=== PATIENT | male | born 1950 | race Two or more races ===

== ENCOUNTER → 2016-12-01 | Outpatient (CLI) | payer BC ==
[2016-12-01 09:30] LABS: Urine RBC None Seen /hpf (0 - 3)
[2016-12-01 09:48] LABS: Basophils # (auto) 0 uL; Basophils % (auto) 0.5 % (0.0-2.0); DEFINITIVE VIEW TRANSMISSION; Eosinophils # (auto) 0.8 uL; Eosinophils % (auto) 7.9 % (0.0-7.0); Hemoglobin 16.6 g/dL (13.5-17.5); Lymphocytes % (auto) 39.9 % (10.0-50.0); Mean Corpuscular Hgb Conc. 33.2 g/dL (32.0-36.0); Mean Corpuscular Volume 90.2 fL (80.0-100.0); Mean Platelet Volume 9.3 fL (7.4-10.4); Monocytes # (auto) 1.1 uL; Monocytes % (auto) 10.6 % (0.0-12.0); Neutrophils # (auto) 4.1 uL; Neutrophils % (auto) 41.1 % (37.0-80.0); Platelet Count (auto) 213 10^3/uL (140-450); Red Cell Distribution Width 12.4 % (11.6-16.0)
[2016-12-01 10:17] LABS: Urine Bilirubin Negative (Negative); Urine Blood Negative /uL (Negative); Urine Ketone Negative (Negative); Urine Nitrite Negative (Negative); Urine Squamous Epithelial Cell FEW /hpf (<5); Urine Urobilinogen Normal (Negative); Urine pH 5.5 (5.0-8.0)
[2016-12-01 10:26] LABS: Albumin 3.9 g/dL (3.4-5.0); BUN/Creatinine Ratio 15.6; Bilirubin, Total 1.8 mg/dL (0.2-1.0); Calcium 9.6 mg/dL (8.5-10.1); Potassium 3.8 mmol/L (3.5-5.1); Total Protein 7.5 g/dL (6.4-8.2); Uric Acid 4.2 mg/dL (3.5-7.2)
[2016-12-01 10:40] LABS: Urine Color Yellow (Yellow); Urine Glucose 4+ mg/dL (Normal)
== END | disposition home or self-care (01) ==
LOC: LAB 08:42
PROVIDERS: ATTEND Internal Medicine
DX: E11.42 Type 2 diabetes mellitus with diabetic polyneuropathy (principal); I10 Essential (primary) hypertension; E78.2 Mixed hyperlipidemia; E11.22 Type 2 diabetes mellitus with diabetic chronic kidney disease; Z12.5 Encounter for screening for malignant neoplasm of prostate
CPT/HCPCS: 36415; 80053; 80061; 81001; 82270; 82306; 83036; 83970; 84153; 84439; 84443; 84550; 85025

== ENCOUNTER → 2016-12-20 | Outpatient (CLI) | payer BC | END | disposition home or self-care (01) | LOC: XYW 10:58 | PROVIDERS: ATTEND Internal Medicine | DX: I25.10 Atherosclerotic heart disease of native coronary artery without angina pectoris (principal); I08.3 Combined rheumatic disorders of mitral, aortic and tricuspid valves; I27.2 Other secondary pulmonary hypertension | CPT/HCPCS: 93306 ==

== ENCOUNTER → 2017-03-21 | Outpatient (CLI) | payer MEDICARE, BC ==
[~2017-03-21] MED LIST: ALBU18 IN; ALBUTEROL SULF 2.5 MG/0.5ML(0.5%) NEB SOLN ONE; ASPI-231 PO; ATEN-60 PO; ATOR20TA50 PO; CHOL1000 PO; GABA-497 PO; HYDR-4663 PO; INSLANTI SC; INSLISPI SC; LOSA50TA6 PO; [UNRECOGNIZED DRUG - CODE] PO
== END | disposition home or self-care (01) ==
LOC: RT 08:45
PROVIDERS: ATTEND Internal Medicine
DX: J44.9 Chronic obstructive pulmonary disease, unspecified (principal)
CPT/HCPCS: 94060; 94640

== ENCOUNTER → 2017-05-18 | Outpatient (CLI) | payer MEDICARE, OTHER ==
[~2017-05-18] MED LIST changes: -ALBUTEROL SULF 2.5 MG/0.5ML(0.5%) NEB SOLN ONE
[2017-05-18 10:09] LABS: Urine RBC None Seen /hpf (0 - 3)
[2017-05-18 10:20] LABS: Urine Bilirubin Negative (Negative); Urine Blood Negative /uL (Negative); Urine Glucose 4+ mg/dL (Normal); Urine Ketone Negative (Negative); Urine Nitrite Negative (Negative); Urine Urobilinogen Normal (Negative); Urine pH 5.5 (5.0-8.0)
[2017-05-18 10:24] LABS: Urine Color Straw (Yellow)
[2017-05-18 10:44] LABS: BUN/Creatinine Ratio 15.8; Calcium 9.4 mg/dL (8.5-10.1); Potassium 3.9 mmol/L (3.5-5.1)
== END | disposition home or self-care (01) ==
LOC: LAB 09:55
PROVIDERS: ATTEND Internal Medicine
DX: N18.9 Chronic kidney disease, unspecified (principal); E11.9 Type 2 diabetes mellitus without complications; I50.33 Acute on chronic diastolic (congestive) heart failure
CPT/HCPCS: 36415; 80048; 81001; 83036

== ENCOUNTER → 2017-09-03 | Outpatient (CLI) | payer MEDICARE, OTHER ==
[~2017-09-03] MED LIST changes: -HYDR-4663 PO; +HYDR-4683 PO
[2017-09-03 07:34] LABS: Urine RBC None Seen /hpf (0 - 3)
[2017-09-03 07:37] LABS: Basophils # (auto) 0.1 uL; Basophils % (auto) 0.9 % (0.0-2.0); Eosinophils # (auto) 0.6 uL; Eosinophils % (auto) 6.1 % (0.0-7.0); Hematocrit 48.7 % (41.0-53.0); Hemoglobin 16.6 g/dL (13.5-17.5); Lymphocytes # (auto) 3.5 uL; Lymphocytes % (auto) 36.8 % (10.0-50.0); Mean Corpuscular Hemoglobin 31.1 pg (28.0-32.0); Mean Corpuscular Volume 91.3 fL (80.0-100.0); Mean Platelet Volume 8.7 fL (6.9-10.8); Monocytes % (auto) 10.3 % (0.0-12.0); Neutrophils # (auto) 4.4 uL; Neutrophils % (auto) 45.9 % (37.0-80.0); Nucleated Red Blood Cells % 0.1 %; Platelet Count (auto) 185 10^3/uL (140-450); White Blood Cell 9.6 10^3/uL (4.4-10.8)
[2017-09-03 07:57] LABS: Albumin 3.9 g/dL (3.4-5.0); Alkaline Phosphatase 114 U/L (45-117); Anion Gap 8 (5-15); Aspartate Aminotransferase 24 U/L (15-37); BUN/Creatinine Ratio 19.5; Blood Urea Nitrogen 36 mg/dL (7-18); Calcium 9.2 mg/dL (8.5-10.1); Carbon Dioxide 24 mmol/L (21-32); Chloride 105 mmol/L (98-107); Cholesterol 173 mg/dL (< 200); GFR African American 47 mL/min; GFR Non-African American 39 mL/min; Glucose 259 mg/dL (74-106); HDL Cholesterol 33 mg/dL (40-59); Potassium 4.1 mmol/L (3.5-5.1); Sodium 137 mmol/L (136-145); Total Protein 7.6 g/dL (6.4-8.2); Triglycerides 436 mg/dL (< 150)
[2017-09-03 08:03] LABS: Urine Bilirubin Negative (Negative); Urine Blood Negative /uL (Negative); Urine Color Yellow (Yellow); Urine Glucose 4+ mg/dL (Normal); Urine Ketone Negative (Negative); Urine Nitrite Negative (Negative); Urine Squamous Epithelial Cell FEW /hpf (<5); Urine Urobilinogen Normal (Negative); Urine pH 5.5 (5.0-8.0)
== END | disposition home or self-care (01) ==
LOC: LAB 07:05
PROVIDERS: ATTEND Physician Assistant
DX: Z00.01 Encounter for general adult medical examination with abnormal findings (principal); I10 Essential (primary) hypertension; E11.9 Type 2 diabetes mellitus without complications; E78.2 Mixed hyperlipidemia
CPT/HCPCS: 36415; 80053; 80061; 81001; 83036; 85025

== ENCOUNTER → 2017-10-09 | Outpatient (CLI) | payer MEDICARE, OTHER ==
[~2017-10-09] VITALS: Ht 172.7 cm; Wt 104.8 kg
[~2017-10-09] MED LIST changes: +ADENOSINE 88 MG in GIVE UN-DILUTED 0 ML IV ONE; -GABA-497 PO; +GABA300C11 PO
[2017-10-09 09:52] VITALS: BP 139/76
== END | disposition home or self-care (01) ==
LOC: XY 07:53
PROVIDERS: ATTEND Internal Medicine
DX: I25.10 Atherosclerotic heart disease of native coronary artery without angina pectoris (principal)
CPT/HCPCS: 93017; J0153

== ENCOUNTER → 2017-10-30 | Outpatient (CLI) | payer MEDICARE, OTHER ==
[~2017-10-30] MED LIST changes: -ADENOSINE 88 MG in GIVE UN-DILUTED 0 ML IV ONE
== END | disposition home or self-care (01) ==
LOC: LAB 10:25
PROVIDERS: ATTEND Internal Medicine Cardiovascular Disease
DX: I13.0 Hypertensive heart and chronic kidney disease with heart failure and stage 1 through stage 4 chronic kidney disease, or unspecified chronic kidney disease (principal); E11.22 Type 2 diabetes mellitus with diabetic chronic kidney disease; I50.9 Heart failure, unspecified; N18.3 Chronic kidney disease, stage 3 (moderate); J44.9 Chronic obstructive pulmonary disease, unspecified; I25.10 Atherosclerotic heart disease of native coronary artery without angina pectoris; E78.5 Hyperlipidemia, unspecified
CPT/HCPCS: 83880

== ENCOUNTER → 2018-01-08 | Outpatient (CLI) | payer MEDICARE, OTHER ==
[2018-01-08 08:12] LABS: Basophils # (auto) 0.1 uL; Basophils % (auto) 0.9 % (0.0-2.0); Eosinophils # (auto) 0.5 uL; Eosinophils % (auto) 5.3 % (0.0-7.0); Hematocrit 46.6 % (41.0-53.0); Hemoglobin 15.6 g/dL (13.5-17.5); Lymphocytes # (auto) 3.5 uL; Lymphocytes % (auto) 40.9 % (10.0-50.0); Mean Corpuscular Hemoglobin 30.1 pg (28.0-32.0); Mean Corpuscular Hgb Conc. 33.5 g/dL (32.0-36.0); Mean Corpuscular Volume 89.7 fL (80.0-100.0); Monocytes # (auto) 0.9 uL; Monocytes % (auto) 10.2 % (0.0-12.0); Neutrophils # (auto) 3.7 uL; Neutrophils % (auto) 42.7 % (37.0-80.0); Nucleated Red Blood Cells % 0.1 %; Platelet Count (auto) 207 10^3/uL (140-450); Red Blood Cells 5.19 10^6/uL (4.5-5.90); Red Cell Distribution Width 12.7 % (11.8-14.3); White Blood Cell 8.6 10^3/uL (4.4-10.8)
[2018-01-08 08:56] LABS: Anion Gap 9 (5-15); BUN/Creatinine Ratio 21.5; Blood Urea Nitrogen 52 mg/dL (7-18); Calcium 9.7 mg/dL (8.5-10.1); Carbon Dioxide 21 mmol/L (21-32); Chloride 105 mmol/L (98-107); Cholesterol 213 mg/dL (< 200); GFR African American 34 mL/min; GFR Non-African American 28 mL/min; Glucose 225 mg/dL (74-106); HDL Cholesterol 33 mg/dL (40-59); Potassium 4.8 mmol/L (3.5-5.1); Sodium 135 mmol/L (136-145); Triglycerides 459 mg/dL (< 150)
== END | disposition home or self-care (01) ==
LOC: LAB 07:22
PROVIDERS: ATTEND Internal Medicine Cardiovascular Disease
DX: E11.22 Type 2 diabetes mellitus with diabetic chronic kidney disease (principal); I13.0 Hypertensive heart and chronic kidney disease with heart failure and stage 1 through stage 4 chronic kidney disease, or unspecified chronic kidney disease; N18.3 Chronic kidney disease, stage 3 (moderate); I50.22 Chronic systolic (congestive) heart failure; E78.5 Hyperlipidemia, unspecified; J44.9 Chronic obstructive pulmonary disease, unspecified
CPT/HCPCS: 36415; 80048; 80061; 83036; 83880; 85025

== ENCOUNTER → 2018-04-02 | Outpatient (CLI) | payer MEDICARE, OTHER ==
[~2018-04-02] MED LIST changes: +LINA5TAB PO; +SPIR25TA89 PO
[2018-04-02 07:52] LABS: Basophils # (auto) 0.1 uL; Basophils % (auto) 0.6 % (0.0-2.0); Eosinophils # (auto) 0.3 uL; Eosinophils % (auto) 4.4 % (0.0-7.0); Hematocrit 43.9 % (41.0-53.0); Hemoglobin 14.9 g/dL (13.5-17.5); Lymphocytes # (auto) 2.8 uL; Lymphocytes % (auto) 35.2 % (10.0-50.0); Mean Corpuscular Hemoglobin 31.2 pg (28.0-32.0); Mean Corpuscular Volume 91.8 fL (80.0-100.0); Monocytes # (auto) 0.8 uL; Monocytes % (auto) 10.2 % (0.0-12.0); Neutrophils # (auto) 3.9 uL; Neutrophils % (auto) 49.6 % (37.0-80.0); Nucleated Red Blood Cells % 0.1 %; Platelet Count (auto) 216 10^3/uL (140-450); Red Blood Cells 4.78 10^6/uL (4.5-5.90); Red Cell Distribution Width 12.8 % (11.8-14.3); White Blood Cell 7.9 10^3/uL (4.4-10.8)
[2018-04-02 08:15] LABS: Alanine Aminotransferase 50 U/L (16-61); Albumin 3.9 g/dL (3.4-5.0); Alkaline Phosphatase 95 U/L (45-117); Anion Gap 12 (5-15); Aspartate Aminotransferase 25 U/L (15-37); BUN/Creatinine Ratio 23.4; Bilirubin, Total 0.9 mg/dL (0.2-1.0); Blood Urea Nitrogen 58 mg/dL (7-18); Calcium 9.6 mg/dL (8.5-10.1); Carbon Dioxide 19 mmol/L (21-32); Chloride 104 mmol/L (98-107); Cholesterol 246 mg/dL (< 200); GFR African American 34 mL/min; GFR Non-African American 28 mL/min; Glucose 230 mg/dL (74-106); HDL Cholesterol 28 mg/dL (40-59); Sodium 135 mmol/L (136-145); Total Protein 7.7 g/dL (6.4-8.2); Triglycerides 819 mg/dL (< 150)
== END | disposition home or self-care (01) ==
LOC: LAB 07:23
PROVIDERS: ATTEND Physician Assistant
DX: R35.1 Nocturia (principal); I13.0 Hypertensive heart and chronic kidney disease with heart failure and stage 1 through stage 4 chronic kidney disease, or unspecified chronic kidney disease; E11.22 Type 2 diabetes mellitus with diabetic chronic kidney disease; I50.22 Chronic systolic (congestive) heart failure; N18.3 Chronic kidney disease, stage 3 (moderate); I25.5 Ischemic cardiomyopathy; E78.5 Hyperlipidemia, unspecified; Z79.899 Other long term (current) drug therapy; Z79.4 Long term (current) use of insulin; Z79.82 Long term (current) use of aspirin
CPT/HCPCS: 36415; 80053; 80061; 83036; 84153; 85025

== ENCOUNTER → 2018-07-22 | Outpatient (CLI) | payer MEDICARE, OTHER ==
[~2018-07-22] MED LIST changes: +LOSA-46 PO; -LOSA50TA6 PO; +SPIR25TA8 PO; -SPIR25TA89 PO
[2018-07-22 10:43] LABS: Basophils # (auto) 0.1 uL; Basophils % (auto) 0.9 % (0.0-2.0); Eosinophils # (auto) 0.4 uL; Eosinophils % (auto) 6.2 % (0.0-7.0); Hematocrit 51.6 % (41.0-53.0); Hemoglobin 17.1 g/dL (13.5-17.5); Lymphocytes # (auto) 2.7 uL; Lymphocytes % (auto) 38.2 % (10.0-50.0); Mean Corpuscular Hemoglobin 30.9 pg (28.0-32.0); Mean Corpuscular Hgb Conc. 33.2 g/dL (32.0-36.0); Mean Corpuscular Volume 93.1 fL (80.0-100.0); Monocytes # (auto) 0.8 uL; Monocytes % (auto) 10.7 % (0.0-12.0); Neutrophils # (auto) 3.1 uL; Platelet Count (auto) 204 10^3/uL (140-450); Red Blood Cells 5.54 10^6/uL (4.5-5.90); Red Cell Distribution Width 13.2 % (11.8-14.3); White Blood Cell 7.1 10^3/uL (4.4-10.8)
[2018-07-22 10:53] LABS: Urine Bacteria NONE SEEN /hpf (None Seen); Urine Blood Negative /uL (Negative); Urine Specific Gravity 1.013 (1.001-1.035); Urine WBC <1 /hpf (0 - 3)
[2018-07-22 11:56] LABS: Calcium 9.4 mg/dL (8.5-10.1)
[2018-07-22 11:58] LABS: Protein, Urine 26.3 mg/dL (0.0-11.9)
[2018-07-22 11:59] LABS: BUN/Creatinine Ratio 16.3; Phosphorus 2.5 mg/dL (2.5-4.90)
== END | disposition home or self-care (01) ==
LOC: LAB 09:12
PROVIDERS: ATTEND Student in an Organized Health Care Education/Training Program
DX: I12.9 Hypertensive chronic kidney disease with stage 1 through stage 4 chronic kidney disease, or unspecified chronic kidney disease (principal); E13.22 Other specified diabetes mellitus with diabetic chronic kidney disease; N18.3 Chronic kidney disease, stage 3 (moderate); R80.9 Proteinuria, unspecified; R82.90 Unspecified abnormal findings in urine; E83.39 Other disorders of phosphorus metabolism; D63.1 Anemia in chronic kidney disease
CPT/HCPCS: 36415; 80048; 81001; 82570; 83036; 84100; 84156; 85025

== ENCOUNTER → 2018-08-06 | Outpatient (CLI) | payer MEDICARE, OTHER ==
[2018-08-06 08:19] LABS: Urine WBC None Seen /hpf (0 - 3)
[2018-08-06 08:30] LABS: Urine Bacteria NONE SEEN /hpf (None Seen); Urine Blood Negative /uL (Negative); Urine Specific Gravity 1.019 (1.001-1.035)
[2018-08-06 08:31] LABS: Basophils # (auto) 0.1 uL; Basophils % (auto) 0.7 % (0.0-2.0); Eosinophils # (auto) 0.5 uL; Eosinophils % (auto) 6.7 % (0.0-7.0); Hematocrit 51.3 % (41.0-53.0); Lymphocytes # (auto) 2.9 uL; Lymphocytes % (auto) 37.8 % (10.0-50.0); Mean Corpuscular Hemoglobin 30.8 pg (28.0-32.0); Mean Corpuscular Hgb Conc. 33.2 g/dL (32.0-36.0); Mean Corpuscular Volume 92.5 fL (80.0-100.0); Monocytes # (auto) 0.8 uL; Monocytes % (auto) 9.9 % (0.0-12.0); Neutrophils # (auto) 3.4 uL; Neutrophils % (auto) 44.9 % (37.0-80.0); Platelet Count (auto) 206 10^3/uL (140-450); Red Blood Cells 5.54 10^6/uL (4.5-5.90); Red Cell Distribution Width 13.3 % (11.8-14.3); White Blood Cell 7.6 10^3/uL (4.4-10.8)
[2018-08-06 08:45] LABS: Albumin 3.9 g/dL (3.4-5.0); Calcium 9.3 mg/dL (8.5-10.1); Potassium 4.3 mmol/L (3.5-5.1)
[2018-08-06 08:49] LABS: BUN/Creatinine Ratio 16.6; Bilirubin, Total 1.1 mg/dL (0.2-1.0); Total Protein 7.5 g/dL (6.4-8.2)
== END | disposition home or self-care (01) ==
LOC: LAB 07:45
PROVIDERS: ATTEND Physician Assistant
DX: E11.22 Type 2 diabetes mellitus with diabetic chronic kidney disease (principal); I13.0 Hypertensive heart and chronic kidney disease with heart failure and stage 1 through stage 4 chronic kidney disease, or unspecified chronic kidney disease; N18.3 Chronic kidney disease, stage 3 (moderate); I50.22 Chronic systolic (congestive) heart failure; E78.5 Hyperlipidemia, unspecified; G47.33 Obstructive sleep apnea (adult) (pediatric); E78.1 Pure hyperglyceridemia
CPT/HCPCS: 36415; 80053; 80061; 81001; 83036; 84153; 85025

== ENCOUNTER → 2018-11-01 | Outpatient (CLI) | payer MEDICARE, OTHER ==
[2018-11-01 09:16] LABS: Basophils # (auto) 0 uL; Basophils % (auto) 0.6 % (0.0-2.0); Eosinophils # (auto) 0.3 uL; Eosinophils % (auto) 4.5 % (0.0-7.0); Hematocrit 50.3 % (41.0-53.0); Hemoglobin 17.2 g/dL (13.5-17.5); Lymphocytes # (auto) 3.2 uL; Lymphocytes % (auto) 42.7 % (10.0-50.0); Mean Corpuscular Hemoglobin 30.9 pg (28.0-32.0); Mean Corpuscular Hgb Conc. 34.2 g/dL (32.0-36.0); Mean Corpuscular Volume 90.2 fL (80.0-100.0); Monocytes # (auto) 0.8 uL; Neutrophils # (auto) 3.2 uL; Neutrophils % (auto) 42.2 % (37.0-80.0); Nucleated Red Blood Cells % 0.2 %; Platelet Count (auto) 194 10^3/uL (140-450); Red Blood Cells 5.57 10^6/uL (4.5-5.90); Red Cell Distribution Width 13.3 % (11.8-14.3); Urine Blood Negative /uL (Negative); Urine Specific Gravity 1.013 (1.001-1.035); White Blood Cell 7.6 10^3/uL (4.4-10.8)
[2018-11-01 09:24] LABS: Creatinine, Urine 81 mg/dL (30.0-125.0); Sodium Urine 100 mmol/L (40-220)
[2018-11-01 10:03] LABS: Albumin 3.8 g/dL (3.4-5.0); Calcium 9.1 mg/dL (8.5-10.1)
[2018-11-01 10:06] LABS: BUN/Creatinine Ratio 13.7; Bilirubin, Total 1.3 mg/dL (0.2-1.0); Total Protein 7.3 g/dL (6.4-8.2)
== END | disposition home or self-care (01) ==
LOC: LAB 08:42
PROVIDERS: ATTEND Student in an Organized Health Care Education/Training Program
DX: R80.9 Proteinuria, unspecified (principal)
CPT/HCPCS: 36415; 80053; 81003; 82570; 84133; 84300; 85025

== ENCOUNTER → 2019-04-28 | Outpatient (CLI) | payer MEDICARE, OTHER ==
[~2019-04-28] MED LIST changes: -HYDR-4683 PO; +HYDR-4833 PO; -LOSA-46 PO; +LOSA-69 PO
[2019-04-28 09:53] LABS: Urine Blood Negative /uL (Negative); Urine Specific Gravity 1.007 (1.001-1.035)
[2019-04-28 09:57] LABS: Basophils # (auto) 0.1 uL; Eosinophils # (auto) 0.3 uL; Lymphocytes # (auto) 3.2 uL; Lymphocytes % (auto) 39.4 % (10.0-50.0); Red Cell Distribution Width 13.2 % (11.8-14.3)
[2019-04-28 10:00] LABS: Basophils % (auto) 0.6 % (0.0-2.0); Eosinophils % (auto) 4.2 % (0.0-7.0); Hematocrit 51.8 % (41.0-53.0); Hemoglobin 17.8 g/dL (13.5-17.5); Mean Corpuscular Hgb Conc. 34.3 g/dL (32.0-36.0); Mean Corpuscular Volume 90.5 fL (80.0-100.0); Monocytes # (auto) 0.8 uL; Monocytes % (auto) 10.3 % (0.0-12.0); Neutrophils # (auto) 3.7 uL; Neutrophils % (auto) 45.5 % (37.0-80.0); Nucleated Red Blood Cells % 0.2 %; Platelet Count (auto) 186 10^3/uL (140-450); Red Blood Cells 5.73 10^6/uL (4.5-5.90); White Blood Cell 8.2 10^3/uL (4.4-10.8)
[2019-04-28 10:28] LABS: Creatinine, Urine 23 mg/dL (30.0-125.0); Protein, Urine 24.9 mg/dL (0.0-11.9)
[2019-04-28 10:29] LABS: Albumin 3.9 g/dL (3.4-5.0); BUN/Creatinine Ratio 19.7; Calcium 9.5 mg/dL (8.5-10.1); Phosphorus 3.1 mg/dL (2.5-4.90); Uric Acid 5.3 mg/dL (3.5-7.2)
== END | disposition home or self-care (01) ==
LOC: LAB 09:11
PROVIDERS: ATTEND Student in an Organized Health Care Education/Training Program
DX: E55.9 Vitamin D deficiency, unspecified (principal); I12.9 Hypertensive chronic kidney disease with stage 1 through stage 4 chronic kidney disease, or unspecified chronic kidney disease; E11.22 Type 2 diabetes mellitus with diabetic chronic kidney disease; N18.3 Chronic kidney disease, stage 3 (moderate); D63.1 Anemia in chronic kidney disease; E21.3 Hyperparathyroidism, unspecified; N39.0 Urinary tract infection, site not specified; M10.9 Gout, unspecified
CPT/HCPCS: 36415; 80069; 81003; 82306; 82570; 83970; 84156; 84550; 85025

== ENCOUNTER → 2019-11-04 | Outpatient (CLI) | payer MEDICARE, OTHER ==
[2019-11-04 09:25] LABS: Urine WBC None Seen /hpf (0 - 3)
[2019-11-04 09:34] LABS: Basophils # (auto) 0.1 uL; Basophils % (auto) 0.7 % (0.0-2.0); Eosinophils # (auto) 0.3 uL; Lymphocytes # (auto) 3.1 uL; Monocytes # (auto) 0.9 uL; White Blood Cell 8.5 10^3/uL (4.4-10.8)
[2019-11-04 09:37] LABS: Eosinophils % (auto) 3.6 % (0.0-7.0); Hematocrit 53.3 % (41.0-53.0); Hemoglobin 18.4 g/dL (13.5-17.5); Lymphocytes % (auto) 36.5 % (10.0-50.0); Mean Corpuscular Hemoglobin 31.6 pg (28.0-32.0); Mean Corpuscular Hgb Conc. 34.5 g/dL (32.0-36.0); Mean Corpuscular Volume 91.6 fL (80.0-100.0); Monocytes % (auto) 10.5 % (0.0-12.0); Neutrophils # (auto) 4.2 uL; Neutrophils % (auto) 48.7 % (37.0-80.0); Nucleated Red Blood Cells % 0.1 %; Platelet Count (auto) 183 10^3/uL (140-450); Red Blood Cells 5.82 10^6/uL (4.5-5.90)
[2019-11-04 09:44] LABS: Urine Bacteria NONE SEEN /hpf (None Seen); Urine Blood Negative /uL (Negative); Urine Specific Gravity 1.018 (1.001-1.035)
[2019-11-04 09:56] LABS: Potassium 4.4 mmol/L (3.5-5.1)
[2019-11-04 10:08] LABS: Albumin 3.9 g/dL (3.4-5.0); BUN/Creatinine Ratio 16.9; Bilirubin, Total 1.1 mg/dL (0.2-1.0); Calcium 9.7 mg/dL (8.5-10.1); Total Protein 7.7 g/dL (6.4-8.2)
== END | disposition home or self-care (01) ==
LOC: LAB 08:43
PROVIDERS: ATTEND Student in an Organized Health Care Education/Training Program
DX: Z12.5 Encounter for screening for malignant neoplasm of prostate (principal); E11.22 Type 2 diabetes mellitus with diabetic chronic kidney disease; E11.69 Type 2 diabetes mellitus with other specified complication; I12.9 Hypertensive chronic kidney disease with stage 1 through stage 4 chronic kidney disease, or unspecified chronic kidney disease; N18.3 Chronic kidney disease, stage 3 (moderate); E78.5 Hyperlipidemia, unspecified; E78.1 Pure hyperglyceridemia
CPT/HCPCS: 36415; 80053; 80061; 81001; 83036; 84153; 85025

== ENCOUNTER → 2019-11-27 | Outpatient (CLI) | payer MEDICARE | END | disposition home or self-care (01) | LOC: XYW 13:51 | PROVIDERS: ATTEND Internal Medicine Pulmonary Disease | DX: I70.0 Atherosclerosis of aorta (principal); R06.02 Shortness of breath | CPT/HCPCS: 71046; 78582; A9540; A9558 ==

== ENCOUNTER → 2019-11-28 | Outpatient (CLI) | payer MEDICARE | END | disposition home or self-care (01) | LOC: XYW 09:45 | PROVIDERS: ATTEND Internal Medicine | DX: I34.0 Nonrheumatic mitral (valve) insufficiency (principal) | CPT/HCPCS: 93306 ==

== ENCOUNTER → 2019-12-29 | Outpatient (CLI) | payer MEDICARE ==
[2019-12-29 11:39] LABS: BUN/Creatinine Ratio 14.8; Calcium 9.6 mg/dL (8.5-10.1); Potassium 4.1 mmol/L (3.5-5.1)
== END | disposition home or self-care (01) ==
LOC: LAB 10:55
PROVIDERS: ATTEND Internal Medicine
DX: R06.09 Other forms of dyspnea (principal)
CPT/HCPCS: 36415; 80048; 83880

== ENCOUNTER → 2020-02-17 | Outpatient (CLI) | payer MEDICARE ==
[2020-02-17 11:32] LABS: Calcium 9.9 mg/dL (8.5-10.1); Potassium 3.9 mmol/L (3.5-5.1)
== END | disposition home or self-care (01) ==
LOC: LAB 10:17
PROVIDERS: ATTEND Internal Medicine
DX: R06.02 Shortness of breath (principal); I10 Essential (primary) hypertension
CPT/HCPCS: 36415; 80048; 83880

== ENCOUNTER → 2020-02-26 | Outpatient (CLI) | payer MEDICARE ==
[~2020-02-26] MED LIST changes: +ASPI-498 PO; +CANA300T PO; +CARV12.544 PO; +CARV25TA55 PO; +CHOL1TAB42 PO; +FLUT110A INH; +FURO1TAB31 PO; +GABA-339 PO; +HYDR-392 PO; +LEVO500T21 PO; +METR500T PO; +PANT40TA2 PO; +SACU1TAB PO; +SUCR1TAB22 PO
== END | disposition home or self-care (01) ==
LOC: XYW 10:24
PROVIDERS: ATTEND Internal Medicine
DX: I08.3 Combined rheumatic disorders of mitral, aortic and tricuspid valves (principal); I10 Essential (primary) hypertension; I25.5 Ischemic cardiomyopathy
CPT/HCPCS: 93306

== ENCOUNTER 2020-05-12 00:04 | Inpatient (IN) | payer MEDICARE, BC ==
[~2020-05-12] VITALS: Ht 172.7 cm; Wt 96.2 kg
[~2020-05-12 00:04] MED LIST changes: -ASPI-498 PO; -CANA300T PO; -CARV12.544 PO; -CARV25TA55 PO; -CHOL1TAB42 PO; -FLUT110A INH; -FURO1TAB31 PO; -GABA-339 PO; -HYDR-392 PO; -LEVO500T21 PO; -METR500T PO; -PANT40TA2 PO; -SACU1TAB PO; -SUCR1TAB22 PO
[2020-05-12] MEDS ORDERED: PANTOPRAZOLE 40 MG/10 ML VIAL INJ IV ONE ×2 (02:23→05:15)
[2020-05-12] MEDS ORDERED: PANTOPRAZOLE 40mg/50ML NS AE 50 ML IV ONE ×2 (02:23→05:15)
[2020-05-12 03:55] LABS: INR 1.08 (0.9-1.15); Partial Thromboplastin Time 25.7 sec (23.0-31.2)
[2020-05-12 03:57] LABS: Basophils # (auto) 0.1 10 ^3/uL (0-0.2); Basophils % (auto) 0.6 % (0.0-2.0); Eosinophils # (auto) 0.3 10 ^3/uL (0-0.8); Eosinophils % (auto) 2.4 % (0.0-7.0); Hematocrit 48.4 % (41.0-53.0); Hemoglobin 16.1 g/dL (13.5-17.5); Lymphocytes # (auto) 4.1 10 ^3/uL (0.4-5.4); Lymphocytes % (auto) 29.6 % (10.0-50.0); Mean Corpuscular Hemoglobin 30.8 pg (28.0-32.0); Mean Corpuscular Hgb Conc. 33.2 g/dL (32.0-36.0); Mean Corpuscular Volume 92.7 fL (80.0-100.0); Monocytes % (auto) 7.4 % (0.0-12.0); Neutrophils # (auto) 8.3 10 ^3/uL (1.6-8.6); Nucleated Red Blood Cells % 0.2 %; Platelet Count (auto) 217 10^3/uL (140-450); Red Blood Cells 5.22 10^6/uL (4.5-5.90); Red Cell Distribution Width 12.8 % (11.8-14.3); White Blood Cell 13.9 10^3/uL (4.4-10.8)
[2020-05-12 03:58] LABS: Albumin 3.6 g/dL (3.4-5.0); BUN/Creatinine Ratio 26.7; Bilirubin, Total 1.7 mg/dL (0.2-1.0); Calcium 8.9 mg/dL (8.5-10.1); Potassium 5.5 mmol/L (3.5-5.1); Total Protein 7.4 g/dL (6.4-8.2)
[2020-05-12] MEDS ORDERED: SODIUM CHLORIDE 0.9% 1,000 ML IV ONE ×2 (05:15→14:00)
[2020-05-12] MEDS ORDERED: ONDANSETRON HCL 4 MG/2 ML VIAL IV PRN (06:00)
[2020-05-12] MEDS ORDERED: DEXTROSE (50%) 50ML SYRG IV PRN (06:00)
[2020-05-12] MEDS ORDERED: SODIUM ZIRCONIUM CYCL 10 GM PAK PO ONE (06:00)
[2020-05-12] MEDS ORDERED: NITROGLYCERIN 0.4 MG SL TAB SL PRN (06:00)
[2020-05-12] MEDS ORDERED: MORPHINE SULF INJ 2 MG/ML SYRINGE 1ML IV PRN (06:00)
[2020-05-12 06:14] LABS: Hematocrit 44.5 % (41.0-53.0); Hemoglobin 15.1 g/dL (13.5-17.5)
[2020-05-12] MEDS: ACCU-CHEK COMFORT CURVE STRIP VI SCH ×4 (06:21→23:55)
[2020-05-12] MEDS: InsuLIN REG 1unit/0.01ml Soln (100units/ml) SC SCH ×4 (06:21→23:55)
--- NOTE | 2020-05-12 10:30 | NUR ---
Telemetry admit from ER PAM MIX admitted to Telemetry unit after SBAR received. Patient oriented to LIANA GALDAMEZ, primary RN, unit, room, bed, and unit policies regarding patient care and visiting hours. Patient now on continuous telemetry monitoring, tele box #40. Patient weighed by bedscale and encouraged to call if they need something. All questions and concerns addressed, patient verbalized understanding. Pt is NPO. No vomiting noted at this time.
[2020-05-12] MEDS: PANTOPRAZOLE 40 MG/10 ML VIAL INJ IV SCH ×2 (10:42→21:38)
[2020-05-12] MEDS ORDERED: GABA-339 PO (11:56)
[2020-05-12] MEDS ORDERED: FURO1TAB31 PO (11:56)
[2020-05-12] MEDS ORDERED: INSLANTI SC (11:56)
[2020-05-12] MEDS ORDERED: LINA5TAB PO (11:56)
[2020-05-12] MEDS ORDERED: CARV12.544 PO (11:56)
[2020-05-12] MEDS ORDERED: INSLISPI SC (11:56)
[2020-05-12] MEDS ORDERED: SACU1TAB PO (11:56)
[2020-05-12] MEDS ORDERED: CANA300T PO (11:56)
[2020-05-12] MEDS ORDERED: CHOL1TAB42 PO (12:03)
[2020-05-12] MEDS ORDERED: HYDR-392 PO (12:07)
[2020-05-12] MEDS ORDERED: ASPI-498 PO (12:07)
[2020-05-12] MEDS ORDERED: CARV25TA55 PO (12:08)
[2020-05-12 12:12] VITALS: BP 136/82
[2020-05-12] MEDS ORDERED: FLUT110A INH (12:23)
[2020-05-12] MEDS ORDERED: SODIUM CHLORIDE LOCK 10 ML ONE (12:28)
[2020-05-12] MEDS ORDERED: LIDOCAINE VISCOUS 2% 15ML UD ONE (12:28)
[2020-05-12] MEDS ORDERED: diphenhdrAMINE HCL 50 MG/1 ML VL ONE (12:29)
[2020-05-12] MEDS ORDERED: cefTRIAXone 1GM/50ML D5W 50 ML IV ONE (14:00)
[2020-05-12] MEDS ORDERED: hydrALAZINE HCL 20 MG/ML VL IV PRN (14:00)
--- NOTE | 2020-05-12 14:02 | NUR ---
EGD Patient was taken down in bed for EGD. All consents were signed. All belongings left in room. Checklist filled out.
--- NOTE | 2020-05-12 14:57 | NUR ---
Attempted PT eval, pt is off unit for procedure. Will attempt again.
[2020-05-12] MEDS: MIDAZOLAM HCL 5 MG/ML-1ML VIAL ONE ×3 (15:12→15:18)
[2020-05-12] MEDS: fentaNYL CITRATE 100 MCG/2 ML VL ONE ×3 (15:12→15:18)
[2020-05-12] MEDS: metroNIDAZOLE 500MG/100ML 100 ML IV SCH ×2 (16:43→21:38)
[2020-05-12 16:54] VITALS: BP 139/69
[2020-05-12 22:00] VITALS: BP 115/63
[2020-05-13] MEDS: ACCU-CHEK COMFORT CURVE STRIP VI SCH ×4 (05:58→23:27)
[2020-05-13] MEDS: metroNIDAZOLE 500MG/100ML 100 ML IV SCH ×3 (05:59→21:48)
[2020-05-13] MEDS: InsuLIN REG 1unit/0.01ml Soln (100units/ml) SC SCH ×4 (05:59→23:28)
[2020-05-13 06:11] LABS: Basophils # (auto) 0.1 10 ^3/uL (0-0.2); Basophils % (auto) 0.6 % (0.0-2.0); Eosinophils # (auto) 0.3 10 ^3/uL (0-0.8); Eosinophils % (auto) 2.5 % (0.0-7.0); Hematocrit 39.6 % (41.0-53.0); Hemoglobin 13.3 g/dL (13.5-17.5); Lymphocytes # (auto) 3.6 10 ^3/uL (0.4-5.4); Mean Corpuscular Hgb Conc. 33.5 g/dL (32.0-36.0); Mean Corpuscular Volume 92.5 fL (80.0-100.0); Monocytes # (auto) 0.8 10 ^3/uL (0-1.3); Monocytes % (auto) 7.4 % (0.0-12.0); Neutrophils # (auto) 6.3 10 ^3/uL (1.6-8.6); Neutrophils % (auto) 56.5 % (37.0-80.0); Nucleated Red Blood Cells % 0.1 %; Platelet Count (auto) 187 10^3/uL (140-450); Red Blood Cells 4.28 10^6/uL (4.5-5.90); Red Cell Distribution Width 12.9 % (11.8-14.3); White Blood Cell 11.1 10^3/uL (4.4-10.8)
[2020-05-13 06:47] LABS: Albumin 3.4 g/dL (3.4-5.0); BUN/Creatinine Ratio 35.4; Bilirubin, Total 1.2 mg/dL (0.2-1.0); Calcium 8.7 mg/dL (8.5-10.1); Total Protein 6.7 g/dL (6.4-8.2)
[2020-05-13 06:52] LABS: Magnesium 2.7 mg/dL (1.6-2.6)
[2020-05-13 09:00] VITALS: BP 152/78
[2020-05-13] MEDS: cefTRIAXone 1GM/50ML D5W 50 ML IV SCH (09:24)
[2020-05-13] MEDS: PANTOPRAZOLE 40 MG/10 ML VIAL INJ IV SCH ×2 (09:24→21:48)
--- NOTE | 2020-05-13 10:55 | NUR ---
WOUND CARE NOTE: IN TO SEE PATIENT AT THIS TIME PER WOUND CARE CONSULT REQUEST. PATIENT WAS NOTED UPON ADMIT TO HAVE TWO WOUNDS TO HEAD, WOUND PHOTOS TAKEN AT THAT TIME, WOUND CONSULT ORDERED. [facility]EMATEMESIS. CURRENT KEKE SCORE IS 19. PATIENT IS ABLE TO SELF TURN/REPOSITION SELF. PATIENT ADMITS THAT HE HIT HIS HEAD ON A CABINET, RENDERING HIM WITH TWO ABRASIONS. PATIENT NOTED TO HAVE TWO PARTIAL THICKNESS ABRASIONS TO RIGHT SIDE OF HIS HEAD. CLEANSED WITH NS, PATTED DRY WITH STERILE GAUZE. APPLIED THERAHONEY, COVERED WITH OPTIFOAM GENTLE DRESSING. NO OTHER SKIN INTEGRITY ISSUES NOTED. RECOMMEND: EOD/PRN DRESSING CHANGE TO WOUNDS ON RIGHT HEAD, SKIN/WOUND CARE PLAN, CONTINUED MONITORING BY WOUND CARE TEAM. Addendum: 05/13/20 at 1757 by Chloe Adrian RN Amended: Links added.
[2020-05-13 12:47] VITALS: BP 154/71
--- NOTE | 2020-05-13 14:24 | NUR ---
BM Patient had a BM this afternoon which appeared black in color. Patient reported it was soft stool. He denies any lightheadedness but says he has been tired and sleeping a lot today. Hgb 15.1.
[2020-05-13 16:31] VITALS: BP 128/71
[2020-05-13 22:00] VITALS: BP 141/58
[2020-05-14 05:00] VITALS: BP 134/78
[2020-05-14] MEDS: metroNIDAZOLE 500MG/100ML 100 ML IV SCH (05:15)
[2020-05-14] MEDS: InsuLIN REG 1unit/0.01ml Soln (100units/ml) SC SCH (05:20)
[2020-05-14] MEDS: ACCU-CHEK COMFORT CURVE STRIP VI SCH (05:20)
[2020-05-14 06:21] LABS: Potassium 3.9 mmol/L (3.5-5.1)
[2020-05-14 06:28] LABS: Albumin 3.6 g/dL (3.4-5.0); BUN/Creatinine Ratio 24.7; Calcium 8.6 mg/dL (8.5-10.1); Total Protein 6.2 g/dL (6.4-8.2)
[2020-05-14] MEDS ORDERED: SUCRALFATE 1 GM/10 ML ORAL SUSP PO SCH (07:00)
[2020-05-14 07:58] LABS: Basophils # (auto) 0 10 ^3/uL (0-0.2); Basophils % (auto) 0.4 % (0.0-2.0); Eosinophils # (auto) 0.3 10 ^3/uL (0-0.8); Eosinophils % (auto) 3.6 % (0.0-7.0); Hemoglobin 12.1 g/dL (13.5-17.5); Lymphocytes # (auto) 3.3 10 ^3/uL (0.4-5.4); Lymphocytes % (auto) 35.5 % (10.0-50.0); Mean Corpuscular Hemoglobin 31.1 pg (28.0-32.0); Mean Corpuscular Hgb Conc. 33.6 g/dL (32.0-36.0); Mean Corpuscular Volume 92.6 fL (80.0-100.0); Monocytes # (auto) 0.6 10 ^3/uL (0-1.3); Monocytes % (auto) 6.7 % (0.0-12.0); Neutrophils # (auto) 4.9 10 ^3/uL (1.6-8.6); Neutrophils % (auto) 53.8 % (37.0-80.0); Nucleated Red Blood Cells % 0.1 %; Platelet Count (auto) 183 10^3/uL (140-450); Red Blood Cells 3.89 10^6/uL (4.5-5.90); Red Cell Distribution Width 12.7 % (11.8-14.3); White Blood Cell 9.2 10^3/uL (4.4-10.8)
[2020-05-14 08:00] VITALS: BP 139/73
[2020-05-14 09:00] VITALS: BP 139/73
[2020-05-14] MEDS: cefTRIAXone 1GM/50ML D5W 50 ML IV SCH (09:24)
[2020-05-14] MEDS: PANTOPRAZOLE 40 MG/10 ML VIAL INJ IV SCH (09:33)
--- NOTE | 2020-05-14 09:56 | NUR ---
Dr. Dillon at bedside. MD ordered to advance diet to Soft, if patient able to tolerate Soft Diet for lunch, no nausea/vomiting, no abdominal pain, discharge the patient today.
[2020-05-14] MEDS ORDERED: SUCR1TAB22 PO (11:14)
[2020-05-14] MEDS ORDERED: METR500T PO (11:14)
[2020-05-14] MEDS ORDERED: PANT40TA2 PO (11:14)
[2020-05-14] MEDS ORDERED: LEVO500T21 PO (11:14)
[2020-05-14 13:00] VITALS: BP 138/72
--- NOTE | 2020-05-14 13:10 | NUR ---
Patient able to tolerate Soft Diet. No nausea/vomiting noted.
--- NOTE | 2020-05-14 14:20 | NUR ---
Photos taken on the head/forehead area. Applied Opti foam on the wound on the head. Camera returned to [facility]. Wound Care form placed on the Wound Care tray.
--- NOTE | 2020-05-14 14:55 | NUR ---
Called [facility] ([phone]) for transport. Cab to come over in 20 minutes to hot die picker the patient.
--- NOTE | 2020-05-14 15:30 | NUR ---
Discharge instructions given as ordered. Encourage to follow up with PMD as instructed. All questions and concerns addressed. Patient verbalized understanding. Medication reconciliation form completed and copy given to patient. IV removed with catheter intact, pressure dressing applied. Telemetry unit returned to ICU. 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 No distress noted at time of departure.
== END 2020-05-14 15:30 | disposition home or self-care (01) | DRG 368 ==
LOC: ER 03:13 → TELE 03:14 → TELE-CENTR 09:55
PROVIDERS: ADMIT Nurse Practitioner; ATTEND Internal Medicine
PROC: 0DB48ZX Excision of Esophagogastric Junction, Via Natural or Artificial Opening Endoscopic, Diagnostic (ICD-10-PCS; 2020-05-12)
PROC: 0DB88ZX Excision of Small Intestine, Via Natural or Artificial Opening Endoscopic, Diagnostic (ICD-10-PCS; 2020-05-12)
PROC: 0DB68ZX Excision of Stomach, Via Natural or Artificial Opening Endoscopic, Diagnostic (ICD-10-PCS; principal; 2020-05-12 15:07)
DX: K22.6 Gastro-esophageal laceration-hemorrhage syndrome (principal); N17.0 Acute kidney failure with tubular necrosis; I50.42 Chronic combined systolic (congestive) and diastolic (congestive) heart failure; R65.10 Systemic inflammatory response syndrome (SIRS) of non-infectious origin without acute organ dysfunction; I13.0 Hypertensive heart and chronic kidney disease with heart failure and stage 1 through stage 4 chronic kidney disease, or unspecified chronic kidney disease; D62 Acute posthemorrhagic anemia; K31.7 Polyp of stomach and duodenum; K57.33 Diverticulitis of large intestine without perforation or abscess with bleeding; N18.9 Chronic kidney disease, unspecified; E87.5 Hyperkalemia; E11.22 Type 2 diabetes mellitus with diabetic chronic kidney disease; E78.5 Hyperlipidemia, unspecified; I25.10 Atherosclerotic heart disease of native coronary artery without angina pectoris; I25.5 Ischemic cardiomyopathy; Z80.1 Family history of malignant neoplasm of trachea, bronchus and lung; Z80.0 Family history of malignant neoplasm of digestive organs; Z80.3 Family history of malignant neoplasm of breast; Z80.42 Family history of malignant neoplasm of prostate; Z80.8 Family history of malignant neoplasm of other organs or systems; Z82.0 Family history of epilepsy and other diseases of the nervous system; Z82.49 Family history of ischemic heart disease and other diseases of the circulatory system; Z82.3 Family history of stroke; Z81.8 Family history of other mental and behavioral disorders; Z82.5 Family history of asthma and other chronic lower respiratory diseases; Z83.3 Family history of diabetes mellitus; Z82.62 Family history of osteoporosis; Z87.19 Personal history of other diseases of the digestive system; Z95.1 Presence of aortocoronary bypass graft
CPT/HCPCS: 36415; 43239; 71045; 74176; 80053; 80061; 82270; 82962; 83036; 83605; 83735; 85014; 85018; 85025; 85610; 85730; 86850; 86900; 86901; 93005; 97163; C9113; G0378; J0696; J1815; J2250; J3490

== ENCOUNTER → 2020-05-19 | Outpatient (CLI) | payer MEDICARE, BC ==
[~2020-05-19] MED LIST changes: -ASPI-231 PO; -ATEN-60 PO; +CANA300T PO; +CARV12.544 PO; +CARV25TA55 PO; -CHOL1000 PO; +CHOL1TAB42 PO; +FLUT110A INH; +FURO1TAB31 PO; +GABA-339 PO; -GABA300C11 PO; +HYDR-392 PO; -HYDR-4833 PO; +LEVO500T21 PO; -LOSA-69 PO; +METR500T PO; +PANT40TA2 PO; +SACU1TAB PO; -SPIR25TA8 PO; +SUCR1TAB22 PO
[2020-05-19 08:11] LABS: Urine Bacteria NONE SEEN /hpf (None Seen); Urine Blood Negative /uL (Negative); Urine Specific Gravity 1.015 (1.001-1.035); Urine WBC <1 /hpf (0 - 3)
[2020-05-19 08:14] LABS: Hematocrit 39.6 % (41.0-53.0); Hemoglobin 13.3 g/dL (13.5-17.5); Mean Corpuscular Hgb Conc. 33.6 g/dL (32.0-36.0); Mean Corpuscular Volume 92.2 fL (80.0-100.0); Platelet Count (auto) 243 10^3/uL (140-450); Red Cell Distribution Width 13.6 % (11.8-14.3); White Blood Cell 8.2 10^3/uL (4.4-10.8)
[2020-05-19 08:17] LABS: Band Neutrophils % (manual) 0; Basophils % (manual) 0 (0.0-2.0); Blast Cells 0; Myelocytes % 0; Promyelocytes % 0; Reactive Lymphocytes 0
[2020-05-19 08:28] LABS: Anion Gap 6 (5-15); Blood Urea Nitrogen 35 mg/dL (7-18); Calcium 8.9 mg/dL (8.5-10.1); Carbon Dioxide 24 mmol/L (21-32); Chloride 110 mmol/L (98-107); Glucose 272 mg/dL (74-106); Potassium 4.1 mmol/L (3.5-5.1); Sodium 140 mmol/L (136-145)
[2020-05-19 08:29] LABS: Protein, Urine 13.2 mg/dL (0.0-11.9)
[2020-05-19 08:31] LABS: BUN/Creatinine Ratio 12.9; Cholesterol 142 mg/dL (< 200); GFR African American 30 mL/min; GFR Non-African American 25 mL/min; HDL Cholesterol 31 mg/dL (40-59); Phosphorus 3.5 mg/dL (2.5-4.90); Triglycerides 469 mg/dL (< 150)
[2020-05-19 08:42] LABS: Eosinophils % (manual) 5 (0-7); Lymphocytes % (manual) 43 (10.0-50.0); Metamyelocytes % 5; Monocytes % (manual) 5 (0-12)
== END | disposition home or self-care (01) ==
LOC: LAB 07:46
PROVIDERS: ATTEND Student in an Organized Health Care Education/Training Program
DX: E11.22 Type 2 diabetes mellitus with diabetic chronic kidney disease (principal); N18.3 Chronic kidney disease, stage 3 (moderate); D63.1 Anemia in chronic kidney disease; E78.5 Hyperlipidemia, unspecified; E56.9 Vitamin deficiency, unspecified; E55.9 Vitamin D deficiency, unspecified; E21.3 Hyperparathyroidism, unspecified; R82.90 Unspecified abnormal findings in urine
CPT/HCPCS: 36415; 80048; 80061; 81001; 82306; 82570; 83036; 83970; 84100; 84156; 85007; 85027

== ENCOUNTER → 2020-06-02 | Outpatient (CLI) | payer MEDICARE, BC | END | disposition home or self-care (01) | LOC: XYW 08:55 | PROVIDERS: ATTEND Internal Medicine | DX: I07.1 Rheumatic tricuspid insufficiency (principal); I50.9 Heart failure, unspecified | CPT/HCPCS: 93306 ==

== ENCOUNTER → 2020-06-07 | Outpatient (CLI) | payer MEDICARE, BC ==
[2020-06-07 14:07] LABS: Basophils # (auto) 0.1 10 ^3/uL (0-0.2); Basophils % (auto) 0.8 % (0.0-2.0); Eosinophils # (auto) 0.3 10 ^3/uL (0-0.8); Eosinophils % (auto) 3.9 % (0.0-7.0); Hemoglobin 14.8 g/dL (13.5-17.5); Lymphocytes # (auto) 3.3 10 ^3/uL (0.4-5.4); Mean Corpuscular Hemoglobin 31.3 pg (28.0-32.0); Mean Corpuscular Hgb Conc. 34.5 g/dL (32.0-36.0); Mean Corpuscular Volume 90.8 fL (80.0-100.0); Monocytes # (auto) 0.7 10 ^3/uL (0-1.3); Monocytes % (auto) 9.6 % (0.0-12.0); Neutrophils # (auto) 2.9 10 ^3/uL (1.6-8.6); Neutrophils % (auto) 39.7 % (37.0-80.0); Nucleated Red Blood Cells % 0.1 %; Platelet Count (auto) 221 10^3/uL (140-450); Red Blood Cells 4.73 10^6/uL (4.5-5.90); Red Cell Distribution Width 13.1 % (11.8-14.3); White Blood Cell 7.2 10^3/uL (4.4-10.8)
[2020-06-07 14:22] LABS: BUN/Creatinine Ratio 14.2; Calcium 9.7 mg/dL (8.5-10.1); Potassium 4.1 mmol/L (3.5-5.1)
== END | disposition home or self-care (01) ==
LOC: LAB 13:55
PROVIDERS: ATTEND Internal Medicine
DX: Z01.818 Encounter for other preprocedural examination (principal); K92.2 Gastrointestinal hemorrhage, unspecified; K22.9 Disease of esophagus, unspecified
CPT/HCPCS: 36415; 80048; 85025

== ENCOUNTER → 2020-06-23 | Outpatient (CLI) | payer MEDICARE, BC ==
[2020-06-23 10:20] LABS: Basophils # (auto) 0.1 10 ^3/uL (0-0.2); Basophils % (auto) 1.2 % (0.0-2.0); Eosinophils # (auto) 0.3 10 ^3/uL (0-0.8); Eosinophils % (auto) 3.7 % (0.0-7.0); Hematocrit 44.1 % (41.0-53.0); Hemoglobin 14.9 g/dL (13.5-17.5); Lymphocytes # (auto) 2.4 10 ^3/uL (0.4-5.4); Mean Corpuscular Hemoglobin 30.5 pg (28.0-32.0); Mean Corpuscular Hgb Conc. 33.7 g/dL (32.0-36.0); Mean Corpuscular Volume 90.6 fL (80.0-100.0); Monocytes # (auto) 0.7 10 ^3/uL (0-1.3); Monocytes % (auto) 10.1 % (0.0-12.0); Neutrophils # (auto) 3.5 10 ^3/uL (1.6-8.6); Nucleated Red Blood Cells % 0.1 %; Platelet Count (auto) 247 10^3/uL (140-450); Red Blood Cells 4.87 10^6/uL (4.5-5.90); Red Cell Distribution Width 13.2 % (11.8-14.3)
[2020-06-23 10:23] LABS: Calcium 9.6 mg/dL (8.5-10.1)
[2020-06-23 10:27] LABS: BUN/Creatinine Ratio 14.8; Bilirubin, Total 0.6 mg/dL (0.2-1.0); Total Protein 7.7 g/dL (6.4-8.2)
[2020-06-23 10:29] LABS: INR 0.99 (0.9-1.15)
== END | disposition home or self-care (01) ==
LOC: LAB 09:45
PROVIDERS: ATTEND Internal Medicine
DX: C15.5 Malignant neoplasm of lower third of esophagus (principal)
CPT/HCPCS: 36415; 80053; 82378; 83615; 85025; 85610

== ENCOUNTER → 2020-06-25 | Outpatient (CLI) | payer MEDICARE, BC ==
[2020-06-25 12:07] LABS: Basophils # (auto) 0 10 ^3/uL (0-0.2); Basophils % (auto) 0.6 % (0.0-2.0); Eosinophils # (auto) 0.2 10 ^3/uL (0-0.8); Eosinophils % (auto) 3.2 % (0.0-7.0); Hematocrit 44.3 % (41.0-53.0); Hemoglobin 15.1 g/dL (13.5-17.5); Lymphocytes # (auto) 2.9 10 ^3/uL (0.4-5.4); Lymphocytes % (auto) 40.2 % (10.0-50.0); Mean Corpuscular Hemoglobin 30.8 pg (28.0-32.0); Mean Corpuscular Volume 90.4 fL (80.0-100.0); Monocytes # (auto) 0.8 10 ^3/uL (0-1.3); Monocytes % (auto) 10.6 % (0.0-12.0); Neutrophils # (auto) 3.2 10 ^3/uL (1.6-8.6); Neutrophils % (auto) 45.4 % (37.0-80.0); Nucleated Red Blood Cells % 0.2 %; Platelet Count (auto) 258 10^3/uL (140-450); White Blood Cell 7.1 10^3/uL (4.4-10.8)
[2020-06-25 12:13] LABS: INR 0.99 (0.9-1.15); Partial Thromboplastin Time 25.6 sec (23.0-31.2)
== END | disposition home or self-care (01) ==
LOC: LAB 11:22
PROVIDERS: ATTEND Internal Medicine
DX: C15.5 Malignant neoplasm of lower third of esophagus (principal); I50.42 Chronic combined systolic (congestive) and diastolic (congestive) heart failure
CPT/HCPCS: 36415; 85025; 85610; 85730

== ENCOUNTER → 2020-07-26 | Outpatient (CLI) | payer MEDICARE, BC ==
[2020-07-26 07:52] LABS: Urine WBC None Seen /hpf (0 - 3)
[2020-07-26 08:38] LABS: Basophils # (auto) 0.1 10 ^3/uL (0-0.2); Basophils % (auto) 0.9 % (0.0-2.0); Eosinophils # (auto) 0.3 10 ^3/uL (0-0.8); Eosinophils % (auto) 4.5 % (0.0-7.0); Hematocrit 50.3 % (41.0-53.0); Hemoglobin 16.5 g/dL (13.5-17.5); Lymphocytes # (auto) 2.5 10 ^3/uL (0.4-5.4); Lymphocytes % (auto) 36.9 % (10.0-50.0); Mean Corpuscular Hemoglobin 29.1 pg (28.0-32.0); Mean Corpuscular Hgb Conc. 32.9 g/dL (32.0-36.0); Mean Corpuscular Volume 88.6 fL (80.0-100.0); Monocytes # (auto) 0.8 10 ^3/uL (0-1.3); Monocytes % (auto) 12.6 % (0.0-12.0); Neutrophils % (auto) 45.1 % (37.0-80.0); Nucleated Red Blood Cells % 0.2 %; Platelet Count (auto) 210 10^3/uL (140-450); Red Blood Cells 5.68 10^6/uL (4.5-5.90); Red Cell Distribution Width 13.5 % (11.8-14.3); White Blood Cell 6.6 10^3/uL (4.4-10.8)
[2020-07-26 08:49] LABS: Anion Gap 7 (5-15); Blood Urea Nitrogen 34 mg/dL (7-18); Calcium 9.2 mg/dL (8.5-10.1); Carbon Dioxide 25 mmol/L (21-32); Chloride 105 mmol/L (98-107); Glucose 317 mg/dL (74-106); Potassium 4.3 mmol/L (3.5-5.1); Sodium 137 mmol/L (136-145)
[2020-07-26 08:54] LABS: Cholesterol 196 mg/dL (< 200); GFR African American 35 mL/min; GFR Non-African American 29 mL/min; HDL Cholesterol 35 mg/dL (40-59); Phosphorus 3.6 mg/dL (2.5-4.90); Triglycerides 483 mg/dL (< 150)
[2020-07-26 08:55] LABS: BUN/Creatinine Ratio 14.5
[2020-07-26 09:30] LABS: Urine Bacteria NONE SEEN /hpf (None Seen); Urine Blood Negative /uL (Negative); Urine Specific Gravity 1.024 (1.001-1.035)
[2020-07-26 09:49] LABS: Protein, Urine 16.1 mg/dL (0.0-11.9)
== END | disposition home or self-care (01) ==
LOC: LAB 07:24
PROVIDERS: ATTEND Student in an Organized Health Care Education/Training Program
DX: N18.30 Chronic kidney disease, stage 3 unspecified (principal); D63.1 Anemia in chronic kidney disease; E21.3 Hyperparathyroidism, unspecified; E78.5 Hyperlipidemia, unspecified; M10.9 Gout, unspecified; R80.9 Proteinuria, unspecified; E56.9 Vitamin deficiency, unspecified; E11.22 Type 2 diabetes mellitus with diabetic chronic kidney disease
CPT/HCPCS: 36415; 80048; 80061; 81001; 82306; 82570; 83036; 83970; 84100; 84156; 85025

== ENCOUNTER → 2020-12-13 | Outpatient (CLI) | payer MEDICARE, BC ==
[~2020-12-13] MED LIST changes: -LEVO500T21 PO; +LEVO500T31 PO; +[UNRECOGNIZED DRUG - CODE] PO; -[UNRECOGNIZED DRUG - CODE] PO
[2020-12-13 12:13] LABS: Basophils # (auto) 0 10 ^3/uL (0-0.2); Lymphocytes # (auto) 1.7 10 ^3/uL (0.4-5.4); Monocytes # (auto) 0.7 10 ^3/uL (0-1.3)
[2020-12-13 12:16] LABS: Basophils % (auto) 0.8 % (0.0-2.0); Eosinophils # (auto) 0.2 10 ^3/uL (0-0.8); Eosinophils % (auto) 2.7 % (0.0-7.0); Hematocrit 44.8 % (41.0-53.0); Hemoglobin 15.7 g/dL (13.5-17.5); Lymphocytes % (auto) 29.6 % (10.0-50.0); Mean Corpuscular Hgb Conc. 35.1 g/dL (32.0-36.0); Mean Corpuscular Volume 97.1 fL (80.0-100.0); Monocytes % (auto) 13.2 % (0.0-12.0); Neutrophils % (auto) 53.7 % (37.0-80.0); Nucleated Red Blood Cells % 0.2 %; Platelet Count (auto) 179 10^3/uL (140-450); Red Blood Cells 4.61 10^6/uL (4.5-5.90); Red Cell Distribution Width 13.8 % (11.8-14.3); White Blood Cell 5.6 10^3/uL (4.4-10.8)
[2020-12-13 12:54] LABS: Urine Bacteria NONE SEEN /hpf (None Seen); Urine Blood Negative /uL (Negative); Urine Hyaline Cast FEW /lpf (0 - 2); Urine Specific Gravity 1.006 (1.001-1.035); Urine WBC <1 /hpf (0 - 3)
[2020-12-13 13:02] LABS: Albumin 3.9 g/dL (3.4-5.0); BUN/Creatinine Ratio 16.5; Calcium 9.4 mg/dL (8.5-10.1); Potassium 4.4 mmol/L (3.5-5.1); Uric Acid 7.1 mg/dL (3.5-7.2)
[2020-12-13 13:10] LABS: Protein, Urine 5.6 mg/dL (0.0-11.9)
[2020-12-13 13:20] LABS: Micro Albumin 9.95 mg/L (0-30.0)
== END | disposition home or self-care (01) ==
LOC: LAB 11:43
PROVIDERS: ATTEND Student in an Organized Health Care Education/Training Program
DX: N18.31 Chronic kidney disease, stage 3a (principal); D63.1 Anemia in chronic kidney disease; E21.3 Hyperparathyroidism, unspecified; M10.9 Gout, unspecified; R80.9 Proteinuria, unspecified; R82.90 Unspecified abnormal findings in urine; E56.9 Vitamin deficiency, unspecified
CPT/HCPCS: 36415; 80069; 81001; 82043; 82570; 83970; 84156; 84550; 85025

== ENCOUNTER → 2021-02-04 | Day surgery (SDC) | payer MEDICARE, BC ==
[2021-02-01 09:50] LABS: Basophils # (auto) 0 10 ^3/uL (0-0.2); Basophils % (auto) 0.7 % (0.0-2.0); Eosinophils # (auto) 0.3 10 ^3/uL (0-0.8); Eosinophils % (auto) 4.8 % (0.0-7.0); Hematocrit 46.8 % (41.0-53.0); Lymphocytes # (auto) 1.4 10 ^3/uL (0.4-5.4); Lymphocytes % (auto) 26.3 % (10.0-50.0); Mean Corpuscular Hemoglobin 32.9 pg (28.0-32.0); Mean Corpuscular Hgb Conc. 34.3 g/dL (32.0-36.0); Monocytes # (auto) 0.8 10 ^3/uL (0-1.3); Monocytes % (auto) 15.4 % (0.0-12.0); Neutrophils # (auto) 2.8 10 ^3/uL (1.6-8.6); Neutrophils % (auto) 52.8 % (37.0-80.0); Nucleated Red Blood Cells % 0.1 %; Platelet Count (auto) 172 10^3/uL (140-450); Red Blood Cells 4.87 10^6/uL (4.5-5.90); Red Cell Distribution Width 12.4 % (11.8-14.3); White Blood Cell 5.4 10^3/uL (4.4-10.8)
[2021-02-01 10:09] LABS: INR 1.03 (0.9-1.15); Partial Thromboplastin Time 26.2 sec (23.0-31.2)
[2021-02-01 10:53] LABS: Potassium 4.3 mmol/L (3.5-5.1)
[2021-02-01 11:00] LABS: Albumin 3.8 g/dL (3.4-5.0); BUN/Creatinine Ratio 17.3; Bilirubin, Total 0.9 mg/dL (0.2-1.0); Calcium 9.7 mg/dL (8.5-10.1); Total Protein 7.6 g/dL (6.4-8.2)
[~2021-02-04] VITALS: Ht 172.7 cm; Wt 98.4 kg
[~2021-02-04] MED LIST changes: -CARV25TA55 PO; -CHOL1TAB42 PO; +LIDOCAINE VISCOUS 2% 15ML UD ONE; +SODIUM CHLORIDE LOCK 10 ML ONE; -[UNRECOGNIZED DRUG - CODE] PO; +diphenhdrAMINE HCL 50 MG/1 ML VL ONE; +fentaNYL CITRATE 100 MCG/2 ML VL ONE
[2021-02-04] MEDS: MIDAZOLAM HCL 5 MG/ML-1ML VIAL ONE ×2 (15:17→15:20)
[2021-02-04 16:20] VITALS: BP 122/64
== END | disposition home or self-care (01) ==
LOC: GI 12:26
PROVIDERS: ATTEND Internal Medicine Gastroenterology
DX: R10.13 Epigastric pain (principal); K29.50 Unspecified chronic gastritis without bleeding; K31.89 Other diseases of stomach and duodenum; I25.810 Atherosclerosis of coronary artery bypass graft(s) without angina pectoris; G47.30 Sleep apnea, unspecified; E11.9 Type 2 diabetes mellitus without complications; I50.9 Heart failure, unspecified; E66.9 Obesity, unspecified; E11.40 Type 2 diabetes mellitus with diabetic neuropathy, unspecified; J44.9 Chronic obstructive pulmonary disease, unspecified; Z79.82 Long term (current) use of aspirin; Z08 Encounter for follow-up examination after completed treatment for malignant neoplasm; Z85.028 Personal history of other malignant neoplasm of stomach; Z79.899 Other long term (current) drug therapy; Z20.822 Contact with and (suspected) exposure to COVID-19
CPT/HCPCS: 36415; 43239; 80053; 82962; 85025; 85610; 85730; 88305; 88312; 88342; J1200; J2250; J3010; J7030; U0003; G0500

== ENCOUNTER → 2021-02-18 | Outpatient (CLI) | payer MEDICARE, BC ==
[~2021-02-18] MED LIST changes: -LIDOCAINE VISCOUS 2% 15ML UD ONE; -SODIUM CHLORIDE LOCK 10 ML ONE; -diphenhdrAMINE HCL 50 MG/1 ML VL ONE; -fentaNYL CITRATE 100 MCG/2 ML VL ONE
== END | disposition home or self-care (01) ==
LOC: XYW 08:05
PROVIDERS: ATTEND Internal Medicine
DX: I07.1 Rheumatic tricuspid insufficiency (principal); I10 Essential (primary) hypertension
CPT/HCPCS: 93306

== ENCOUNTER 2021-03-16 13:49 | Day surgery (SDC) | payer MEDICARE, BC ==
[2021-03-11 12:11] LABS: Basophils # (auto) 0.1 10 ^3/uL (0-0.2); Basophils % (auto) 0.9 % (0.0-2.0); Eosinophils # (auto) 0.3 10 ^3/uL (0-0.8); Eosinophils % (auto) 4.7 % (0.0-7.0); Hematocrit 47.5 % (41.0-53.0); Hemoglobin 16.7 g/dL (13.5-17.5); Lymphocytes # (auto) 1.7 10 ^3/uL (0.4-5.4); Lymphocytes % (auto) 30.7 % (10.0-50.0); Mean Corpuscular Hemoglobin 32.6 pg (28.0-32.0); Mean Corpuscular Hgb Conc. 35.1 g/dL (32.0-36.0); Monocytes # (auto) 0.7 10 ^3/uL (0-1.3); Monocytes % (auto) 12.7 % (0.0-12.0); Neutrophils # (auto) 2.8 10 ^3/uL (1.6-8.6); Nucleated Red Blood Cells % 0.1 %; Platelet Count (auto) 161 10^3/uL (140-450); Red Blood Cells 5.11 10^6/uL (4.5-5.90); Red Cell Distribution Width 12.2 % (11.8-14.3); White Blood Cell 5.5 10^3/uL (4.4-10.8)
[2021-03-11 12:31] LABS: Albumin 3.9 g/dL (3.4-5.0); Calcium 9.3 mg/dL (8.5-10.1); Potassium 4.1 mmol/L (3.5-5.1)
[2021-03-11 12:34] LABS: BUN/Creatinine Ratio 12.8; Bilirubin, Total 1.3 mg/dL (0.2-1.0); Total Protein 7.7 g/dL (6.4-8.2)
[~2021-03-16] VITALS: Ht 172.7 cm; Wt 97.1 kg
[~2021-03-16 13:49] MED LIST changes: -FURO1TAB31 PO; -INSLANTI SC; -INSLISPI SC
[2021-03-16] MEDS ORDERED: SODIUM CHLORIDE LOCK 10 ML ONE (15:20)
[2021-03-16] MEDS: MIDAZOLAM HCL 5 MG/ML-1ML VIAL ONE ×3 (15:24→15:33)
[2021-03-16] MEDS: fentaNYL CITRATE 100 MCG/2 ML VL ONE ×3 (15:24→15:33)
[2021-03-16] MEDS: diphenhdrAMINE HCL 50 MG/1 ML VL ONE ×2 (15:24→15:30)
[2021-03-16 16:20] VITALS: BP 108/68
== END 2021-03-16 16:49 | disposition home or self-care (01) ==
LOC: GI 13:49
PROVIDERS: ATTEND Internal Medicine Gastroenterology
DX: Z12.11 Encounter for screening for malignant neoplasm of colon (principal); D12.2 Benign neoplasm of ascending colon; K63.89 Other specified diseases of intestine; K57.30 Diverticulosis of large intestine without perforation or abscess without bleeding; K64.8 Other hemorrhoids; J45.909 Unspecified asthma, uncomplicated; I25.810 Atherosclerosis of coronary artery bypass graft(s) without angina pectoris; G47.30 Sleep apnea, unspecified; Z95.1 Presence of aortocoronary bypass graft; Z98.890 Other specified postprocedural states; Z20.822 Contact with and (suspected) exposure to COVID-19; Z79.899 Other long term (current) drug therapy; Z68.32 Body mass index [BMI] 32.0-32.9, adult; Z85.01 Personal history of malignant neoplasm of esophagus
CPT/HCPCS: 36415; 45380; 45385; 80053; 82962; 85025; 85049; J1200; J2250; J3010; J7030; U0003; G0500

== ENCOUNTER → 2021-03-22 | Outpatient (CLI) | payer MEDICARE, BC ==
[2021-03-22 09:18] LABS: Basophils # (auto) 0 10 ^3/uL (0-0.2); Basophils % (auto) 0.9 % (0.0-2.0); Eosinophils # (auto) 0.2 10 ^3/uL (0-0.8); Hematocrit 47.6 % (41.0-53.0); Hemoglobin 16.6 g/dL (13.5-17.5); Lymphocytes # (auto) 1.4 10 ^3/uL (0.4-5.4); Lymphocytes % (auto) 29.2 % (10.0-50.0); Mean Corpuscular Hemoglobin 32.3 pg (28.0-32.0); Mean Corpuscular Hgb Conc. 34.9 g/dL (32.0-36.0); Mean Corpuscular Volume 92.5 fL (80.0-100.0); Monocytes # (auto) 0.6 10 ^3/uL (0-1.3); Monocytes % (auto) 13.2 % (0.0-12.0); Neutrophils # (auto) 2.5 10 ^3/uL (1.6-8.6); Neutrophils % (auto) 52.7 % (37.0-80.0); Nucleated Red Blood Cells % 0.1 %; Platelet Count (auto) 158 10^3/uL (140-450); Red Blood Cells 5.14 10^6/uL (4.5-5.90); Red Cell Distribution Width 11.9 % (11.8-14.3); White Blood Cell 4.7 10^3/uL (4.4-10.8)
[2021-03-22 09:47] LABS: Potassium 4.1 mmol/L (3.5-5.1)
[2021-03-22 09:56] LABS: Albumin 3.8 g/dL (3.4-5.0); BUN/Creatinine Ratio 11.3; Bilirubin, Total 0.9 mg/dL (0.2-1.0); Calcium 9.2 mg/dL (8.5-10.1); Total Protein 7.4 g/dL (6.4-8.2)
== END | disposition home or self-care (01) ==
LOC: LAB 08:26
PROVIDERS: ATTEND Nurse Practitioner Family
DX: E11.42 Type 2 diabetes mellitus with diabetic polyneuropathy (principal); I10 Essential (primary) hypertension
CPT/HCPCS: 36415; 80053; 80061; 83036; 85025; 85049

== ENCOUNTER → 2021-05-12 | Outpatient (CLI) | payer MEDICARE, BC ==
[2021-05-12 10:48] LABS: Basophils # (auto) 0.1 10 ^3/uL (0-0.2); Basophils % (auto) 1.1 % (0.0-2.0); Eosinophils # (auto) 0.2 10 ^3/uL (0-0.8); Eosinophils % (auto) 3.5 % (0.0-7.0); Hematocrit 48.4 % (41.0-53.0); Hemoglobin 16.8 g/dL (13.5-17.5); Lymphocytes # (auto) 1.7 10 ^3/uL (0.4-5.4); Lymphocytes % (auto) 34.6 % (10.0-50.0); Mean Corpuscular Hemoglobin 31.8 pg (28.0-32.0); Mean Corpuscular Hgb Conc. 34.7 g/dL (32.0-36.0); Mean Corpuscular Volume 91.5 fL (80.0-100.0); Monocytes # (auto) 0.6 10 ^3/uL (0-1.3); Neutrophils # (auto) 2.5 10 ^3/uL (1.6-8.6); Neutrophils % (auto) 49.8 % (37.0-80.0); Nucleated Red Blood Cells % 0.1 %; Red Blood Cells 5.29 10^6/uL (4.5-5.90); Red Cell Distribution Width 12.8 % (11.8-14.3)
[2021-05-12 11:14] LABS: Calcium 9.3 mg/dL (8.5-10.1); Potassium 4.2 mmol/L (3.5-5.1)
[2021-05-12 11:29] LABS: Albumin 3.7 g/dL (3.4-5.0); BUN/Creatinine Ratio 15.3; Bilirubin, Total 1.3 mg/dL (0.2-1.0); Total Protein 7.8 g/dL (6.4-8.2)
== END | disposition home or self-care (01) ==
LOC: LAB 10:27
PROVIDERS: ATTEND Internal Medicine
DX: C15.9 Malignant neoplasm of esophagus, unspecified (principal); C15.5 Malignant neoplasm of lower third of esophagus
CPT/HCPCS: 36415; 80053; 82378; 83615; 85025; 86301

== ENCOUNTER → 2022-07-25 | Outpatient (CLI) | payer MEDICARE, BC ==
[2022-07-25 09:14] LABS: Basophils # (auto) 0.1 10 ^3/uL (0-0.2); Basophils % (auto) 0.8 % (0.0-2.0); Eosinophils # (auto) 0.3 10 ^3/uL (0-0.8); Hemoglobin 18.7 g/dL (13.5-17.5); Nucleated Red Blood Cells % 0.1 %
[2022-07-25 09:17] LABS: Eosinophils % (auto) 4.5 % (0.0-7.0); Hematocrit 54.1 % (41.0-53.0); Lymphocytes # (auto) 2.2 10 ^3/uL (0.4-5.4); Mean Corpuscular Hemoglobin 31.8 pg (28.0-32.0); Mean Corpuscular Hgb Conc. 34.5 g/dL (32.0-36.0); Mean Corpuscular Volume 92.2 fL (80.0-100.0); Monocytes % (auto) 13.7 % (0.0-12.0); Neutrophils # (auto) 3.5 10 ^3/uL (1.6-8.6); Red Blood Cells 5.86 10^6/uL (4.5-5.90)
[2022-07-25 10:10] LABS: Albumin 3.7 g/dL (3.4-5.0); BUN/Creatinine Ratio 14.6; Bilirubin, Total 1.9 mg/dL (0.2-1.0); Calcium 9.8 mg/dL (8.5-10.1); Potassium 3.9 mmol/L (3.5-5.1); Total Protein 7.8 g/dL (6.4-8.2)
== END | disposition home or self-care (01) ==
LOC: LAB 08:16
PROVIDERS: ATTEND Nurse Practitioner Family
DX: E11.22 Type 2 diabetes mellitus with diabetic chronic kidney disease (principal); I12.9 Hypertensive chronic kidney disease with stage 1 through stage 4 chronic kidney disease, or unspecified chronic kidney disease; E11.40 Type 2 diabetes mellitus with diabetic neuropathy, unspecified; N18.9 Chronic kidney disease, unspecified
CPT/HCPCS: 36415; 80053; 80061; 83036; 84443; 85025

== ENCOUNTER → 2022-08-04 | Outpatient (CLI) | payer MEDICARE, BC | END | disposition home or self-care (01) | LOC: LAB 12:07 | PROVIDERS: ATTEND Nurse Practitioner Family | DX: R53.83 Other fatigue (principal); N52.9 Male erectile dysfunction, unspecified | CPT/HCPCS: 36415; 84403 ==

== ENCOUNTER → 2022-08-29 | Outpatient (CLI) | payer MEDICARE, BC | END | disposition home or self-care (01) | LOC: XYW 08:34 | PROVIDERS: ATTEND Internal Medicine | DX: I07.1 Rheumatic tricuspid insufficiency (principal); I25.5 Ischemic cardiomyopathy | CPT/HCPCS: 93306 ==

== ENCOUNTER → 2022-10-23 | Outpatient (CLI) | payer MEDICARE, BC ==
[2022-10-23 09:42] LABS: Basophils # (auto) 0 10 ^3/uL (0-0.2); Basophils % (auto) 0.9 % (0.0-2.0); Eosinophils # (auto) 0.1 10 ^3/uL (0-0.8); Eosinophils % (auto) 2.8 % (0.0-7.0); Hematocrit 49.9 % (41.0-53.0); Hemoglobin 16.8 g/dL (13.5-17.5); Lymphocytes # (auto) 1.6 10 ^3/uL (0.4-5.4); Lymphocytes % (auto) 31.7 % (10.0-50.0); Mean Corpuscular Hemoglobin 31.9 pg (28.0-32.0); Mean Corpuscular Hgb Conc. 33.7 g/dL (32.0-36.0); Mean Corpuscular Volume 94.6 fL (80.0-100.0); Monocytes # (auto) 0.5 10 ^3/uL (0-1.3); Monocytes % (auto) 10.4 % (0.0-12.0); Neutrophils # (auto) 2.7 10 ^3/uL (1.6-8.6); Neutrophils % (auto) 54.2 % (37.0-80.0); Nucleated Red Blood Cells % 0.1 %; Red Blood Cells 5.27 10^6/uL (4.5-5.90); Red Cell Distribution Width 13.2 % (11.8-14.3); White Blood Cell 4.9 10^3/uL (4.4-10.8)
[2022-10-23 10:30] LABS: Albumin 3.6 g/dL (3.4-5.0); Calcium 9.1 mg/dL (8.5-10.1); Magnesium 2.6 mg/dL (1.6-2.6); Potassium 4.1 mmol/L (3.5-5.1)
[2022-10-23 10:34] LABS: BUN/Creatinine Ratio 16.4; Bilirubin, Total 1.3 mg/dL (0.2-1.0); Total Protein 6.9 g/dL (6.4-8.2)
[2022-10-23 14:17] LABS: Carcinoembryonic Antigen 2.11 ng/mL (<5.0 OR =); Ferritin 143.8 ng/mL (10-322)
== END | disposition home or self-care (01) ==
LOC: LAB 09:20
PROVIDERS: ATTEND Internal Medicine
DX: C15.5 Malignant neoplasm of lower third of esophagus (principal); C15.9 Malignant neoplasm of esophagus, unspecified
CPT/HCPCS: 36415; 80053; 82306; 82378; 82728; 83540; 83615; 83735; 85025; 86301

== ENCOUNTER 2022-10-25 18:28 | Inpatient (IN) | payer MEDICARE, BC ==
[~2022-10-25] VITALS: Ht 170.2 cm; Wt 92.9 kg
[2022-10-25 23:59] LABS: Basophils # (auto) 0 10 ^3/uL (0-0.2); Basophils % (auto) 0.6 % (0.0-2.0); Eosinophils # (auto) 0 10 ^3/uL (0-0.8); Eosinophils % (auto) 0.5 % (0.0-7.0); Hematocrit 47.7 % (41.0-53.0); Hemoglobin 16.2 g/dL (13.5-17.5); Lymphocytes # (auto) 1.2 10 ^3/uL (0.4-5.4); Lymphocytes % (auto) 19.2 % (10.0-50.0); Mean Corpuscular Hemoglobin 31.9 pg (28.0-32.0); Mean Corpuscular Volume 93.7 fL (80.0-100.0); Monocytes # (auto) 0.9 10 ^3/uL (0-1.3); Monocytes % (auto) 15.3 % (0.0-12.0); Neutrophils # (auto) 3.9 10 ^3/uL (1.6-8.6); Neutrophils % (auto) 64.4 % (37.0-80.0); Nucleated Red Blood Cells % 0.1 %; Red Blood Cells 5.09 10^6/uL (4.5-5.90); Red Cell Distribution Width 13.5 % (11.8-14.3); White Blood Cell 6.1 10^3/uL (4.4-10.8)
[2022-10-26 00:16] LABS: Albumin 3.1 g/dL (3.4-5.0); BUN/Creatinine Ratio 14.7; Calcium 9.2 mg/dL (8.5-10.1)
[2022-10-26 00:18] LABS: Urine Bacteria FEW /hpf (None Seen); Urine Blood TRACE /uL (Negative); Urine Hyaline Cast FEW /lpf (0 - 2); Urine Mucus FEW (None Seen); Urine Specific Gravity 1.016 (1.001-1.035); Urine WBC 1 /hpf (0 - 3)
[2022-10-26 00:19] LABS: Total Protein 6.8 g/dL (6.4-8.2)
[2022-10-26] MEDS ORDERED: DEXTROSE (50%) 50ML SYRG IV PRN (08:45)
[2022-10-26] MEDS: CARVEDILOL 3.125 MG TAB PO SCH ×2 (10:08→21:57)
[2022-10-26] MEDS: ASPirin 81 mg TAB PO SCH (10:09)
[2022-10-26] MEDS: ENOXAPARIN SOD 40 MG/0.4 ML SYRINGE SC SCH (10:09)
[2022-10-26] MEDS: ACCU-CHEK COMFORT CURVE STRIP VI SCH ×3 (11:51→23:20)
[2022-10-26] MEDS: InsuLIN REG 1unit/0.01ml Soln (100units/ml) SC SCH ×3 (11:54→23:29)
[2022-10-26] MEDS: ACETAMINOPHEN 325 MG TAB PO PRN (15:11)
[2022-10-26] MEDS: ATORVASTATIN 20 MG TAB PO SCH (21:55)
[2022-10-26 22:45] VITALS: BP 160/89
[2022-10-27] VITALS (7 sets, daily range): BP systolic 124–143; BP diastolic 60–80
[2022-10-27] MEDS: ACCU-CHEK COMFORT CURVE STRIP VI SCH ×4 (06:02→23:58)
[2022-10-27] MEDS: InsuLIN REG 1unit/0.01ml Soln (100units/ml) SC SCH ×2 (06:06→12:05)
[2022-10-27 06:26] LABS: Hematocrit 45.1 % (41.0-53.0); Hemoglobin 15.7 g/dL (13.5-17.5); Mean Corpuscular Hemoglobin 32.4 pg (28.0-32.0); Mean Corpuscular Hgb Conc. 34.9 g/dL (32.0-36.0); Red Blood Cells 4.85 10^6/uL (4.5-5.90); Red Cell Distribution Width 13.2 % (11.8-14.3); White Blood Cell 4.2 10^3/uL (4.4-10.8)
[2022-10-27 06:46] LABS: BUN/Creatinine Ratio 16.5
[2022-10-27 06:56] LABS: Basophils % (manual) 0 (0.0-2.0); Blast Cells 0; Metamyelocytes % 0; Myelocytes % 0; Promyelocytes % 0; Reactive Lymphocytes 0
[2022-10-27] MEDS: ASPirin 81 mg TAB PO SCH (10:12)
[2022-10-27] MEDS: ENOXAPARIN SOD 40 MG/0.4 ML SYRINGE SC SCH (10:13)
[2022-10-27] MEDS: CARVEDILOL 3.125 MG TAB PO SCH ×2 (10:13→21:52)
[2022-10-27 10:41] LABS: Band Neutrophils % (manual) 13; Eosinophils % (manual) 1 (0-7); Lymphocytes % (manual) 26 (10.0-50.0); Monocytes % (manual) 21 (0-12)
[2022-10-27] MEDS ORDERED: InsuLIN REG 1unit/0.01ml Soln (100units/ml) SC SCH (18:00)
[2022-10-27] MEDS ORDERED: LORazepam 2MG/ML-1ML VIAL IV PRN (19:15)
[2022-10-27] MEDS ORDERED: DEXTROSE (50%) 50ML SYRG IV PRN (19:45)
[2022-10-27] MEDS: ATORVASTATIN 20 MG TAB PO SCH (21:45)
[2022-10-28 05:00] VITALS: BP 136/67
[2022-10-28] MEDS: ACCU-CHEK COMFORT CURVE STRIP VI SCH ×3 (06:08→17:41)
[2022-10-28] MEDS: InsuLIN REG 1unit/0.01ml Soln (100units/ml) SC SCH ×4 (06:09→17:44)
[2022-10-28 09:00] VITALS: BP 137/73
[2022-10-28] MEDS: ASPirin 81 mg TAB PO SCH (09:37)
[2022-10-28] MEDS: ENOXAPARIN SOD 40 MG/0.4 ML SYRINGE SC SCH (09:37)
[2022-10-28] MEDS: CARVEDILOL 3.125 MG TAB PO SCH ×2 (09:38→22:46)
[2022-10-28] MEDS: glipiZIDE 5 MG TAB PO SCH (09:39)
[2022-10-28] MEDS: ACETAMINOPHEN 325 MG TAB PO PRN ×2 (13:01→22:50)
[2022-10-28 17:00] VITALS: BP 154/88
[2022-10-28 22:00] VITALS: BP 156/72
[2022-10-28] MEDS: ATORVASTATIN 20 MG TAB PO SCH (22:46)
[2022-10-29] MEDS: ACCU-CHEK COMFORT CURVE STRIP VI SCH ×3 (00:10→12:22)
[2022-10-29] MEDS: InsuLIN REG 1unit/0.01ml Soln (100units/ml) SC SCH ×3 (00:11→12:25)
[2022-10-29 05:00] VITALS: BP 151/73
[2022-10-29 09:00] VITALS: BP 145/70
[2022-10-29] MEDS: ASPirin 81 mg TAB PO SCH (10:10)
[2022-10-29] MEDS: glipiZIDE 5 MG TAB PO SCH (10:17)
[2022-10-29] MEDS: CARVEDILOL 3.125 MG TAB PO SCH (10:19)
[2022-10-29] MEDS: ENOXAPARIN SOD 40 MG/0.4 ML SYRINGE SC SCH (10:19)
[2022-10-29 17:00] VITALS: BP 159/85
[2022-10-29] MEDS ORDERED: LINA5TAB PO (17:29)
[2022-10-29 18:29] VITALS: BP 155/79
== END 2022-10-29 19:31 | disposition home or self-care (01) | DRG 315 ==
LOC: EDBD 18:28 → ER 18:28 → EDUNIT# 18:28 → TELE 10-26 08:50 → TELE-WESTW 10-26 22:43
PROVIDERS: ADMIT Hospitalist; ATTEND Internal Medicine
DX: I95.9 Hypotension, unspecified (principal); I42.9 Cardiomyopathy, unspecified; N17.9 Acute kidney failure, unspecified; I50.32 Chronic diastolic (congestive) heart failure; E11.40 Type 2 diabetes mellitus with diabetic neuropathy, unspecified; E78.5 Hyperlipidemia, unspecified; I11.0 Hypertensive heart disease with heart failure; I25.10 Atherosclerotic heart disease of native coronary artery without angina pectoris; I25.2 Old myocardial infarction; Z20.822 Contact with and (suspected) exposure to COVID-19; Z80.1 Family history of malignant neoplasm of trachea, bronchus and lung; Z80.3 Family history of malignant neoplasm of breast; Z80.42 Family history of malignant neoplasm of prostate; Z80.8 Family history of malignant neoplasm of other organs or systems; Z81.8 Family history of other mental and behavioral disorders; Z82.0 Family history of epilepsy and other diseases of the nervous system; Z82.49 Family history of ischemic heart disease and other diseases of the circulatory system; Z82.3 Family history of stroke; Z82.5 Family history of asthma and other chronic lower respiratory diseases; Z82.62 Family history of osteoporosis; Z83.3 Family history of diabetes mellitus; Z86.73 Personal history of transient ischemic attack (TIA), and cerebral infarction without residual deficits; Z95.1 Presence of aortocoronary bypass graft
CPT/HCPCS: 36415; 70450; 70551; 71045; 72125; 80048; 80053; 81001; 82306; 82378; 82728; 82962; 83540; 83615; 83690; 83735; 83880; 84484; 85007; 85025; 85027; 86301; 87426; 93005; 95819; 96372; 97163; G0378; J1815

== ENCOUNTER 2022-12-13 13:07 | Day surgery (SDC) | payer MEDICARE, BC ==
[2022-12-12 12:32] LABS: Basophils # (auto) 0.1 10 ^3/uL (0-0.2); Basophils % (auto) 0.7 % (0.0-2.0); Eosinophils # (auto) 0.2 10 ^3/uL (0-0.8); Eosinophils % (auto) 2.4 % (0.0-7.0); Hematocrit 48.6 % (41.0-53.0); Hemoglobin 16.5 g/dL (13.5-17.5); Lymphocytes # (auto) 2.4 10 ^3/uL (0.4-5.4); Lymphocytes % (auto) 31.1 % (10.0-50.0); Mean Corpuscular Hemoglobin 31.8 pg (28.0-32.0); Mean Corpuscular Volume 93.5 fL (80.0-100.0); Monocytes # (auto) 0.9 10 ^3/uL (0-1.3); Monocytes % (auto) 11.5 % (0.0-12.0); Neutrophils # (auto) 4.2 10 ^3/uL (1.6-8.6); Neutrophils % (auto) 54.3 % (37.0-80.0); Nucleated Red Blood Cells % 0.1 %; Red Cell Distribution Width 13.3 % (11.8-14.3); White Blood Cell 7.8 10^3/uL (4.4-10.8)
[2022-12-12 13:02] LABS: Albumin 3.6 g/dL (3.4-5.0); Calcium 9.7 mg/dL (8.5-10.1); Potassium 4.4 mmol/L (3.5-5.1)
[2022-12-12 13:06] LABS: BUN/Creatinine Ratio 16.5 (10.0-20.0); Bilirubin, Total 1.2 mg/dL (0.2-1.0); Total Protein 7.4 g/dL (6.4-8.2)
[2022-12-12 13:09] LABS: INR 1.02 (0.9-1.15); Partial Thromboplastin Time 25.9 sec (24.6-33.4)
[~2022-12-13] VITALS: Ht 203.2 cm; Wt 97.1 kg
[~2022-12-13 13:07] MED LIST changes: +ASPI-543 PO; -CANA300T PO; +INSLANTI SC; +INSLISPI SC; -LEVO500T31 PO; -METR500T PO; +SITA50TA PO; -SUCR1TAB22 PO
[2022-12-13] MEDS ORDERED: LIDOCAINE 2% JELLY 11ml (GLYDO) ONE (13:28)
[2022-12-13] MEDS ORDERED: MIDAZOLAM HCL 2MG/2ML 2ml VIAL (1mg/ml) ONE (13:28)
[2022-12-13] MEDS ORDERED: fentaNYL CITRATE 100 MCG/2 ML VL ONE (13:29)
[2022-12-13] MEDS: diphenhdrAMINE HCL 50 MG/1 ML VL ONE ×2 (13:59→14:01)
[2022-12-13 14:55] VITALS: BP 113/68
[2022-12-13] MEDS ORDERED: LIDOCAINE VISCOUS 2% 15ML UD ONE (18:48)
== END 2022-12-13 15:07 | disposition home or self-care (01) ==
LOC: GI 13:07
PROVIDERS: ATTEND Internal Medicine Gastroenterology
DX: C15.9 Malignant neoplasm of esophagus, unspecified (principal); K21.9 Gastro-esophageal reflux disease without esophagitis; E11.22 Type 2 diabetes mellitus with diabetic chronic kidney disease; I12.9 Hypertensive chronic kidney disease with stage 1 through stage 4 chronic kidney disease, or unspecified chronic kidney disease; N18.30 Chronic kidney disease, stage 3 unspecified; Z79.899 Other long term (current) drug therapy; Z79.84 Long term (current) use of oral hypoglycemic drugs; Z98.890 Other specified postprocedural states; Z20.822 Contact with and (suspected) exposure to COVID-19
CPT/HCPCS: 36415; 43239; 80053; 82962; 85025; 85610; 85730; J1200; J2250; J3010; J7030; U0003

== ENCOUNTER → 2023-01-23 | Outpatient (CLI) | payer MEDICARE, BC ==
[~2023-01-23] MED LIST changes: +FURO40TA4 PO; +LEVO500T31 PO; +METR500T PO
[2023-01-23 11:12] LABS: Basophils # (auto) 0.1 10 ^3/uL (0-0.2); Basophils % (auto) 0.5 % (0.0-2.0); Eosinophils # (auto) 0 10 ^3/uL (0-0.8); Eosinophils % (auto) 0.1 % (0.0-7.0); Hematocrit 45.9 % (41.0-53.0); Hemoglobin 15.3 g/dL (13.5-17.5); Lymphocytes # (auto) 1.6 10 ^3/uL (0.4-5.4); Mean Corpuscular Hemoglobin 31.8 pg (28.0-32.0); Mean Corpuscular Hgb Conc. 33.4 g/dL (32.0-36.0); Monocytes # (auto) 0.9 10 ^3/uL (0-1.3); Monocytes % (auto) 5.6 % (0.0-12.0); Neutrophils % (auto) 83.8 % (37.0-80.0); Red Blood Cells 4.83 10^6/uL (4.5-5.90); Red Cell Distribution Width 12.7 % (11.8-14.3); White Blood Cell 15.5 10^3/uL (4.4-10.8)
[2023-01-23 11:38] LABS: Albumin 2.8 g/dL (3.4-5.0); BUN/Creatinine Ratio 22.1 (10.0-20.0); Calcium 9.1 mg/dL (8.5-10.1); Potassium 4.4 mmol/L (3.5-5.1)
[2023-01-23 11:49] LABS: Bilirubin, Total 1.4 mg/dL (0.2-1.0); Magnesium 2.6 mg/dL (1.6-2.6); Total Protein 6.8 g/dL (6.4-8.2)
[2023-01-23 13:20] LABS: Ferritin 216.5 ng/mL (10-322)
[2023-01-23 13:21] LABS: Carcinoembryonic Antigen 1.7 ng/mL (<5.0 OR =)
== END | disposition home or self-care (01) ==
LOC: LAB 10:45
PROVIDERS: ATTEND Internal Medicine
DX: C15.5 Malignant neoplasm of lower third of esophagus (principal); C15.9 Malignant neoplasm of esophagus, unspecified; C78.80 Secondary malignant neoplasm of unspecified digestive organ; E55.9 Vitamin D deficiency, unspecified; Z79.899 Other long term (current) drug therapy; Z79.630 Long term (current) use of alkylating agent
CPT/HCPCS: 36415; 80053; 82306; 82378; 82728; 83540; 83615; 83735; 85025; 86301

== ENCOUNTER 2023-02-04 21:05 | Inpatient (IN) | payer MEDICARE, BC ==
[~2023-02-04] VITALS: Ht 177.8 cm; Wt 92.1 kg
[~2023-02-04 21:05] MED LIST changes: -FURO40TA4 PO; -LEVO500T31 PO; -METR500T PO
[2023-02-04 22:17] LABS: Basophils # (auto) 0.1 10 ^3/uL (0-0.2); Basophils % (auto) 0.7 % (0.0-2.0); Eosinophils # (auto) 0.1 10 ^3/uL (0-0.8); Eosinophils % (auto) 0.5 % (0.0-7.0); Hematocrit 48.2 % (41.0-53.0); Hemoglobin 16.3 g/dL (13.5-17.5); Lymphocytes # (auto) 1.3 10 ^3/uL (0.4-5.4); Mean Corpuscular Hgb Conc. 33.7 g/dL (32.0-36.0); Mean Corpuscular Volume 94.9 fL (80.0-100.0); Monocytes # (auto) 1.6 10 ^3/uL (0-1.3); Monocytes % (auto) 12.3 % (0.0-12.0); Neutrophils # (auto) 9.7 10 ^3/uL (1.6-8.6); Neutrophils % (auto) 76.5 % (37.0-80.0); Nucleated Red Blood Cells % 0.1 %; Red Blood Cells 5.08 10^6/uL (4.5-5.90); Red Cell Distribution Width 12.5 % (11.8-14.3); White Blood Cell 12.7 10^3/uL (4.4-10.8)
[2023-02-04 22:30] LABS: Albumin 2.5 g/dL (3.4-5.0); Calcium 9.4 mg/dL (8.5-10.1); Magnesium 2.1 mg/dL (1.6-2.6)
[2023-02-04 22:34] LABS: Bilirubin, Total 1.4 mg/dL (0.2-1.0); Total Protein 7.3 g/dL (6.4-8.2)
[2023-02-04] MEDS ORDERED: LACTATED RINGER'S 1,000 ML IV ONE (22:45)
[2023-02-04] MEDS ORDERED: cefTRIAXone 1GM/50ML D5W 50 ML IV ONE (22:45)
[2023-02-04] MEDS ORDERED: AZITHROMYCIN 500MG/ 250ML 250 ML IV ONE (22:45)
[2023-02-04 23:00] LABS: INR 1.11 (0.9-1.15); Partial Thromboplastin Time 27.6 sec (24.6-33.4)
[2023-02-05] MEDS ORDERED: metroNIDAZOLE 500MG/100ML 100 ML IV ONE (00:30)
[2023-02-05] MEDS ORDERED: SODIUM CHLORIDE 0.9% 3,600 ML IV ONE (00:30)
[2023-02-05] MEDS ORDERED: SODIUM CHLORIDE 0.9% 1,000 ML IV SCH (02:15)
[2023-02-05] MEDS ORDERED: DEXTROSE (50%) 50ML SYRG IV PRN (02:15)
[2023-02-05] MEDS ORDERED: MORPHINE SULFATE INJ 2 MG/ml SYRG IV PRN (02:15)
[2023-02-05] MEDS ORDERED: ONDANSETRON HCL 4 MG/2 ML VIAL IV PRN (02:15)
[2023-02-05] MEDS ORDERED: metroNIDAZOLE 500MG/100ML 100 ML IV SCH (06:00)
[2023-02-05] MEDS: ACCU-CHEK COMFORT CURVE STRIP VI SCH ×3 (06:25→22:56)
[2023-02-05] MEDS: InsuLIN REG 1unit/0.01ml Soln (100units/ml) SC SCH ×3 (06:29→23:03)
[2023-02-05] MEDS ORDERED: cefTRIAXone 1GM/50ML D5W 50 ML IV SCH (09:00)
[2023-02-05] MEDS: PANTOPRAZOLE 40 MG/10 ML VIAL INJ IV SCH (10:18)
[2023-02-05] MEDS: LACTATED RINGER'S 1,000 ML IV SCH ×2 (13:36→22:34)
[2023-02-05] MEDS: MEROPENEM 1GM IVPB 100 ML IV SCH ×2 (13:56→22:38)
[2023-02-05 21:04] VITALS: BP 151/82
[2023-02-05 22:00] VITALS: BP 151/82
[2023-02-05 22:54] LABS: Urine Bacteria NONE SEEN /hpf (None Seen); Urine Blood Negative /uL (Negative); Urine Specific Gravity 1.015 (1.001-1.035); Urine WBC <1 /hpf (0 - 3)
[2023-02-06] VITALS (13 sets, daily range): BP systolic 126–172; BP diastolic 64–83
[2023-02-06 05:19] LABS: Basophils # (auto) 0 10 ^3/uL (0-0.2); Basophils % (auto) 0.1 % (0.0-2.0); Eosinophils # (auto) 0.1 10 ^3/uL (0-0.8); Eosinophils % (auto) 1.2 % (0.0-7.0); Hematocrit 41.8 % (41.0-53.0); Hemoglobin 14.1 g/dL (13.5-17.5); Lymphocytes % (auto) 12.5 % (10.0-50.0); Mean Corpuscular Hemoglobin 31.8 pg (28.0-32.0); Mean Corpuscular Hgb Conc. 33.6 g/dL (32.0-36.0); Mean Corpuscular Volume 94.6 fL (80.0-100.0); Monocytes # (auto) 1.1 10 ^3/uL (0-1.3); Monocytes % (auto) 13.8 % (0.0-12.0); Neutrophils # (auto) 5.8 10 ^3/uL (1.6-8.6); Neutrophils % (auto) 72.4 % (37.0-80.0); Red Blood Cells 4.42 10^6/uL (4.5-5.90); Red Cell Distribution Width 12.3 % (11.8-14.3)
[2023-02-06 05:31] LABS: Albumin 2.1 g/dL (3.4-5.0); Calcium 9.1 mg/dL (8.5-10.1); Potassium 4.2 mmol/L (3.5-5.1)
[2023-02-06 05:36] LABS: BUN/Creatinine Ratio 23.1 (10.0-20.0); Bilirubin, Total 1.2 mg/dL (0.2-1.0); Total Protein 5.8 g/dL (6.4-8.2)
[2023-02-06] MEDS: ACCU-CHEK COMFORT CURVE STRIP VI SCH ×5 (06:18→21:56)
[2023-02-06] MEDS: InsuLIN REG 1unit/0.01ml Soln (100units/ml) SC SCH ×5 (06:27→21:56)
[2023-02-06] MEDS: MEROPENEM 1GM IVPB 100 ML IV SCH ×3 (06:39→21:53)
[2023-02-06] MEDS: LACTATED RINGER'S 1,000 ML IV SCH ×2 (08:45→18:08)
[2023-02-06] MEDS: PANTOPRAZOLE 40 MG/10 ML VIAL INJ IV SCH (09:41)
[2023-02-06] MEDS ORDERED: ONDANSETRON HCL 4 MG/2 ML VIAL IV PRN (11:15)
[2023-02-06] MEDS ORDERED: LABETALOL HCL 5 MG/ML 4ML SYRINGE IV PRN (11:15)
[2023-02-06] MEDS ORDERED: MORPHINE SULFATE INJ 2 MG/ml SYRG IV PRN (11:15)
[2023-02-06] MEDS ORDERED: MIDAZOLAM HCL 2MG/2ML 2ml VIAL (1mg/ml) IV ONE (12:00)
[2023-02-06] MEDS ORDERED: fentaNYL CITRATE 100 MCG/2 ML VL IV ONE (12:00)
[2023-02-06] MEDS ORDERED: LIDOCAINE 2%HCL (LOCAL ANESTH.) INJ 10ml MDV ONE (12:34)
[2023-02-06] MEDS ORDERED: FURO40TA4 PO (13:46)
[2023-02-07] MEDS: LACTATED RINGER'S 1,000 ML IV SCH ×2 (04:45→14:45)
[2023-02-07 05:01] VITALS: BP 116/41
[2023-02-07] MEDS: MEROPENEM 1GM IVPB 100 ML IV SCH ×3 (05:45→21:21)
[2023-02-07] MEDS: ACCU-CHEK COMFORT CURVE STRIP VI SCH ×3 (05:47→18:21)
[2023-02-07 06:14] LABS: Basophils # (auto) 0 10 ^3/uL (0-0.2); Basophils % (auto) 0.2 % (0.0-2.0); Eosinophils # (auto) 0.1 10 ^3/uL (0-0.8); Eosinophils % (auto) 2.3 % (0.0-7.0); Hematocrit 40.9 % (41.0-53.0); Hemoglobin 13.9 g/dL (13.5-17.5); Lymphocytes # (auto) 0.9 10 ^3/uL (0.4-5.4); Lymphocytes % (auto) 14.1 % (10.0-50.0); Mean Corpuscular Hemoglobin 31.9 pg (28.0-32.0); Mean Corpuscular Hgb Conc. 33.8 g/dL (32.0-36.0); Mean Corpuscular Volume 94.3 fL (80.0-100.0); Monocytes # (auto) 0.9 10 ^3/uL (0-1.3); Monocytes % (auto) 13.8 % (0.0-12.0); Neutrophils # (auto) 4.5 10 ^3/uL (1.6-8.6); Neutrophils % (auto) 69.6 % (37.0-80.0); Nucleated Red Blood Cells % 0.1 %; Red Blood Cells 4.34 10^6/uL (4.5-5.90); Red Cell Distribution Width 12.2 % (11.8-14.3); White Blood Cell 6.5 10^3/uL (4.4-10.8)
[2023-02-07] MEDS: InsuLIN REG 1unit/0.01ml Soln (100units/ml) SC SCH ×3 (06:20→18:00)
[2023-02-07 06:22] LABS: Calcium 9.1 mg/dL (8.5-10.1); Potassium 4.4 mmol/L (3.5-5.1)
[2023-02-07 06:26] LABS: BUN/Creatinine Ratio 20.4 (10.0-20.0); Bilirubin, Total 0.9 mg/dL (0.2-1.0); Total Protein 5.8 g/dL (6.4-8.2)
[2023-02-07 08:30] VITALS: BP 145/71
[2023-02-07] MEDS: ENOXAPARIN SOD 40 MG/0.4 ML SYRINGE SC SCH (10:42)
[2023-02-07] MEDS: PANTOPRAZOLE 40 MG/10 ML VIAL INJ IV SCH (10:42)
[2023-02-07] MEDS ORDERED: CLINIMIX PER PHARMACY 0 ML IV SCH (11:30)
[2023-02-07 12:25] LABS: Magnesium 2.3 mg/dL (1.6-2.6)
[2023-02-07 12:27] LABS: Phosphorus 2.7 mg/dL (2.5-4.90)
[2023-02-07 13:13] VITALS: BP 151/75
[2023-02-07 16:46] VITALS: BP 150/83
[2023-02-07] MEDS: AMINO ACID INFUSION IN D10W 1,000 ML IV NR (20:21)
[2023-02-07 22:00] VITALS: BP 155/79
[2023-02-08] MEDS: ACCU-CHEK COMFORT CURVE STRIP VI SCH ×4 (00:01→18:21)
[2023-02-08] MEDS: InsuLIN REG 1unit/0.01ml Soln (100units/ml) SC SCH ×4 (00:02→18:21)
[2023-02-08 05:00] VITALS: BP 145/65
[2023-02-08 05:36] LABS: Basophils # (auto) 0 10 ^3/uL (0-0.2); Basophils % (auto) 0.2 % (0.0-2.0); Eosinophils # (auto) 0.2 10 ^3/uL (0-0.8); Eosinophils % (auto) 2.7 % (0.0-7.0); Hematocrit 43.5 % (41.0-53.0); Hemoglobin 14.2 g/dL (13.5-17.5); Lymphocytes # (auto) 0.8 10 ^3/uL (0.4-5.4); Lymphocytes % (auto) 10.9 % (10.0-50.0); Mean Corpuscular Hemoglobin 31.5 pg (28.0-32.0); Mean Corpuscular Hgb Conc. 32.7 g/dL (32.0-36.0); Mean Corpuscular Volume 96.2 fL (80.0-100.0); Monocytes % (auto) 12.7 % (0.0-12.0); Neutrophils # (auto) 5.5 10 ^3/uL (1.6-8.6); Neutrophils % (auto) 73.5 % (37.0-80.0); Nucleated Red Blood Cells % 0.1 %; Red Blood Cells 4.52 10^6/uL (4.5-5.90); Red Cell Distribution Width 12.3 % (11.8-14.3); White Blood Cell 7.5 10^3/uL (4.4-10.8)
[2023-02-08 05:48] LABS: Albumin 2.1 g/dL (3.4-5.0); Calcium 8.9 mg/dL (8.5-10.1); Magnesium 2.3 mg/dL (1.6-2.6); Potassium 4.3 mmol/L (3.5-5.1)
[2023-02-08 05:51] LABS: BUN/Creatinine Ratio 19.5 (10.0-20.0); Bilirubin, Total 0.7 mg/dL (0.2-1.0); Phosphorus 1.8 mg/dL (2.5-4.90); Total Protein 5.6 g/dL (6.4-8.2)
[2023-02-08] MEDS: MEROPENEM 1GM IVPB 100 ML IV SCH ×3 (06:49→21:26)
[2023-02-08] MEDS: LACTATED RINGER'S 1,000 ML IV SCH (07:05)
[2023-02-08] MEDS: ENOXAPARIN SOD 40 MG/0.4 ML SYRINGE SC SCH (09:00)
[2023-02-08] MEDS: PANTOPRAZOLE 40 MG/10 ML VIAL INJ IV SCH (09:00)
[2023-02-08 09:38] VITALS: BP 160/75
[2023-02-08] MEDS ORDERED: IOHEXOL 300 MG/ML 100ML BOTTLE IJ ONE (09:38)
[2023-02-08] MEDS ORDERED: SODIUM PHOSPHATES 24 MEQ in SODIUM CHL 0.9% 100 ML IV ONE (12:30)
[2023-02-08 17:00] VITALS: BP 149/78
[2023-02-08 20:00] VITALS: BP 147/74
[2023-02-08] MEDS: AMINO ACID INFUSION IN D10W 1,000 ML IV NR (20:15)
[2023-02-08 22:00] VITALS: BP 147/74
[2023-02-09] MEDS: ACCU-CHEK COMFORT CURVE STRIP VI SCH ×4 (00:35→18:06)
[2023-02-09] MEDS: InsuLIN REG 1unit/0.01ml Soln (100units/ml) SC SCH ×4 (00:35→18:11)
[2023-02-09 05:00] VITALS: BP 122/67
[2023-02-09] MEDS: MEROPENEM 1GM IVPB 100 ML IV SCH (05:40)
[2023-02-09 05:49] LABS: Calcium 8.7 mg/dL (8.5-10.1); Potassium 3.8 mmol/L (3.5-5.1)
[2023-02-09 05:54] LABS: Albumin 2.2 g/dL (3.4-5.0); BUN/Creatinine Ratio 18.1 (10.0-20.0); Bilirubin, Total 0.6 mg/dL (0.2-1.0); Magnesium 2.1 mg/dL (1.6-2.6); Phosphorus 2.6 mg/dL (2.5-4.90); Total Protein 5.7 g/dL (6.4-8.2)
[2023-02-09 06:21] LABS: Hemoglobin 14.2 g/dL (13.5-17.5); Mean Corpuscular Hemoglobin 31.6 pg (28.0-32.0); Mean Corpuscular Hgb Conc. 33.8 g/dL (32.0-36.0); Mean Corpuscular Volume 93.5 fL (80.0-100.0); White Blood Cell 8.8 10^3/uL (4.4-10.8)
[2023-02-09 06:27] LABS: Band Neutrophils % (manual) 0; Basophils % (manual) 0 (0.0-2.0); Blast Cells 0; Eosinophils % (manual) 0 (0-7); Metamyelocytes % 0; Myelocytes % 0; Promyelocytes % 0; Reactive Lymphocytes 0
[2023-02-09 08:02] LABS: Lymphocytes % (manual) 16 (10.0-50.0); Monocytes % (manual) 6 (0-12)
[2023-02-09 09:00] VITALS: BP 143/75
[2023-02-09] MEDS: ENOXAPARIN SOD 40 MG/0.4 ML SYRINGE SC SCH (09:54)
[2023-02-09] MEDS: levoFLOXacin 500MG 100 ML IV SCH (09:54)
[2023-02-09] MEDS: metroNIDAZOLE 500MG/100ML 100 ML IV SCH ×2 (09:54→16:38)
[2023-02-09 13:00] VITALS: BP 140/65
[2023-02-09 17:00] VITALS: BP 143/62
[2023-02-09] MEDS: AMINO ACID INFUSION IN D10W 1,000 ML IV NR (20:42)
[2023-02-09 22:00] VITALS: BP 126/54
[2023-02-10] MEDS: metroNIDAZOLE 500MG/100ML 100 ML IV SCH ×3 (00:12→17:00)
[2023-02-10] MEDS: ACCU-CHEK COMFORT CURVE STRIP VI SCH ×4 (00:12→17:51)
[2023-02-10] MEDS: InsuLIN REG 1unit/0.01ml Soln (100units/ml) SC SCH ×4 (00:27→17:52)
[2023-02-10 05:00] VITALS: BP 154/68
[2023-02-10 05:25] LABS: Basophils # (auto) 0 10 ^3/uL (0-0.2); Basophils % (auto) 0.4 % (0.0-2.0); Eosinophils # (auto) 0.2 10 ^3/uL (0-0.8); Eosinophils % (auto) 2.8 % (0.0-7.0); Hemoglobin 13.9 g/dL (13.5-17.5); Lymphocytes # (auto) 1.1 10 ^3/uL (0.4-5.4); Lymphocytes % (auto) 13.5 % (10.0-50.0); Mean Corpuscular Hemoglobin 32.2 pg (28.0-32.0); Mean Corpuscular Hgb Conc. 34.7 g/dL (32.0-36.0); Mean Corpuscular Volume 92.7 fL (80.0-100.0); Monocytes % (auto) 13.1 % (0.0-12.0); Neutrophils # (auto) 5.5 10 ^3/uL (1.6-8.6); Neutrophils % (auto) 70.2 % (37.0-80.0); Nucleated Red Blood Cells % 0.1 %; Red Blood Cells 4.32 10^6/uL (4.5-5.90); Red Cell Distribution Width 11.8 % (11.8-14.3); White Blood Cell 7.9 10^3/uL (4.4-10.8)
[2023-02-10 05:46] LABS: Albumin 2.1 g/dL (3.4-5.0)
[2023-02-10 05:49] LABS: Calcium 8.6 mg/dL (8.5-10.1); Magnesium 2.2 mg/dL (1.6-2.6); Phosphorus 1.6 mg/dL (2.5-4.90)
[2023-02-10 09:00] VITALS: BP 133/66
[2023-02-10] MEDS: levoFLOXacin 500MG 100 ML IV SCH ×2 (10:00→13:15)
[2023-02-10] MEDS ORDERED: SODIUM PHOSPHATES 24 MEQ in SODIUM CHL 0.9% 100 ML IV ONE (11:00)
[2023-02-10] MEDS: ENOXAPARIN SOD 40 MG/0.4 ML SYRINGE SC SCH (11:57)
[2023-02-10 13:18] VITALS: BP 153/76
[2023-02-10 17:00] VITALS: BP 136/72
[2023-02-10] MEDS: AMINO ACID INFUSION IN D10W 1,000 ML IV NR (20:25)
[2023-02-10 22:00] VITALS: BP 135/72
[2023-02-11] MEDS: metroNIDAZOLE 500MG/100ML 100 ML IV SCH ×2 (00:16→09:00)
[2023-02-11] MEDS: ACCU-CHEK COMFORT CURVE STRIP VI SCH ×3 (00:16→12:17)
[2023-02-11] MEDS: InsuLIN REG 1unit/0.01ml Soln (100units/ml) SC SCH ×3 (00:37→12:19)
[2023-02-11 05:00] VITALS: BP 142/79
[2023-02-11 05:21] LABS: Potassium 3.9 mmol/L (3.5-5.1)
[2023-02-11 05:26] LABS: Albumin 2.3 g/dL (3.4-5.0); BUN/Creatinine Ratio 15.2 (10.0-20.0); Calcium 8.8 mg/dL (8.5-10.1); Magnesium 2.1 mg/dL (1.6-2.6); Phosphorus 1.6 mg/dL (2.5-4.90)
[2023-02-11] MEDS ORDERED: METR500T PO (08:37)
[2023-02-11] MEDS ORDERED: LEVO500T31 PO (08:37)
[2023-02-11 09:00] VITALS: BP 158/81
[2023-02-11] MEDS: ENOXAPARIN SOD 40 MG/0.4 ML SYRINGE SC SCH (09:01)
[2023-02-11] MEDS: levoFLOXacin 500MG 100 ML IV SCH ×2 (10:00→10:31)
[2023-02-11 10:11] VITALS: BP 149/75
[2023-02-11 12:47] VITALS: BP 144/73
== END 2023-02-11 16:00 | disposition home or self-care (01) | DRG 871 ==
LOC: EDBD 21:05 → ER 21:07 → OVERFLOW 02-05 02:07 → CENTRAL 02-05 19:30 → TELE-CENTR 02-06 11:42 → CENTRAL 02-08 00:03
PROVIDERS: ADMIT Nurse Practitioner; ATTEND Nurse Practitioner Acute Care
PROC: 0W9G30Z Drainage of Peritoneal Cavity with Drainage Device, Percutaneous Approach (ICD-10-PCS; principal; 2023-02-06)
DX: A41.9 Sepsis, unspecified organism (principal); N17.0 Acute kidney failure with tubular necrosis; E44.0 Moderate protein-calorie malnutrition; R17 Unspecified jaundice; I25.810 Atherosclerosis of coronary artery bypass graft(s) without angina pectoris; N30.00 Acute cystitis without hematuria; K57.20 Diverticulitis of large intestine with perforation and abscess without bleeding; I12.9 Hypertensive chronic kidney disease with stage 1 through stage 4 chronic kidney disease, or unspecified chronic kidney disease; E86.0 Dehydration; E11.22 Type 2 diabetes mellitus with diabetic chronic kidney disease; B96.20 Unspecified Escherichia coli [E. coli] as the cause of diseases classified elsewhere; E78.5 Hyperlipidemia, unspecified; J44.9 Chronic obstructive pulmonary disease, unspecified; N18.9 Chronic kidney disease, unspecified; I25.10 Atherosclerotic heart disease of native coronary artery without angina pectoris; R74.01 Elevation of levels of liver transaminase levels; R79.89 Other specified abnormal findings of blood chemistry; Z68.29 Body mass index [BMI] 29.0-29.9, adult
CPT/HCPCS: 10005; 36415; 70450; 71045; 71260; 72192; 74176; 74177; 76705; 77012; 80053; 80069; 81001; 82962; 83735; 83880; 84100; 84484; 85007; 85025; 85027; 85610; 85730; 86850; 86900; 86901; 87040; 87077; 87086; 87186; 87205; 93005; 96361; 96365; 96366; 96367; 96368; 99291; C9113; G0378; J0696; J1815; J1956; J2001; J2185; J2250; J3490

== ENCOUNTER → 2023-03-13 | Outpatient (CLI) | payer MEDICARE, BC ==
[~2023-03-13] MED LIST changes: +FURO40TA4 PO; +LEVO500T31 PO; +METR500T PO
== END | disposition home or self-care (01) ==
LOC: XYW 10:30
PROVIDERS: ATTEND Internal Medicine Gastroenterology
DX: K82.9 Disease of gallbladder, unspecified (principal); K81.0 Acute cholecystitis
CPT/HCPCS: 78226; A9537

== ENCOUNTER → 2023-03-15 | Outpatient (CLI) | payer MEDICARE, BC ==
[2023-03-15 08:23] LABS: Basophils # (auto) 0.1 10 ^3/uL (0-0.2); Basophils % (auto) 0.6 % (0.0-2.0); Eosinophils # (auto) 0.2 10 ^3/uL (0-0.8); Eosinophils % (auto) 2.1 % (0.0-7.0); Hematocrit 41.8 % (41.0-53.0); Hemoglobin 14.2 g/dL (13.5-17.5); Lymphocytes # (auto) 3.3 10 ^3/uL (0.4-5.4); Lymphocytes % (auto) 30.5 % (10.0-50.0); Mean Corpuscular Hemoglobin 31.2 pg (28.0-32.0); Mean Corpuscular Volume 91.8 fL (80.0-100.0); Monocytes # (auto) 1.2 10 ^3/uL (0-1.3); Monocytes % (auto) 11.4 % (0.0-12.0); Neutrophils % (auto) 55.4 % (37.0-80.0); Red Blood Cells 4.55 10^6/uL (4.5-5.90); Red Cell Distribution Width 13.7 % (11.8-14.3); White Blood Cell 10.8 10^3/uL (4.4-10.8)
[2023-03-15 09:19] LABS: Albumin 3.1 g/dL (3.4-5.0); Magnesium 2.3 mg/dL (1.6-2.6); Phosphorus 2.7 mg/dL (2.5-4.90); Total Protein 7.2 g/dL (6.4-8.2)
[2023-03-15 10:00] LABS: Urine Bacteria NONE SEEN /hpf (None Seen); Urine Blood Negative /uL (Negative); Urine WBC <1 /hpf (0 - 3)
== END | disposition home or self-care (01) ==
LOC: LAB 07:51
PROVIDERS: ATTEND Student in an Organized Health Care Education/Training Program
DX: E11.22 Type 2 diabetes mellitus with diabetic chronic kidney disease (principal); N18.31 Chronic kidney disease, stage 3a; E61.2 Magnesium deficiency; D63.1 Anemia in chronic kidney disease; E21.3 Hyperparathyroidism, unspecified; R80.9 Proteinuria, unspecified
CPT/HCPCS: 36415; 80053; 81001; 82306; 83036; 83735; 83970; 84100; 85025

== ENCOUNTER → 2023-04-30 | Outpatient (CLI) | payer MEDICARE, BC ==
[~2023-04-30] MED LIST changes: +IOHEXOL 300 MG/ML 100ML BOTTLE IJ ONE; +LIDOCAINE 2%HCL (LOCAL ANESTH.) INJ 10ml MDV ONE
== END | disposition home or self-care (01) ==
LOC: XYW 08:40
PROVIDERS: ATTEND Internal Medicine Gastroenterology
DX: T85.528A Displacement of other gastrointestinal prosthetic devices, implants and grafts, initial encounter (principal); Y83.8 Other surgical procedures as the cause of abnormal reaction of the patient, or of later complication, without mention of misadventure at the time of the procedure
CPT/HCPCS: 74018; 76000; G0463; J2001

== ENCOUNTER → 2023-06-18 | Outpatient (CLI) | payer MEDICARE, BC ==
[~2023-06-18] MED LIST changes: -IOHEXOL 300 MG/ML 100ML BOTTLE IJ ONE; -LIDOCAINE 2%HCL (LOCAL ANESTH.) INJ 10ml MDV ONE
[2023-06-18 10:55] LABS: Basophils # (auto) 0.1 10 ^3/uL (0-0.2); Basophils % (auto) 0.4 % (0.0-2.0); Eosinophils # (auto) 0 10 ^3/uL (0-0.8); Eosinophils % (auto) 0.2 % (0.0-7.0); Hematocrit 52.2 % (41.0-53.0); Hemoglobin 17.1 g/dL (13.5-17.5); Lymphocytes # (auto) 2.3 10 ^3/uL (0.4-5.4); Lymphocytes % (auto) 12.4 % (10.0-50.0); Mean Corpuscular Hemoglobin 31.1 pg (28.0-32.0); Mean Corpuscular Hgb Conc. 32.9 g/dL (32.0-36.0); Mean Corpuscular Volume 94.6 fL (80.0-100.0); Monocytes # (auto) 1.5 10 ^3/uL (0-1.3); Monocytes % (auto) 8.1 % (0.0-12.0); Neutrophils # (auto) 14.8 10 ^3/uL (1.6-8.6); Neutrophils % (auto) 78.9 % (37.0-80.0); Red Blood Cells 5.51 10^6/uL (4.5-5.90); Red Cell Distribution Width 12.5 % (11.8-14.3); White Blood Cell 18.8 10^3/uL (4.4-10.8)
[2023-06-18 11:42] LABS: Alanine Aminotransferase 136 U/L (7-40); Albumin 4.4 g/dL (3.2-4.8); Alkaline Phosphatase 167 U/L (46-116); Bilirubin, Total 0.9 mg/dL (0.2-1.0); Blood Urea Nitrogen 28 mg/dL (9-23); Calcium 9.8 mg/dL (8.7-10.4); Carbon Dioxide 29 mmol/L (20-30); Chloride 103 mmol/L (98-107); Glucose 278 mg/dL (74-106); Potassium 4.4 mmol/L (3.5-5.1); Sodium 136 mmol/L (136-145); Total Protein 7.3 g/dL (5.7-8.2)
[2023-06-18 12:08] LABS: Aspartate Aminotransferase 64 U/L (13-40)
[2023-06-18 12:14] LABS: Anion Gap 4 (5-15); BUN/Creatinine Ratio 14.4 (10.0-20.0)
[2023-06-19 10:27] LABS: Urine Bacteria NONE SEEN /hpf (None Seen); Urine Blood Negative /uL (Negative); Urine Clarity Clear (Clear); Urine Color Yellow (Yellow); Urine Protein, UAD 1+ (Negative); Urine Urobilinogen Normal (Negative); Urine pH 5.5 (5.0-8.0)
[2023-06-19 10:55] LABS: Creatinine, Urine 95.09 mg/dL (30.0-125.0); Urine Protein/Creatinine Ratio 0.88
[2023-06-19 12:08] LABS: Urine Specific Gravity 1.019 (1.001-1.035); Urine WBC 1 /hpf (0 - 3)
== END | disposition home or self-care (01) ==
LOC: LAB 10:42
PROVIDERS: ATTEND Student in an Organized Health Care Education/Training Program
DX: N18.30 Chronic kidney disease, stage 3 unspecified (principal); D63.1 Anemia in chronic kidney disease; N39.0 Urinary tract infection, site not specified; R80.9 Proteinuria, unspecified; E21.3 Hyperparathyroidism, unspecified; M10.9 Gout, unspecified; E55.9 Vitamin D deficiency, unspecified; E11.21 Type 2 diabetes mellitus with diabetic nephropathy
CPT/HCPCS: 36415; 80053; 81001; 82570; 83036; 84156; 85025

== ENCOUNTER → 2023-07-24 | Outpatient (CLI) | payer MEDICARE, BC ==
[2023-07-24 09:13] LABS: Basophils # (auto) 0 10 ^3/uL (0-0.2); Basophils % (auto) 0.6 % (0.0-2.0); Eosinophils # (auto) 0.1 10 ^3/uL (0-0.8); Eosinophils % (auto) 1.2 % (0.0-7.0); Hemoglobin 17.5 g/dL (13.5-17.5); Lymphocytes # (auto) 2.8 10 ^3/uL (0.4-5.4); Lymphocytes % (auto) 36.3 % (10.0-50.0); Mean Corpuscular Hgb Conc. 33.6 g/dL (32.0-36.0); Mean Corpuscular Volume 92.3 fL (80.0-100.0); Monocytes # (auto) 0.7 10 ^3/uL (0-1.3); Monocytes % (auto) 9.7 % (0.0-12.0); Neutrophils % (auto) 52.2 % (37.0-80.0); Nucleated Red Blood Cells % 0.1 %; Red Blood Cells 5.64 10^6/uL (4.5-5.90); Red Cell Distribution Width 13.1 % (11.8-14.3); White Blood Cell 7.6 10^3/uL (4.4-10.8)
[2023-07-24 09:46] LABS: Alanine Aminotransferase 77 U/L (7-40); Albumin 4.4 g/dL (3.2-4.8); Alkaline Phosphatase 161 U/L (46-116); Anion Gap 7 (5-15); Aspartate Aminotransferase 42 U/L (13-40); BUN/Creatinine Ratio 11.7 (10.0-20.0); Bilirubin, Total 1.5 mg/dL (0.2-1.0); Blood Urea Nitrogen 19 mg/dL (9-23); Carbon Dioxide 27 mmol/L (20-30); Chloride 102 mmol/L (98-107); Cholesterol 182 mg/dL (< 200); Glucose 181 mg/dL (74-106); HDL Cholesterol 43 mg/dL (40-59); LDL Cholesterol 115 mg/dL (< 100); Potassium 4.1 mmol/L (3.5-5.1); Sodium 136 mmol/L (136-145); Total Protein 7.3 g/dL (5.7-8.2); Triglycerides 209 mg/dL (< 150)
[2023-07-24 10:29] LABS: Prostate Specific Antigen 2.11 ng/mL (0.0-4.0)
[2023-07-24 10:33] LABS: Free T4 (Free Thyroxine) 1.02 ng/dL (0.89-1.76)
== END | disposition home or self-care (01) ==
LOC: LAB 08:41
PROVIDERS: ATTEND Nurse Practitioner Family
DX: I12.9 Hypertensive chronic kidney disease with stage 1 through stage 4 chronic kidney disease, or unspecified chronic kidney disease (principal); E11.22 Type 2 diabetes mellitus with diabetic chronic kidney disease; N18.30 Chronic kidney disease, stage 3 unspecified; E66.09 Other obesity due to excess calories; Z00.01 Encounter for general adult medical examination with abnormal findings; R35.1 Nocturia
CPT/HCPCS: 36415; 80053; 80061; 82306; 84153; 84439; 84443; 85025

== ENCOUNTER → 2023-08-03 | Outpatient (CLI) | payer MEDICARE, BC | END | disposition home or self-care (01) | LOC: LAB 08:29 | PROVIDERS: ATTEND Internal Medicine Endocrinology, Diabetes & Metabolism | DX: E11.9 Type 2 diabetes mellitus without complications (principal); I50.32 Chronic diastolic (congestive) heart failure | CPT/HCPCS: 83880 ==

== ENCOUNTER → 2023-10-24 | Outpatient (CLI) | payer MEDICARE, BC ==
[2023-10-24 08:44] LABS: Basophils # (auto) 0 10 ^3/uL (0-0.2); Basophils % (auto) 0.6 % (0.0-2.0); Eosinophils # (auto) 0.1 10 ^3/uL (0-0.8); Eosinophils % (auto) 1.3 % (0.0-7.0); Hematocrit 49.6 % (41.0-53.0); Hemoglobin 16.7 g/dL (13.5-17.5); Lymphocytes # (auto) 2.2 10 ^3/uL (0.4-5.4); Lymphocytes % (auto) 31.5 % (10.0-50.0); Mean Corpuscular Hemoglobin 31.8 pg (28.0-32.0); Mean Corpuscular Hgb Conc. 33.6 g/dL (32.0-36.0); Mean Corpuscular Volume 94.6 fL (80.0-100.0); Monocytes # (auto) 0.8 10 ^3/uL (0-1.3); Monocytes % (auto) 10.9 % (0.0-12.0); Neutrophils # (auto) 3.8 10 ^3/uL (1.6-8.6); Neutrophils % (auto) 55.7 % (37.0-80.0); Red Blood Cells 5.25 10^6/uL (4.5-5.90); Red Cell Distribution Width 13.2 % (11.8-14.3); White Blood Cell 6.9 10^3/uL (4.4-10.8)
[2023-10-24 09:25] LABS: Alanine Aminotransferase 51 U/L (7-40); Albumin 4.2 g/dL (3.2-4.8); Alkaline Phosphatase 157 U/L (46-116); Anion Gap 4 (5-15); Aspartate Aminotransferase 43 U/L (13-40); BUN/Creatinine Ratio 11.1 (10.0-20.0); Bilirubin, Total 1.1 mg/dL (0.2-1.0); Blood Urea Nitrogen 19 mg/dL (9-23); Calcium 9.9 mg/dL (8.5-10.1); Carbon Dioxide 28 mmol/L (20-30); Chloride 105 mmol/L (98-107); Glucose 217 mg/dL (74-106); Potassium 4.5 mmol/L (3.5-5.1); Sodium 137 mmol/L (136-145)
[2023-10-25 10:41] LABS: Urine Bacteria NONE SEEN /hpf (None Seen); Urine Blood Negative /uL (Negative); Urine Clarity Clear (Clear); Urine Color Colorless (Yellow); Urine Protein, UAD 1+ (Negative); Urine Specific Gravity 1.016 (1.001-1.035); Urine Urobilinogen Normal (Negative); Urine WBC <1 /hpf (0 - 3)
[2023-10-25 10:57] LABS: Protein, Urine 44.1 mg/dL (0.0-11.9)
[2023-10-25 11:00] LABS: Creatinine, Urine 74.52 mg/dL (30.0-125.0); Urine Protein/Creatinine Ratio 0.59
== END | disposition home or self-care (01) ==
LOC: LAB 08:25
PROVIDERS: ATTEND Student in an Organized Health Care Education/Training Program
DX: E11.22 Type 2 diabetes mellitus with diabetic chronic kidney disease (principal); N18.31 Chronic kidney disease, stage 3a; D63.1 Anemia in chronic kidney disease; R82.90 Unspecified abnormal findings in urine; R80.9 Proteinuria, unspecified
CPT/HCPCS: 36415; 80053; 81001; 82570; 83036; 84156; 85025

== ENCOUNTER → 2023-11-22 | Outpatient (CLI) | payer MEDICARE, BC ==
[2023-11-22 09:01] LABS: Basophils # (auto) 0.1 10 ^3/uL (0-0.2); Basophils % (auto) 0.7 % (0.0-2.0); Eosinophils # (auto) 0.1 10 ^3/uL (0-0.8); Eosinophils % (auto) 1.7 % (0.0-7.0); Hematocrit 51.1 % (41.0-53.0); Hemoglobin 17.1 g/dL (13.5-17.5); Lymphocytes # (auto) 2.3 10 ^3/uL (0.4-5.4); Lymphocytes % (auto) 30.8 % (10.0-50.0); Mean Corpuscular Hemoglobin 31.2 pg (28.0-32.0); Mean Corpuscular Hgb Conc. 33.4 g/dL (32.0-36.0); Mean Corpuscular Volume 93.3 fL (80.0-100.0); Monocytes # (auto) 0.6 10 ^3/uL (0-1.3); Monocytes % (auto) 8.3 % (0.0-12.0); Neutrophils # (auto) 4.4 10 ^3/uL (1.6-8.6); Neutrophils % (auto) 58.5 % (37.0-80.0); Nucleated Red Blood Cells % 0.1 %; Red Blood Cells 5.47 10^6/uL (4.5-5.90); Red Cell Distribution Width 13.1 % (11.8-14.3); White Blood Cell 7.5 10^3/uL (4.4-10.8)
[2023-11-22 09:59] LABS: Alanine Aminotransferase 62 U/L (7-40); Albumin 4.3 g/dL (3.2-4.8); Alkaline Phosphatase 187 U/L (46-116); Anion Gap 4 (5-15); Aspartate Aminotransferase 52 U/L (13-40); BUN/Creatinine Ratio 10.6 (10.0-20.0); Bilirubin, Total 0.9 mg/dL (0.2-1.0); Blood Urea Nitrogen 20 mg/dL (9-23); Calcium 10.2 mg/dL (8.5-10.1); Carbon Dioxide 30 mmol/L (20-30); Chloride 102 mmol/L (98-107); Glucose 284 mg/dL (74-106); Potassium 4.3 mmol/L (3.5-5.1); Sodium 136 mmol/L (136-145)
== END | disposition home or self-care (01) ==
LOC: LAB 08:48
PROVIDERS: ATTEND Internal Medicine
DX: C15.5 Malignant neoplasm of lower third of esophagus (principal)
CPT/HCPCS: 36415; 80053; 82378; 83615; 85025; 86301

== ENCOUNTER → 2024-01-24 | Outpatient (CLI) | payer MEDICARE, BC ==
[2024-01-24 11:05] LABS: Chloride 106 mmol/L (98-107); Potassium 4.5 mmol/L (3.5-5.1); Sodium 139 mmol/L (136-145)
[2024-01-24 11:06] LABS: Anion Gap 6 (5-15); Carbon Dioxide 27 mmol/L (20-30)
[2024-01-24 11:07] LABS: Calcium 10.2 mg/dL (8.5-10.1)
[2024-01-24 11:11] LABS: BUN/Creatinine Ratio 15.2 (10.0-20.0); Blood Urea Nitrogen 25 mg/dL (9-23); Glucose 144 mg/dL (74-106)
== END | disposition home or self-care (01) ==
LOC: LAB 09:59
PROVIDERS: ATTEND Internal Medicine Endocrinology, Diabetes & Metabolism
DX: E11.9 Type 2 diabetes mellitus without complications (principal)
CPT/HCPCS: 36415; 80048

== ENCOUNTER → 2024-02-26 | Outpatient (CLI) | payer MEDICARE, BC ==
[2024-02-26 09:53] LABS: Basophils # (auto) 0 10 ^3/uL (0-0.2); Basophils % (auto) 0.6 % (0.0-2.0); Eosinophils # (auto) 0.1 10 ^3/uL (0-0.8); Eosinophils % (auto) 1.8 % (0.0-7.0); Hematocrit 51.5 % (41.0-53.0); Hemoglobin 17.5 g/dL (13.5-17.5); Lymphocytes # (auto) 2.3 10 ^3/uL (0.4-5.4); Lymphocytes % (auto) 29.2 % (10.0-50.0); Mean Corpuscular Hemoglobin 32.4 pg (28.0-32.0); Mean Corpuscular Hgb Conc. 34.1 g/dL (32.0-36.0); Mean Corpuscular Volume 95.3 fL (80.0-100.0); Monocytes # (auto) 0.9 10 ^3/uL (0-1.3); Monocytes % (auto) 12.2 % (0.0-12.0); Neutrophils # (auto) 4.4 10 ^3/uL (1.6-8.6); Neutrophils % (auto) 56.2 % (37.0-80.0); Nucleated Red Blood Cells % 0.1 %; Red Cell Distribution Width 13.5 % (11.8-14.3); White Blood Cell 7.8 10^3/uL (4.4-10.8)
[2024-02-26 10:23] LABS: Alanine Aminotransferase 64 U/L (7-40); Albumin 4.4 g/dL (3.2-4.8); Alkaline Phosphatase 155 U/L (46-116); Anion Gap 4 (5-15); Aspartate Aminotransferase 37 U/L (13-40); BUN/Creatinine Ratio 13.5 (10.0-20.0); Bilirubin, Total 1.3 mg/dL (0.2-1.0); Blood Urea Nitrogen 22 mg/dL (9-23); Calcium 10.1 mg/dL (8.5-10.1); Carbon Dioxide 27 mmol/L (20-30); Chloride 108 mmol/L (98-107); Cholesterol 147 mg/dL (< 200); Glucose 102 mg/dL (74-106); HDL Cholesterol 40 mg/dL (40-59); LDL Cholesterol 85 mg/dL (< 100); Potassium 4.1 mmol/L (3.5-5.1); Sodium 139 mmol/L (136-145); Total Protein 7.3 g/dL (5.7-8.2); Triglycerides 165 mg/dL (< 150)
== END | disposition home or self-care (01) ==
LOC: LAB 09:37
PROVIDERS: ATTEND Internal Medicine Endocrinology, Diabetes & Metabolism
DX: E11.9 Type 2 diabetes mellitus without complications (principal)
CPT/HCPCS: 36415; 80053; 80061; 83036; 85025

== ENCOUNTER → 2024-03-05 | Outpatient (CLI) | payer MEDICARE, BC ==
[2024-03-05 07:29] LABS: Basophils # (auto) 0.1 10 ^3/uL (0-0.2); Basophils % (auto) 0.7 % (0.0-2.0); Eosinophils # (auto) 0.1 10 ^3/uL (0-0.8); Eosinophils % (auto) 1.5 % (0.0-7.0); Hematocrit 48.5 % (41.0-53.0); Hemoglobin 16.5 g/dL (13.5-17.5); Lymphocytes # (auto) 2.4 10 ^3/uL (0.4-5.4); Lymphocytes % (auto) 27.5 % (10.0-50.0); Mean Corpuscular Hemoglobin 32.3 pg (28.0-32.0); Mean Corpuscular Hgb Conc. 34.1 g/dL (32.0-36.0); Mean Corpuscular Volume 94.7 fL (80.0-100.0); Monocytes % (auto) 11.4 % (0.0-12.0); Neutrophils # (auto) 5.1 10 ^3/uL (1.6-8.6); Neutrophils % (auto) 58.9 % (37.0-80.0); Red Blood Cells 5.12 10^6/uL (4.5-5.90); Red Cell Distribution Width 13.3 % (11.8-14.3); White Blood Cell 8.7 10^3/uL (4.4-10.8)
[2024-03-05 08:25] LABS: Alanine Aminotransferase 73 U/L (7-40); Alkaline Phosphatase 152 U/L (46-116); Anion Gap 3 (5-15); Aspartate Aminotransferase 39 U/L (13-40); BUN/Creatinine Ratio 15.3 (10.0-20.0); Blood Urea Nitrogen 23 mg/dL (9-23); Calcium 9.9 mg/dL (8.5-10.1); Carbon Dioxide 23 mmol/L (20-30); Chloride 110 mmol/L (98-107); Glucose 187 mg/dL (74-106); LDL Cholesterol 74 mg/dL (< 100); Sodium 136 mmol/L (136-145); Triglycerides 165 mg/dL (< 150)
[2024-03-05 08:26] LABS: Albumin 4.2 g/dL (3.2-4.8); Bilirubin, Direct 0.4 mg/dL (<0.3); Cholesterol 131 mg/dL (< 200); HDL Cholesterol 39 mg/dL (40-59)
[2024-03-05 09:12] LABS: T3 Total 0.78 ng/mL (0.60-1.81)
[2024-03-05 09:13] LABS: Carcinoembryonic Antigen 2.31 ng/mL (<=5.0)
[2024-03-06 08:06] LABS: PSA Free 0.71 ng/mL; Prostate Specific Antigen 1.5 ng/mL (0.0-4.0); Thyroxine (T4) 5.1 ug/dL (4.5-12.0)
== END | disposition home or self-care (01) ==
LOC: LAB 07:07
PROVIDERS: ATTEND Internal Medicine
DX: E78.00 Pure hypercholesterolemia, unspecified (principal); E11.9 Type 2 diabetes mellitus without complications; D64.9 Anemia, unspecified; R79.9 Abnormal finding of blood chemistry, unspecified; R74.01 Elevation of levels of liver transaminase levels; E78.41 Elevated Lipoprotein(a); C15.9 Malignant neoplasm of esophagus, unspecified; C15.5 Malignant neoplasm of lower third of esophagus; Z79.899 Other long term (current) drug therapy
CPT/HCPCS: 36415; 80053; 80061; 80076; 82378; 82626; 83036; 84154; 84436; 84443; 84480; 85025; 86301

== ENCOUNTER 2024-03-14 08:32 | Day surgery (SDC) | payer MEDICARE, BC ==
[2024-03-12 09:43] LABS: Basophils # (auto) 0.1 10 ^3/uL (0-0.2); Basophils % (auto) 0.6 % (0.0-2.0); Eosinophils # (auto) 0.1 10 ^3/uL (0-0.8); Eosinophils % (auto) 1.4 % (0.0-7.0); Hematocrit 49.1 % (41.0-53.0); Hemoglobin 16.5 g/dL (13.5-17.5); Lymphocytes # (auto) 2.1 10 ^3/uL (0.4-5.4); Lymphocytes % (auto) 23.8 % (10.0-50.0); Mean Corpuscular Hemoglobin 31.7 pg (28.0-32.0); Mean Corpuscular Hgb Conc. 33.7 g/dL (32.0-36.0); Mean Corpuscular Volume 94.2 fL (80.0-100.0); Monocytes # (auto) 0.8 10 ^3/uL (0-1.3); Monocytes % (auto) 9.4 % (0.0-12.0); Neutrophils # (auto) 5.8 10 ^3/uL (1.6-8.6); Neutrophils % (auto) 64.8 % (37.0-80.0); Red Blood Cells 5.21 10^6/uL (4.5-5.90); Red Cell Distribution Width 13.2 % (11.8-14.3)
[2024-03-12 10:07] LABS: INR 1.09 (0.9-1.15); Partial Thromboplastin Time 25.9 SEC (24.5-34.5); Prothrombin Time 11.5 sec (9.3-11.8)
[2024-03-12 10:29] LABS: Alanine Aminotransferase 73 U/L (7-40); Albumin 4.2 g/dL (3.2-4.8); Alkaline Phosphatase 147 U/L (46-116); Anion Gap 4 (5-15); Aspartate Aminotransferase 57 U/L (13-40); Blood Urea Nitrogen 30 mg/dL (9-23); Calcium 10.1 mg/dL (8.5-10.1); Carbon Dioxide 27 mmol/L (20-30); Chloride 107 mmol/L (98-107); Glucose 120 mg/dL (74-106); Potassium 4.5 mmol/L (3.5-5.1); Sodium 138 mmol/L (136-145)
[2024-03-12 10:30] LABS: Total Protein 6.8 g/dL (5.7-8.2)
[~2024-03-14] VITALS: Ht 170.2 cm; Wt 97.1 kg
[~2024-03-14 08:32] MED LIST changes: -LEVO500T31 PO; -METR500T PO
[2024-03-14 08:40] VITALS: TEMP 98.9
[2024-03-14] MEDS ORDERED: PROPOFOL 10 MG/ML 20 ML IV ONE (10:31)
[2024-03-14] MEDS ORDERED: LIDOCAINE 2% (LOCAL ANESTH.) PF 5ml SDV ONE (10:31)
[2024-03-14] MEDS ORDERED: MIDAZOLAM HCL 2MG/2ML 2ml VIAL (1mg/ml) ONE (10:33)
[2024-03-14] MEDS ORDERED: fentaNYL CITRATE 100 MCG/2 ML VL ONE (10:33)
[2024-03-14] MEDS ORDERED: ONDANSETRON HCL 4 MG/2 ML VIAL ONE (10:33)
[2024-03-14 11:28] VITALS: O2SAT 95
[2024-03-14] MEDS ORDERED: ONDANSETRON HCL 4 MG/2 ML VIAL IV ONE (11:45)
[2024-03-14 12:13] VITALS: BP 155/83; PULSE 70; RESP 18; O2SAT 95
== END 2024-03-14 12:25 | disposition home or self-care (01) ==
LOC: GI 08:32
PROVIDERS: ATTEND Internal Medicine Gastroenterology
DX: Z12.11 Encounter for screening for malignant neoplasm of colon (principal); D12.7 Benign neoplasm of rectosigmoid junction; K57.30 Diverticulosis of large intestine without perforation or abscess without bleeding; K29.50 Unspecified chronic gastritis without bleeding; K44.9 Diaphragmatic hernia without obstruction or gangrene; K22.2 Esophageal obstruction; I25.10 Atherosclerotic heart disease of native coronary artery without angina pectoris; I13.0 Hypertensive heart and chronic kidney disease with heart failure and stage 1 through stage 4 chronic kidney disease, or unspecified chronic kidney disease; I50.9 Heart failure, unspecified; E11.22 Type 2 diabetes mellitus with diabetic chronic kidney disease; N18.30 Chronic kidney disease, stage 3 unspecified; J44.9 Chronic obstructive pulmonary disease, unspecified; G47.33 Obstructive sleep apnea (adult) (pediatric); Z79.899 Other long term (current) drug therapy; Z85.01 Personal history of malignant neoplasm of esophagus; Z86.010 Personal history of colon polyps; Z95.1 Presence of aortocoronary bypass graft; Z85.828 Personal history of other malignant neoplasm of skin; Z95.5 Presence of coronary angioplasty implant and graft; Z98.890 Other specified postprocedural states
CPT/HCPCS: 36415; 43239; 45380; 80053; 82962; 85025; 85610; 85730; 88305; 88312; 88342; J1642; J2001; J2250; J2405; J2704; J3010; J7030

== ENCOUNTER → 2024-03-31 | Outpatient (CLI) | payer MEDICARE, BC ==
[2024-03-31 09:19] LABS: Basophils # (auto) 0 10 ^3/uL (0-0.2); Basophils % (auto) 0.5 % (0.0-2.0); Eosinophils # (auto) 0.1 10 ^3/uL (0-0.8); Eosinophils % (auto) 1.3 % (0.0-7.0); Hematocrit 47.2 % (41.0-53.0); Hemoglobin 16.2 g/dL (13.5-17.5); Lymphocytes # (auto) 2.3 10 ^3/uL (0.4-5.4); Lymphocytes % (auto) 23.7 % (10.0-50.0); Mean Corpuscular Hemoglobin 32.4 pg (28.0-32.0); Mean Corpuscular Hgb Conc. 34.3 g/dL (32.0-36.0); Mean Corpuscular Volume 94.6 fL (80.0-100.0); Monocytes # (auto) 0.9 10 ^3/uL (0-1.3); Monocytes % (auto) 9.7 % (0.0-12.0); Neutrophils # (auto) 6.3 10 ^3/uL (1.6-8.6); Neutrophils % (auto) 64.8 % (37.0-80.0); Nucleated Red Blood Cells % 0.1 %; Red Blood Cells 4.99 10^6/uL (4.5-5.90); White Blood Cell 9.6 10^3/uL (4.4-10.8)
[2024-03-31 09:46] LABS: Alanine Aminotransferase 120 U/L (7-40); Alkaline Phosphatase 191 U/L (46-116); Anion Gap 6 (5-15); Aspartate Aminotransferase 77 U/L (13-40); Blood Urea Nitrogen 17 mg/dL (9-23); Calcium 9.9 mg/dL (8.7-10.4); Carbon Dioxide 23 mmol/L (20-30); Chloride 108 mmol/L (98-107); Glucose 186 mg/dL (74-106); Magnesium 1.9 mg/dL (1.6-2.6); Phosphorus 2.4 mg/dL (2.4-5.1); Potassium 4.4 mmol/L (3.5-5.1); Sodium 137 mmol/L (136-145); Total Protein 6.6 g/dL (5.7-8.2)
[2024-03-31 11:04] LABS: Urine Blood Negative /uL (Negative); Urine Clarity Clear (Clear); Urine Color Light-Yellow (Yellow); Urine Protein, UAD 1+ (Negative); Urine Specific Gravity 1.017 (1.001-1.035); Urine Urobilinogen Normal (Negative); Urine WBC <1 /hpf (0 - 3); Urine pH 5.5 (5.0-9.0)
[2024-03-31 11:48] LABS: Protein, Urine 78.5 mg/dL (0.0-11.9)
[2024-03-31 11:51] LABS: Creatinine, Urine 90.85 mg/dL (30.0-125.0); Urine Protein/Creatinine Ratio 0.86
[2024-03-31 13:02] LABS: Urine Bacteria NONE SEEN /hpf (None Seen)
== END | disposition home or self-care (01) ==
LOC: LAB 08:57
PROVIDERS: ATTEND Student in an Organized Health Care Education/Training Program
DX: E83.39 Other disorders of phosphorus metabolism (principal); R82.90 Unspecified abnormal findings in urine; N18.31 Chronic kidney disease, stage 3a; D63.1 Anemia in chronic kidney disease
CPT/HCPCS: 36415; 80053; 81001; 82570; 83735; 84100; 84156; 85025

== ENCOUNTER → 2024-07-21 | Outpatient (CLI) | payer MEDICARE, BC ==
[2024-07-21 13:11] LABS: Urine Bacteria None Seen /hpf (None Seen); Urine WBC None Seen /hpf (0 - 3)
[2024-07-21 13:25] LABS: Basophils # (auto) 0 10 ^3/uL (0-0.2); Basophils % (auto) 0.6 % (0.0-2.0); Eosinophils # (auto) 0.1 10 ^3/uL (0-0.8); Eosinophils % (auto) 1.5 % (0.0-7.0); Hematocrit 48.1 % (41.0-53.0); Hemoglobin 16.5 g/dL (13.5-17.5); Lymphocytes # (auto) 2.3 10 ^3/uL (0.4-5.4); Lymphocytes % (auto) 28.2 % (10.0-50.0); Mean Corpuscular Hemoglobin 32.5 pg (28.0-32.0); Mean Corpuscular Hgb Conc. 34.3 g/dL (32.0-36.0); Mean Corpuscular Volume 94.7 fL (80.0-100.0); Monocytes # (auto) 0.8 10 ^3/uL (0-1.3); Monocytes % (auto) 9.3 % (0.0-12.0); Neutrophils % (auto) 60.4 % (37.0-80.0); Platelet Count (auto) 201 10^3/uL (140-450); Red Blood Cells 5.08 10^6/uL (4.5-5.90); Red Cell Distribution Width 12.8 % (11.8-14.3); White Blood Cell 8.2 10^3/uL (4.4-10.8)
[2024-07-21 14:04] LABS: Urine Blood Negative /uL (Negative); Urine Clarity Clear (Clear); Urine Color Light-Yellow (Yellow); Urine Protein, UAD 1+ (Negative); Urine Specific Gravity 1.011 (1.001-1.035); Urine Urobilinogen Normal (Negative); Urine pH 5.5 (5.0-9.0)
[2024-07-21 14:23] LABS: Alanine Aminotransferase 60 U/L (7-40); Albumin 4.3 g/dL (3.2-4.8); Alkaline Phosphatase 177 U/L (46-116); Anion Gap 5 (5-15); Aspartate Aminotransferase 35 U/L (13-40); BUN/Creatinine Ratio 10.6 (10.0-20.0); Blood Urea Nitrogen 19 mg/dL (9-23); Calcium 10.3 mg/dL (8.7-10.4); Carbon Dioxide 28 mmol/L (20-31); Chloride 103 mmol/L (98-107); Glucose 384 mg/dL (74-106); Magnesium 2.2 mg/dL (1.6-2.6); Potassium 4.1 mmol/L (3.5-5.1); Sodium 136 mmol/L (136-145)
[2024-07-21 14:24] LABS: Bilirubin, Total 1.1 mg/dL (0.2-1.0); Phosphorus 2.4 mg/dL (2.4-5.1); Total Protein 7.4 g/dL (5.7-8.2)
[2024-07-21 14:44] LABS: Protein, Urine 44.3 mg/dL (1-14)
[2024-07-21 14:47] LABS: Creatinine, Urine 53.59 mg/dL (30.0-125.0); Urine Protein/Creatinine Ratio 0.83
== END | disposition home or self-care (01) ==
LOC: LAB 13:00
PROVIDERS: ATTEND Internal Medicine
DX: C15.5 Malignant neoplasm of lower third of esophagus (principal); E11.22 Type 2 diabetes mellitus with diabetic chronic kidney disease; N18.30 Chronic kidney disease, stage 3 unspecified; E11.21 Type 2 diabetes mellitus with diabetic nephropathy; E21.3 Hyperparathyroidism, unspecified; D63.1 Anemia in chronic kidney disease; N39.0 Urinary tract infection, site not specified; R80.9 Proteinuria, unspecified; M10.9 Gout, unspecified; E55.9 Vitamin D deficiency, unspecified
CPT/HCPCS: 36415; 80053; 81001; 82570; 83036; 83615; 83735; 84100; 84156; 85025

== ENCOUNTER 2025-01-03 18:10 | Inpatient (IN) | payer MEDICAID ==
[~2025-01-03] VITALS: Ht 172.7 cm; Wt 75.2 kg
[2025-01-03 18:40] VITALS: PULSE 104; RESP 20; O2SAT 92
[2025-01-03 19:05] LABS: Basophils # (auto) 0 10 ^3/uL (0-0.2); Basophils % (auto) 0.5 % (0.0-2.0); Eosinophils # (auto) 0.2 10 ^3/uL (0-0.8); Eosinophils % (auto) 3.4 % (0.0-7.0); Hematocrit 42.8 % (41.0-53.0); Hemoglobin 13.9 g/dL (13.5-17.5); Lymphocytes # (auto) 2.2 10 ^3/uL (0.4-5.4); Mean Corpuscular Hemoglobin 30.5 pg (28.0-32.0); Mean Corpuscular Hgb Conc. 32.5 g/dL (32.0-36.0); Mean Corpuscular Volume 93.9 fL (80.0-100.0); Monocytes # (auto) 0.8 10 ^3/uL (0-1.3); Neutrophils # (auto) 3.5 10 ^3/uL (1.6-8.6); Neutrophils % (auto) 52.1 % (37.0-80.0); Nucleated Red Blood Cells % 0.5 %; Platelet Count (auto) 351 10^3/uL (140-450); Red Blood Cells 4.56 10^6/uL (4.5-5.90); Red Cell Distribution Width 16.8 % (11.8-14.3); White Blood Cell 6.7 10^3/uL (4.4-10.8)
--- NOTE | 2025-01-03 19:05 | ED.PDOC ---
History of Present Illness HPI Comments 74-year-old male came to emergency room via EMS for shortness of breath. Patient has history of hypertension, diabetes, Afib, CHF, asthma, CVA, seizures. Was discharged at [facility] last January 02, 2025 for septic shock. Was noted to be short of breath at home and was saturating at 70% on room air. Patient was placed at 6lpm and it improved to 98%. Blood sugar on scene was 211 Chief Complaint: Shortness of Breath Time Seen by MD: 19:04 Primary Care Provider: dr acevedo Reviewed Notes: Nurses Notes Allergies: Coded Allergies: NO KNOWN ALLERGIES (Unverified , 10/26/22) Home Meds Active Scripts Linagliptin Base (TRADJENTA) 5 Mg Tab, 1 TAB PO DAILY, #90 TAB 1 Refill Prov:SOLIS NIEVES MD 10/29/22 Pantoprazole Sodium Sesquihydr (Protonix) 40 Mg Tab, 40 MG PO BID, #60 TAB Prov:LEVI GALLOWAY MD 05/14/20 Reported Medications Furosemide (Furosemide) 40 Mg Tab, 40 MG PO DAILY for 30 Days 02/06/23 Sacubitril-Valsartan (Entresto 24-26 mg) Unknown Strength Tab, PO, TAB 12/12/22 Aspirin (Aspir-Low) 81 Mg Tab, 81 MG PO DAILY for 30 Days, MG 12/12/22 Sitagliptin Phosphate (Januvia) Unknown Strength Tab, PO DAILY, #30 TAB 5 Refills 12/12/22 Insulin Glargine (Lantus) 100 Unit/Ml Inj, 100 UNIT SC, INJ 12/12/22 Insulin Lispro (Human) (Humalog) 100 Unit/Ml Inj, 100 UNIT SC, INJ 12/12/22 Fluticasone Propionate (FLOVENT HFA 110Mcg INH) 110 Mcg Ih, 2 PUFF INH Q12HR, MCG 05/12/20 Hydrocodone-Acetaminophen (Addison 7.5-325 mg) 1 Tab Tab, 1 TAB PO BIDP PRN for PAIN, TAB 05/12/20 Carvedilol (Carvedilol) 12.5 Mg Tab, 12.5 MG PO Q12HR for 30 Days, MG QAM, TAKE CARVEDILOL 12.5 MG TAB WITH CARVEDILOL 25 MG TAB. QPM, TAKE CARVEDILOL 12.5 MG TAB ONLY 05/12/20 Gabapentin (Gabapentin) 600 Mg Tab, 600 MG PO BID for 30 Days, MG 05/12/20 Atorvastatin Calcium (ATORVASTATIN CALCIUM) 20 Mg Tab, 1 TAB PO QPM, #30 TAB 5 Refills 02/16/17 Albuterol Sulfate (Ventolin Hfa) Aer, 2 PUFF IN BIDP PRN for SHORTNESS OF BREATH, AER 02/16/17 Information Source: Patient, Emergency Med Personnel Mode of Arrival: EMS Severity: Moderate Timing: Hours Duration: Since onset Prehospital treatment: Oxygen Past Medical History PAST MEDICAL HISTORY: AFIB, CKF, COPD, CVA, DM, High Lipids, HTN, ME, Seizures, UTI'S Surgical History: CABG Family History Family History: No family hx of Cancer Social History Smoker: Non-Smoker Alcohol: Denies ETOH Use Drugs: Denies Drug Use Lives In: Home Constitutional: denies: chills, diaphoresis, fatigue, fever, malaise, sweats, weakness, others EENTM: denies: blurred vision, double vision, ear bleeding, ear discharge, ear drainage, ear pain, ear ringing, eye pain, eye redness, hearing loss, mouth pain, mouth swelling, nasal discharge, nose bleeding, nose congestion, nose pain, photophobia, tearing, throat pain, throat swelling, voice changes, others Respiratory: reports: shortness of breath; denies: cough, hemoptysis, orthopnea, SOB at rest, SOB with excertion, stridor, wheezing, others Cardiovascular: denies: chest pain, dizzy spells, diaphoresis, Dyspnea on exertion, edema, irregular heart beat, left arm pain, lightheadedness, palpitations, PND, syncope, others Gastrointestinal: denies: abdomen distended, abdominal pain, blood streaked bowels, constipated, diarrhea, dysphagia, difficulty swallowing, hematemesis, melena, nausea, poor appetite, poor fluid intake, rectal bleeding, rectal pain, vomiting, others Genitourinary: denies: burning, dysuria, flank pain, frequency, hematuria, incontinence, penile discharge, penile sore, pain, testicle pain, testicle swelling, urgency, others Neurological: denies: dizziness, fainting, headache, left sided numbness, left sided weakness, numbness, paresthesia, pre-existing deficit, right sided numbness, right sided weakness, seizure, speech problems, tingling, tremors, weakness, others Musculoskeletal: denies: back pain, gout, joint pain, joint swelling, muscle pain, muscle stiffness, neck pain, others Integumetry: denies: bruises, change in color, change in hair/nails, dryness, laceration, lesions, lumps, rash, wounds, others Allergic/Immunocompromised: denies: Difficulty Healing, Frequent Infections, Hives, Itching, others Hematologic/Lymphatic: denies: anemia, blood clots, easy bleeding, easy bruising, swollen glands, others Endocrine: denies: excessive hunger, excessive sweating, excessive thirst, excessive urination, flushing, intolerance to cold, intolerance to heat, unexplained weight gain, unexplained weight loss, others Psychiatric: denies: anxiety, bipolar disorder, depression, hopeless, panic disorder, schizophrenia, sleepless, suicidal, others Physical Exam General Appearance: No Apparent Distress, Normal HEENT: Normal ENT Inspection, Pharynx Normal, TMs Normal Neck: Full Range of Motion, Non-Tender, Normal, Normal Inspection Respiratory: Chest Non-Tender, Lungs Clear, No Accessory Muscle Use, No Respiratory Distress, Normal Breath Sounds Cardiovascular: No Edema, No JVD, No Murmur, No Gallop, Normal Peripheral Pulses, Regular Rate/Rhythm Breast Exam: Deferred Gastrointestinal: No Organomegaly, Non Tender, No Pulsatile Mass, Normal Bowel Sounds, Soft Genitalia: Deferred Pelvic: Deferred Rectal: Deferred Extremities: No calf tenderness, Normal capillary refill, Normal inspection, Normal range of motion, Non-tender, No pedal edema Musculoskeletal : Apperance: Normal Neurologic: Alert, major case detective II-XII nml as Tested, No Motor Deficits, Normal Affect, Normal Mood, No Sensory Deficits Cerebellar Function: Normal Reflexes: Normal Skin: Dry, Normal Color, Warm Lymphatic: No Adenopathy Was a procedure done? Was a procedure done?: No EKG EKG : Pulse Rate (adult): 111 Cardiac Rhythm: Afib Differential Dx Considerations may include: Anemia, electrolyte imbalance, congestive heart failure, pneumonia, sepsis X-Ray, Labs, Meds, VS Vital Signs Date Time Temp Pulse Resp B/P (MAP) Pulse Ox O2 Delivery O2 Flow Rate FiO2 01/03/25 19:15 97.8 114 20 92/54 (67) 94 97.8 01/03/25 19:05 111 01/03/25 18:40 101 20 94/59 (71) 94 01/03/25 18:40 104 20 92 Nasal Cannula* 6 44 01/03/25 18:24 98.8 98 20 100/66 (77) 98 98.8 01/03/25 18:16 111 Lab Test 01/03/25 20:00 01/03/25 18:30 Range/Units Urine Color Pending Urine Clarity Pending Urine pH Pending Urine Specific Regan Pending Urine Protein Pending Urine Ketones Pending Urine Blood Pending Urine Nitrite Pending Urine Bilirubin Pending Urine Urobilinogen Pending Urine Leukocyte Esterase Pending Urine RBC Pending Urine Microscopic WBC Pending Urine Squamous Epithelial Cells Pending Urine Bacteria Pending Urine Glucose Pending White Blood Count 6.7 4.4-10.8 10^3/uL Red Blood Count 4.56 4.5-5.90 10^6/uL Hemoglobin 13.9 13.5-17.5 g/dL Hematocrit 42.8 41.0-53.0 % Mean Corpuscular Volume 93.9 80.0-100.0 fL Mean Corpuscular Hemoglobin 30.5 28.0-32.0 pg Mean Corpuscular Hemoglobin Concent 32.5 32.0-36.0 g/dL Red Cell Distribution Width 16.8 H 11.8-14.3 % Platelet Count 351 140-450 10^3/uL Mean Platelet Volume 8.0 6.9-10.8 fL Neutrophils (%) (Auto) 52.1 37.0-80.0 % Lymphocytes (%) (Auto) 32.0 10.0-50.0 % Monocytes (%) (Auto) 12.0 0.0-12.0 % Eosinophils (%) (Auto) 3.4 0.0-7.0 % Basophils (%) (Auto) 0.5 0.0-2.0 % Neutrophils # (Auto) 3.5 1.6-8.6 10 ^3/uL Lymphocytes # (Auto) 2.2 0.4-5.4 10 ^3/uL Monocytes # (Auto) 0.8 0-1.3 10 ^3/uL Eosinophils # (Auto) 0.2 0-0.8 10 ^3/uL Basophils # (Auto) 0 0-0.2 10 ^3/uL Nucleated Red Blood Cells 0.5 % Sodium Level 137 136-145 mmol/L Potassium Level 4.7 3.5-5.1 mmol/L Chloride Level 100 98-107 mmol/L Carbon Dioxide Level 26 20-31 mmol/L Anion Gap 11 5-15 Blood Urea Nitrogen 34 H 9-23 mg/dL Creatinine 0.95 0.700-1.30 mg/dL Glomerular Filtration Rate Calc 83 >90 mL/min BUN/Creatinine Ratio 35.8 H 10.0-20.0 Serum Glucose 227 H 74-106 mg/dL Lactic Acid Level 1.8 0.4-2.0 mmol/L Calcium Level 10.2 8.7-10.4 mg/dL Troponin I High Sensitivity 35 </=54 ng/L Time of 1ST Reevaluation: 19:00 Reevaluation 1ST: Unchanged Patient Education/Counseling: Diagnosis, Treatment Family Education/Counseling: No Family Present Departure 1 Departure Time of Disposition: 20:34 (Patient was discharged from [place] yesterday after several months. Patient with altered mental status and worsening shortness of breath will admit for further work up) Impression: Primary Impression: Metabolic encephalopathy Additional Impressions: Shortness of breath CVA (cerebral vascular accident) Qualified Codes: I63.9 - Cerebral infarction, unspecified Disposition: 09 ADMITTED INPATIENT Admit to: Med Surg Condition: Serious Critical Care Note Critical Care Time?: Yes (45 min-critical care time only) Critical care comment: Shortness of breath Authorized and Performed by: Ashley Lorenzo MD Total critical care time: Approximately 38 minutes Due to a high probability of clinically significant, life threatening deterioration, the patient required my highest level of preparedness to intervene emergently and I personally spent this critical care time directly and personally managing the patient. This critical care time included obtaining a history; examining the patient; pulse oximetry; ordering and review of studies; arranging urgent treatment with development of a management plan; evaluation of patient's response to treatment; frequent reassessment; and, discussions with other providers. This critical care time was performed to assess and manage the high probability of imminent, life-threatening deterioration that could result in multi-organ failure. It was exclusive of separately billable procedures and treating other patients and teaching time. Please see my other sections and the rest of the note for further information on patient assessment and treatment. Stability Stability form required: No Heart Score Heart Score: Heart Score Response (Comments) Value History Moderate Suspicious 1 EKG Repolarization Disturb 1 Age >65 2 Risk Factors >3 or Hx ASHD 2 Troponin Normal limit 0 Total 6 I personally scribed for ASHLEY LORENZO MD ([email or web address]) on 01/03/25 at 19:05. Electronically submitted by Duane Douglass ([facility] ASHLEY LORENZO MD Jan 03, 2025 19:05
[2025-01-03 19:13] LABS: Chloride 100 mmol/L (98-107); Potassium 4.7 mmol/L (3.5-5.1); Sodium 137 mmol/L (136-145)
[2025-01-03 19:14] LABS: Anion Gap 11 (5-15); Carbon Dioxide 26 mmol/L (20-31)
[2025-01-03 19:15] LABS: Calcium 10.2 mg/dL (8.7-10.4)
[2025-01-03 19:19] LABS: BUN/Creatinine Ratio 35.8 (10.0-20.0)
[2025-01-03 19:22] LABS: Blood Urea Nitrogen 34 mg/dL (9-23); Glucose 227 mg/dL (74-106)
[2025-01-03 19:30] VITALS: PULSE 103; RESP 20; O2SAT 96
--- NOTE | 2025-01-03 20:13 | DVH ---
Procedure: CT HEAD WITHOUT CONTRAST Study Date and Requested Time: 01/03/2025 07:31 PM History: ams, hx of cva Comparison: CT HEAD WITHOUT CONTRAST on DOS: 02/04/23, HEAD WITHOUT CONTRAST on DOS: 10/25/22 Dose: CTDI: 61.18 mGy DLP: 1205.49 mGycm Technique: Multiplanar images obtained through the brain without intravenous contrast. Findings: [id number] diffuse brain atrophy. Severe chronic small-vessel ischemic changes. Bilateral occip ital and right parietal occipital areas of hypodensity which may represent infarct of unknown chronic ity. No hemorrhages, masses, midline shift or herniation. No intra-axial or extra-axial fluid collections . No evidence of hydrocephalus. The basal cisterns are patent. The pituitary gland, sella and parasellar regions are unremarkable. The cerebellar tonsils are in nor mal position. The cerebellum is unremarkable. The orbits and globes are unremarkable. The paranasal sinuses and mastoids are clear. There are no wo rrisome calvarial lesions. Focal areas of left parietal bilateral frontal and vertex scalp thickening /nodularity measuring up to 3.2 cm. Recommend clinical correlation. Impression: Areas of hypodensities involving the bilateral occipital lobes and right occipitoparietal region whic h may represent areas of infarct of unknown chronicity. MRI would be helpful for further evaluation. Severe chronic small-vessel ischemic Changes. Superimposed areas of infarct can not be excluded.
--- NOTE | 2025-01-03 20:14 | DVH ---
CHEST RADIOGRAPH Indication: sob Technique: Single frontal view of the chest was obtained Comparison: XY CHEST XRAY 1 VIEW on DOS: 02/05/23, XY CHEST PORTABLE on DOS: 02/04/23, CXRP on DOS: 10/25 FINDINGS: Lines and Tubes: Right IJ approach port-A-Cath terminating within the right atrium. Lungs: No focal consolidation. The left costophrenic angle is outside the field of view. Pleura: No effusion. No pneumothorax. Cardiomediastinal contours: Unremarkable. Midline sternotomy wires surgical clips are noted consiste nt with prior history of CABG. Bones: No acute osseous abnormality. IMPRESSION: The left costophrenic angle is outside the field of view. Otherwise, No acute cardiopulmonary diseas e. Right IJ Approach port-A-Cath terminating within right atrium.
[2025-01-03 20:31] LABS: Urine Bacteria FEW /hpf (None Seen); Urine Blood 3+ /uL (Negative); Urine Budding Yeast MODERATE /hpf (None Seen); Urine Clarity Ex.Turbid (Clear); Urine Color Light-Orange (Yellow); Urine Hyaline Cast MOD /lpf (0 - 2); Urine Protein, UAD 1+ (Negative); Urine Specific Gravity 1.018 (1.001-1.035); Urine Squamous Epithelial Cell None Seen /hpf (<5); Urine Urobilinogen Normal (Negative); Urine WBC 3404 /HPF (0-3); Urine WBC Clumps PRESENT /hpf (None Seen)
[2025-01-03] MEDS: VANCOMYCIN 1GM/200ML PM 200 ML IV ONE (20:58)
[2025-01-03] MEDS: CEFEPIME 2GM/50ML NS 50 ML IV ONE (22:19)
[2025-01-04] VITALS (8 sets, daily range): BP systolic 98–139; BP diastolic 56–91; PULSE 92–102; RESP 12–22; TEMP 97.9; O2SAT 93–99
[2025-01-04] MEDS ORDERED: DEXTROSE (50%) 50ML SYRG IV PRN
[2025-01-04] MEDS ORDERED: ONDANSETRON HCL 4 MG/2 ML VIAL IV PRN
[2025-01-04] MEDS: ACCU-CHEK COMFORT CURVE STRIP VI SCH (00:10)
[2025-01-04] MEDS: InsuLIN REG 1unit/0.01ml Soln (100units/ml) SC SCH (00:19)
--- NOTE | 2025-01-04 03:57 | DVHHP2 ---
History of Present Illness Reason for Visit: Shortness for breath History of Present Illness 74-year-old male presents for evaluation of shortness for breath. Patient with a history of CVA and seizures is alert and oriented x1 at baseline. Patient was recently discharged two days ago for an [facility] after being admitted and treated for septic shock. Patient was noted to be saturating in the 70s at home. Patient is currently on 3 L nasal cannula oxygen saturating 96%. Past Medical History Chronic kidney disease, AFib, COPD, CVA, diabetes mellitus, dyslipidemia, hypertension, seizures, mi Past Surgical History CABG Family History Noncontributory Smoke: No ALCOHOL: none Drugs: None Lives: with Family Review of Systems Review of Systems Review of systems are currently negative otherwise addressed in HPI. Allergies: Coded Allergies: NO KNOWN ALLERGIES (Unverified , 10/26/22) Medications Current Medications Medications Dose Ordered Sig/Luis A Route Start Time Stop Time Status Last Admin Dose Admin Ceftriaxone Sodium 50 ml @ 100 mls/hr DAILY@09 IV 01/04/25 09:00 Atorvastatin Calcium 20 mg HS PO 01/04/25 22:00 Apixaban 5 mg BID PO 01/04/25 10:00 Albuterol 2.5 mg Q6HPRN PRN NEB 01/04/25 00:00 Diagnostic Test (Pha) 1 strip Q6HR 01/04/25 00:00 01/04/25 00:10 1 STRIP Insulin Human Regular Q6HR SC 01/04/25 00:00 01/04/25 00:19 4 UNITS Dextrose 50 ml UD PRN IV 01/04/25 00:00 Ondansetron HCl 4 mg Q4HP PRN IV 01/04/25 00:00 Exam Vital Signs Vital Signs Date Time Temp Pulse Resp B/P (MAP) Pulse Ox O2 Delivery O2 Flow Rate FiO2 01/04/25 02:00 96 23 110/61 (77) 97 01/04/25 01:00 98.1 98.1 01/04/25 00:57 Nasal Cannula* 3 32 Exam Gen: 74-year-old male in mild distress Skin: Warm, dry, normal color and texture, no rash. HEENT: Normocephalic atraumatic, mucous membranes moist and pink. Neck: Cervical and supraclavicular nodes normal without enlargement, trachea is midline, thyroid gland is normal without masses. Pulmonary: Clear to auscultation and percussion bilaterally. Cardiac: Regular rate and rhythm. No murmur Abdomen: Soft, nontender, nondistended, bowel sounds present all 4 quadrants, no guarding, no rigidity, no organomegaly. Extremities: No cyanosis, clubbing, no edema Neuro: Cranial nerves II through XII grossly intact, normal affect and speech, no focal motor deficits. Labs/Xrays ORDERING PHYSICIAN: ASHLEY BANUELOS MD PROCEDURE(s): CXRP - CHEST PORTABLE REASON: sob ORDER NUMBER(s): [id number], ACCESSION NUMBER(s): [id number] CHEST RADIOGRAPH Indication: sob Technique: Single frontal view of the chest was obtained Comparison: XY CHEST XRAY 1 VIEW on DOS: 02/05/23, XY CHEST PORTABLE on DOS: 02/04/23, CXRP on DOS: 10/25/22 FINDINGS: Lines and Tubes: Right IJ approach port-A-Cath terminating within the right atrium. Lungs: No focal consolidation. The left costophrenic angle is outside the field of view. Pleura: No effusion. No pneumothorax. Cardiomediastinal contours: Unremarkable. Midline sternotomy wires surgical clips are noted consistent with prior history of CABG. Bones: No acute osseous abnormality. IMPRESSION: The left costophrenic angle is outside the field of view. Otherwise, No acute cardiopulmonary disease. Right IJ Approach port-A-Cath terminating within right atrium. RING PHYSICIAN: ASHLEY BANUELOS MD PROCEDURE(s): HWOCT - HEAD WITHOUT CONTRAST REASON: ams, hx of cva ORDER NUMBER(s): [id number], ACCESSION NUMBER(s): [id number] Procedure: CT HEAD WITHOUT CONTRAST Study Date and Requested Time: 01/03/2025 07:31 PM History: ams, hx of cva Comparison: CT HEAD WITHOUT CONTRAST on DOS: 02/04/23, HEAD WITHOUT CONTRAST on DOS: 10/25/22 Dose: CTDI: 61.18 mGy DLP: 1205.49 mGycm Technique: Multiplanar images obtained through the brain without intravenous contrast. Findings: Bzdb-cv-oemiyfed diffuse brain atrophy. Severe chronic small-vessel ischemic changes. Bilateral occipital and right parietal occipital areas of hypodensity which may represent infarct of unknown chronicity. No hemorrhages, masses, midline shift or herniation. No intra-axial or extra- axial fluid collections. No evidence of hydrocephalus. The basal cisterns are patent. The pituitary gland, sella and parasellar regions are unremarkable. The cer ebellar tonsils are in normal position. The cerebellum is unremarkable. The orbits and globes are unremarkable. The paranasal sinuses and mastoids are clear. There are no worrisome calvarial lesions. Focal areas of left parietal bilateral frontal and vertex scalp thickening /nodularity measuring up to 3.2 cm. Recommend clinical correlation. Impression: Areas of hypodensities involving the bilateral occipital lobes and right occipitoparietal region which may represent areas of infarct of unknown chronici ty. MRI would be helpful for further evaluation. Severe chronic small-vessel ischemic Changes. Superimposed areas of infarct can not be excluded. Labs Test 01/04/25 00:55 01/04/25 00:10 01/04/25 00:08 01/03/25 20:00 Range/Units B-Type Natriuretic Peptide 133.43 0-100 pg/mL D-Dimer, Quantitative 0.96 H 0.0-0.49 mg/L FEU POC Glucose 218 H 70-106 mg/dl Urine Color Light-orange Yellow Urine Clarity Ex.turbid Clear Urine pH 6.0 5.0-9.0 Urine Specific [place] 1.018 1.001-1.035 Urine Protein 1+ H Negative Urine Ketones Negative Negative Urine Blood 3+ H Negative /uL Urine Nitrite Negative Negative Urine Bilirubin Negative Negative Urine Urobilinogen Normal Negative mg/dL Urine Leukocyte Esterase 3+ Negative /uL Urine RBC 39 0 - 3 /hpf Urine WBC Clumps Present None Seen /hpf Urine Microscopic WBC 3404 H 0-3 /HPF Urine Squamous Epithelial Cells None seen <5 /hpf Urine Bacteria Few H None Seen /hpf Urine Hyaline Casts Mod 0 - 2 /lpf Urine Yeast (Budding) Moderate None Seen /hpf Urine Glucose Normal Normal mg/dL Test 01/03/25 18:30 Range/Units White Blood Count 6.7 4.4-10.8 10^3/uL Red Blood Count 4.56 4.5-5.90 10^6/uL Hemoglobin 13.9 13.5-17.5 g/dL Hematocrit 42.8 41.0-53.0 % Mean Corpuscular Volume 93.9 80.0-100.0 fL Mean Corpuscular Hemoglobin 30.5 28.0-32.0 pg Mean Corpuscular Hemoglobin Concent 32.5 32.0-36.0 g/dL Red Cell Distribution Width 16.8 H 11.8-14.3 % Platelet Count 351 140-450 10^3/uL Mean Platelet Volume 8.0 6.9-10.8 fL Neutrophils (%) (Auto) 52.1 37.0-80.0 % Lymphocytes (%) (Auto) 32.0 10.0-50.0 % Monocytes (%) (Auto) 12.0 0.0-12.0 % Eosinophils (%) (Auto) 3.4 0.0-7.0 % Basophils (%) (Auto) 0.5 0.0-2.0 % Neutrophils # (Auto) 3.5 1.6-8.6 10 ^3/uL Lymphocytes # (Auto) 2.2 0.4-5.4 10 ^3/uL Monocytes # (Auto) 0.8 0-1.3 10 ^3/uL Eosinophils # (Auto) 0.2 0-0.8 10 ^3/uL Basophils # (Auto) 0 0-0.2 10 ^3/uL Nucleated Red Blood Cells 0.5 % Sodium Level 137 136-145 mmol/L Potassium Level 4.7 3.5-5.1 mmol/L Chloride Level 100 98-107 mmol/L Carbon Dioxide Level 26 20-31 mmol/L Anion Gap 11 5-15 Blood Urea Nitrogen 34 H 9-23 mg/dL Creatinine 0.95 0.700-1.30 mg/dL Glomerular Filtration Rate Calc 83 >90 mL/min BUN/Creatinine Ratio 35.8 H 10.0-20.0 Serum Glucose 227 H 74-106 mg/dL Lactic Acid Level 1.8 0.4-2.0 mmol/L Calcium Level 10.2 8.7-10.4 mg/dL Troponin I High Sensitivity 35 </=54 ng/L Assessment/Plan Assessment/Plan Assessment Acute hypoxic respiratory failure History of CVA History of seizure Metabolic encephalopathy UTI Diabetes mellitus Hypotension Plan Admit the patient to telemetry to the hospitalist Echocardiogram pending CT angiogram pending Resume home medications Continue treatment per orders. Plan discussed with: Other My Orders Orders - JEANE PITTMAN Procedure Category Date Status Time Urine Bacterial BEAU 01/03/25 In Process Culture 23:48 Ceftriaxone 1gm/50ml PHA 01/04/25 In Process D5w (Rocephin) 09:00 Consistent DIET 01/04/25 Transmitted Carb(Ccho)Diabetes Breakfast Atorvastatin (Lipitor) PHA 01/04/25 In Process 22:00 Apixaban (Eliquis) PHA 01/04/25 In Process 10:00 Basic Metabolic Panel LAB 01/04/25 Logged 04:00 Albuterol Medneb PHA 01/04/25 In Process (Ventolin Medneb) 00:00 Glucose Blood PHA 01/04/25 In Process (Accu-Chek Comfort 00:00 Insulin R (Human) PHA 01/04/25 In Process (Insulin R) 00:00 Dextrose 50% Syringe PHA 01/04/25 In Process 00:00 Admit ADMIT 01/03/25 Transmitted 23:48 Ondansetron Hcl PHA 01/04/25 In Process (Zofran) 00:00 Complete Blood Count LAB 01/04/25 Logged 04:00 Cardiac DIET 01/04/25 Transmitted Diet-2gna,Lofat,Lochol Breakfast Echo 2d Mode Cardiac US 01/03/25 Logged DOP 23:48 Condition: Stable HERMES 01/03/25 In Process 23:48 Maintain Bed Rest HERMES 01/03/25 In Process 23:48 Date of Service: Jan 03, 2025 Billing Provider: JEANE PITTMAN Common Visit Codes: [id number] INP/OBS CARE (HIGH) JEANE PITTMAN Jan 04, 2025 03:57
[2025-01-04 09:44] LABS: Basophils # (auto) 0 10 ^3/uL (0-0.2); Basophils % (auto) 0.5 % (0.0-2.0); Eosinophils # (auto) 0.2 10 ^3/uL (0-0.8); Eosinophils % (auto) 2.1 % (0.0-7.0); Hematocrit 37.7 % (41.0-53.0); Hemoglobin 12.7 g/dL (13.5-17.5); Lymphocytes # (auto) 2.8 10 ^3/uL (0.4-5.4); Lymphocytes % (auto) 33.3 % (10.0-50.0); Mean Corpuscular Hemoglobin 30.7 pg (28.0-32.0); Mean Corpuscular Hgb Conc. 33.6 g/dL (32.0-36.0); Mean Corpuscular Volume 91.3 fL (80.0-100.0); Monocytes # (auto) 1.3 10 ^3/uL (0-1.3); Monocytes % (auto) 15.3 % (0.0-12.0); Neutrophils # (auto) 4.1 10 ^3/uL (1.6-8.6); Neutrophils % (auto) 48.8 % (37.0-80.0); Nucleated Red Blood Cells % 0.1 %; Platelet Count (auto) 347 10^3/uL (140-450); Red Blood Cells 4.13 10^6/uL (4.5-5.90); Red Cell Distribution Width 16.2 % (11.8-14.3); White Blood Cell 8.4 10^3/uL (4.4-10.8)
[2025-01-04 09:45] LABS: Chloride 104 mmol/L (98-107); Sodium 137 mmol/L (136-145)
[2025-01-04 09:46] LABS: Anion Gap 10 (5-15); Carbon Dioxide 23 mmol/L (20-31)
[2025-01-04 09:47] LABS: Calcium 10.4 mg/dL (8.7-10.4)
[2025-01-04 09:52] LABS: BUN/Creatinine Ratio 25.7 (10.0-20.0)
[2025-01-04 09:56] LABS: Blood Urea Nitrogen 27 mg/dL (9-23); Glucose 151 mg/dL (74-106)
--- NOTE | 2025-01-04 10:57 | ECG ---
[facility] Test Date: 2025-01-03 Test Time: 18:16:33 Pat Name: PAM MIX Department: ED Room: 0220 Gender: M Line Decorator: JUAN : 1950 Requested By: ASHLEY BANUELOS Order Number: [id number] Reading MD: Liam Shi Measurements Intervals [place] Rate: 111 P: 0 PA: 0 QRS: 80 QRSD: 75 T: -37 QT: 324 QTc: 441 Interpretive Statements Atrial fibrillation Ventricular premature complex Borderline repolarization abnormality Electronically Signed On 01-07-2025 12:51:34 PDT by Liam Shi Please click the below link to view image of tracing.
[2025-01-04] MEDS: APIXABAN 5 MG TAB PO SCH (10:59)
[2025-01-04] MEDS: cefTRIAXone 1GM/50ML D5W 50 ML IV SCH (10:59)
[2025-01-04] MEDS: IOHEXOL 350 MG/ML 100ML IJ ONE (12:51)
--- NOTE | 2025-01-04 12:59 | DVHPNRES ---
Progress Note Date Seen: Jan 04, 2025 Resident Creating Document: MALLORIE SALEEM RESIDENT Medical Necessity Reason Pt with a Central, PICC or Fol: No Subjective Review of Systems This is a 74-year-old male with past medical history of CVA, CKD, AFib, COPD, type 2 diabetes mellitus, dyslipidemia, hypertension, seizure disorder, CAD presented with the ED with a chief complaint of shortness of breath for 1 day prior to this admission. according to the daughter the patient has a history of multiple CVA in last August 2024 and after that she he is alert and oriented x1 at [facility]. patient was recently discharged 2 days ago from [place] after being admitted and treated for septic shock. was noted to be desaturating in home in 70s that prompted this visit. the daughter denied chest pain, abdominal pain, nausea, vomiting, diarrhea, constipation, hematuria, or any change in bowel and bladder habit. Patient was seen and examined on the bedside. He is alert oriented x1. Patient was lying comfortably in the bed and on 2 L oxygen saturation 97%, altered and not able to answer the questions or making any complaints about the symptoms. Review of system could not be assessed as patient is not fully oriented. Objective vital signs Vital Sign Date Time Temp Pulse Resp B/P (MAP) Pulse Ox O2 Delivery O2 Flow Rate FiO2 01/04/25 12:00 104 01/04/25 08:00 22 95 Nasal Cannula* 2 28 01/04/25 08:00 98.3 110/59 (76) 98.3 Total Intake and Output 01/03/25 01/03/25 01/04/25 15:00 23:00 07:00 Intake Total 200 ml 37.5 ml Balance 200 ml 37.5 ml medications Current Medications Medications Dose Ordered Sig/Luis A Route Start Time Stop Time Status Last Admin Dose Admin Ceftriaxone Sodium 50 ml @ 100 mls/hr DAILY@09 IV 01/04/25 09:00 01/04/25 10:59 100 MLS/HR Atorvastatin Calcium 20 mg HS PO 01/04/25 22:00 Apixaban 5 mg BID PO 01/04/25 10:00 01/04/25 10:59 5 MG Albuterol 2.5 mg Q6HPRN PRN NEB 01/04/25 00:00 Diagnostic Test (Pha) 1 strip Q6HR 01/04/25 00:00 01/04/25 12:47 1 STRIP Insulin Human Regular Q6HR SC 01/04/25 00:00 01/04/25 12:42 3 UNITS Dextrose 50 ml UD PRN IV 01/04/25 00:00 Ondansetron HCl 4 mg Q4HP PRN IV 01/04/25 00:00 Ipratropium [place] 0.5 mg Q6HPRN PRN NEB 01/04/25 09:00 Examination Physical examination: General Appearance: Alert, Oriented X1, Cooperative, Mild distress HEENT: Atraumatic, PERRLA, EOMI, Mucous membrane moist/pink Respiratory: Clear to auscultation, Normal air movement Cardiovascular: Irregular rate, Normal S1, Normal S2, No murmurs, no chest wall tenderness Abdominal: Normal bowel sounds, Soft, No tenderness, No hepatospenomegaly, No masses Extremities: No clubbing, No cyanosis, No edema, Normal pulses, No tenderness/swelling Skin: No rashes, No breakdown, No significant lesion Neuro: Bed bound, Normal speech, Strength at 4/5 X4 ext, Normal tone, Sensation intact, grossly intact cranial nerves. Psych/Mental Status: Mental status NL, Mood NL laboratory and microbiology Laboratory Tests 01/04/25 09:20 Test 01/04/25 09:20 Range/Units Serum Glucose 151 H 74-106 mg/dL Labs and/or images reviewed: Labs reviewed by me, Image(s) reviewed by me Problem List/Assessment/Plan Problem List/Assessment/Plan Assessment and plan: # Acute hypoxic respiratory failure likely due to pulmonary embolism - Patient was initially on 6 L oxygen and now titrated down to 2 L oxygen with saturation 97% - History of mobilization and the patient was presented with tachycardia - Well's score for pulmonary embolism is 6 - D-dimer elevated - Pending CT angio of the chest - Albuterol and ipratropium q.6 p.r.n. # Persistent atrial fibrillation with secondary hypercoagulable state # History of multiple strokes # History of CAD # Chronic systolic heart failure with reduced ejection fraction # Acute hypotension - CT head without IV contrast demonstrated Areas of hypodensities involving the bilateral occipital lobes and right occipitoparietal region which may represent areas of infarct of unknown chronicity. Severe chronic small-vessel ischemic Changes. Superimposed areas of infarct -[id number] score 8 - Aspirin 81 mg daily and Eliquis 5 mg b.i.d. - Echo on 2021 demonstrated EF 35-40% and patient was on GDM T - GDM T because of the hypotension - Atorvastatin 20 mg p.o. at HS # Acute complicated UTI - U/A was consistent with UTI - Ordered urine bacterial culture - IV ertapenem 1 g daily # Type 2 diabetes mellitus, hemoglobin A1c 6.2 - Mild sliding scale of insulin # DVT prophylaxis - Patient is on Eliquis # PUD prophylaxis - Protonix 40 mg p.o. daily Goal of care discussed with the patient for more than 20 minutes full code Plan discussed with Dr. Singh Plan discussed with: Patient, Other My Orders My Orders Orders - MALLORIE SALEEM Procedure Category Date Status Time Vitamin B12 LAB 01/04/25 In Process 08:45 Vitamin D, 25-Hydroxy LAB 01/04/25 In Process 08:45 Ipratropium Medneb PHA 01/04/25 In Process (Atrovent Medneb) 09:00 Date of Service: Jan 04, 2025 Billing Provider: ARNULFO SINGH MD Common Visit Codes: [id number] INP/OBS CARE(HIGH) MALLOIRE SALEEM Jan 04, 2025 12:59 ARNULFO SINGH MD Jan 05, 2025 11:30
[2025-01-04] MEDS: ERTAPENEM SOD INJ 1 GM in SODIUM CHL 0.9% 50 ML IV ONE (14:40)
--- NOTE | 2025-01-04 15:18 | DVH ---
CTA Chest with intravenous contrast INDICATION: r/o pe COMPARISON: CT 02/08/2023 TECHNIQUE: Multidetector spiral CTA of the chest was performed of the chest with intravenous contrast . PULMONARY ANGIOGRAPHY PROTOCOL was utilized using a bolus-tracking technique centered on the main p ulmonary artery. Axial, coronal and sagittal multiplanar and MIP reformats were performed. Radiation Dose : 1. Chest: CTDI volume is 29.57 mGy. Dose-length product is 858.11 mGy*cm The dose indicators for CT are the volume Computed Tomography (CT) Dose Index (CTDIvol) and the Dose Length Product (DLP), and are measured in units of mGy and mGy-cm, respectively. These indicators are not patient dose, but values generated from the CT scanner acquisition factors. The report includes radiation exposure data for exposures received during this examination. Findings: Pulmonary artery: No large central or large segmental pulmonary embolism. Lower neck: Normal thyroid. Lungs and Pleura: Mild nodular opacities noted in the left lower lobe. No pneumothorax. No pleural ef fusion. Heart/Vascular Structures: Normal heart size. No pericardial effusion. Coronary artery calcifications . Right chest wall port terminates in the right atrium. Mild atherosclerotic calcifications of the ao rta and its branches. Lymph Nodes: No adenopathy Musculoskeletal: Destructive endplate changes noted at C6-7 with paravertebral soft tissue swelling, new when compared to 02/08/23. Median sternotomy wires. Chest wall: Normal. Upper abdomen: Limited portions of the upper abdomen are unremarkable. IMPRESSION: 1. No central pulmonary embolism. 2. Destructive endplate changes noted at C6-7 with paravertebral soft tissue swelling, new when catrachito red to 02/08/23. Findings are concerning for possible discitis/osteomyelitis. Recommend MRI cervical spine with contrast for further evaluation. 3. Mild nodular opacities noted in the left lower lobe, could represent bronchiolitis of infectious o r inflammatory etiology.
[2025-01-04] MEDS: ATORVASTATIN 20 MG TAB PO SCH (22:24)
[2025-01-05] VITALS (11 sets, daily range): BP systolic 122–139; BP diastolic 65–70; PULSE 81–96; RESP 16–20; TEMP 97.3–98.2; O2SAT 92–98
[2025-01-05] MEDS: ALBUTEROL SULF 2.5 MG/0.5ML(0.5%) NEB SOLN NEB PRN (00:13)
[2025-01-05] MEDS: IPRATROPIUM BROM 0.5 MG/2.5ML INH SOL NEB PRN (00:13)
[2025-01-05] MEDS: PANTOPRAZOLE 40 MG TAB PO SCH (05:35)
[2025-01-05] MEDS: ERTAPENEM SOD INJ 1 GM in SODIUM CHL 0.9% 50 ML IV SCH (09:40)
[2025-01-05] MEDS ORDERED: VANCOMYCIN PER PHARMACY 0 MG IV SCH (14:45)
--- NOTE | 2025-01-05 15:41 | DVHPNRES ---
Progress Note Date Seen: Jan 05, 2025 Resident Creating Document: MALLORIE SALEEM RESIDENT Medical Necessity Reason Pt with a Central, PICC or Fol: No Subjective Review of Systems Patient was seen and examined on the bedside. He is alert, and oriented x1. Complaint of neck pain and abdominal pain. No other active complaint. Objective vital signs Vital Sign Date Time Temp Pulse Resp B/P (MAP) Pulse Ox O2 Delivery O2 Flow Rate FiO2 01/05/25 09:00 97.9 90 20 133/65 (87) 92 97.9 01/05/25 08:00 Nasal Cannula* 2 28 Total Intake and Output 01/04/25 01/04/25 01/05/25 15:00 23:00 07:00 Intake Total 50 ml 50 ml Output Total 250 ml Balance 50 ml -200 ml medications Current Medications Medications Dose Ordered Sig/Luis A Route Start Time Stop Time Status Last Admin Dose Admin Atorvastatin Calcium 20 mg HS PO 01/04/25 22:00 01/04/25 22:24 20 MG Apixaban 5 mg BID PO 01/04/25 10:00 01/05/25 09:41 5 MG Albuterol 2.5 mg Q6HPRN PRN NEB 01/04/25 00:00 01/05/25 00:13 2.5 MG Diagnostic Test (Pha) 1 strip Q6HR 01/04/25 00:00 01/05/25 11:31 1 STRIP Insulin Human Regular Q6HR SC 01/04/25 00:00 01/05/25 11:35 3 UNITS Dextrose 50 ml UD PRN IV 01/04/25 00:00 Ondansetron HCl 4 mg Q4HP PRN IV 01/04/25 00:00 Ipratropium [place] 0.5 mg Q6HPRN PRN NEB 01/04/25 09:00 01/05/25 00:13 0.5 MG Ertapenem 1 gm/ Sodium Chloride 50 ml @ 100 mls/hr DAILY IV 01/05/25 10:00 01/05/25 09:40 100 MLS/HR Pantoprazole Sodium 40 mg DAILY@0600 PO 01/05/25 06:00 01/05/25 05:35 40 MG Vancomycin HCl 0 ml @ 0 mls/hr UD IV 01/05/25 14:45 UNV Examination Physical examination: General Appearance: Alert, Oriented X1, Cooperative, Mild distress HEENT: Atraumatic, PERRLA, EOMI, Mucous membrane moist/pink Respiratory: Clear to auscultation, Normal air movement Cardiovascular: Irregular rate, Normal S1, Normal S2, No murmurs, no chest wall tenderness Abdominal: Normal bowel sounds, Soft, No tenderness, No hepatospenomegaly, No masses Extremities: No clubbing, No cyanosis, No edema, Normal pulses, No tenderness/swelling Skin: No rashes, No breakdown, No significant lesion Neuro: Bed bound, Normal speech, Strength at 4/5 X4 ext, Normal tone, Sensation intact, grossly intact cranial nerves. Psych/Mental Status: Mental status NL, Mood NL laboratory and microbiology Laboratory Tests 01/04/25 09:20 Test 01/04/25 09:20 Range/Units Serum Glucose 151 H 74-106 mg/dL Microbiology Date/Time Source Procedure Growth Status 01/03/25 20:00 Voided Urine Urine Culture - Preliminary Resulted 01/03/25 18:40 Blood Blood Culture - Preliminary NO GROWTH AFTER 24 HOURS OF INCUBATION. Resulted Labs and/or images reviewed: Labs reviewed by me, Image(s) reviewed by me Problem List/Assessment/Plan Problem List/Assessment/Plan Assessment and plan: # Possible osteomyelitis in the cervical spine - Destructive endplate changes noted at C6-7 with paravertebral soft tissue swelling, new when compared to 02/08/23. Findings are concerning for possible discitis/osteomyelitis - ESR is 91 and CRP is 3.97 - ordered MRI of the cervical spine without contrast - IV vancomycin as per pharmacy - Preliminary blood culture demonstrated no growth in 24 hours - consulted spine surgeon Dr. Camargo # Acute hypoxic respiratory failure likely due to pulmonary embolism - Patient was initially on 6 L oxygen and now titrated down to 2 L oxygen with saturation 97% - History of mobilization and the patient was presented with tachycardia - Well's score for pulmonary embolism is 6 - D-dimer elevated - CT angio ruled out PE. - Albuterol and ipratropium q.6 p.r.n. # Persistent atrial fibrillation with secondary hypercoagulable state # History of multiple strokes # History of CAD # Chronic systolic heart failure with improved ejection fraction # Acute hypotension - CT head without IV contrast demonstrated Areas of hypodensities involving the bilateral occipital lobes and right occipitoparietal region which may represent areas of infarct of unknown chronicity. Severe chronic small-vessel ischemic Changes. Superimposed areas of infarct -FRCC3DGFb score 8 - Aspirin 81 mg daily and Eliquis 5 mg b.i.d. - Echo consulted EF 50% - Hold GDMT because of the hypotension - Atorvastatin 20 mg p.o. at HS # Acute complicated UTI - U/A was consistent with UTI - Ordered urine bacterial culture - IV ertapenem 1 g daily # Type 2 diabetes mellitus, hemoglobin A1c 6.2 - Mild sliding scale of insulin # DVT prophylaxis - Patient is on Eliquis # PUD prophylaxis - Protonix 40 mg p.o. daily Goal of care discussed with the patient for more than 20 minutes full code Plan discussed with Dr. Ash Plan discussed with: Patient, Other My Orders My Orders Orders - MALLORIE SALEEM Procedure Category Date Status Time C-Reactive Protein LAB 01/05/25 Logged 14:43 Erythrocyte LAB 01/05/25 Logged Sedimentation Rate 14:43 Thoracic Spine With MRI 01/05/25 Logged 14:43 Vancomycin Per PHA 01/05/25 Logged Pharmacy 14:45 ConsultdrJose Dubois CONS 01/05/25 Transmitted [place](Spine) 14:57 Dietary Evaluation Review Comments: 1. TF glucerna 50ml/hr providing 72 gProtwin, 1440 kcal, supporting 100% protwin needs and 81% energy needs. 2. Follow CCHO-60 diet, when medically feasible.and passing MOLD PRESS OPERATOR eval. Expected Outcomes/Goals: Controlled DM, healed wounds Date of Service: Jan 05, 2025 Billing Provider: JOANA ASH MD Common Visit Codes: [id number] INP/OBS CARE(HIGH) MALLORIE SALEEM RESIDENT Jan 05, 2025 15:40 JOANA ASH MD Jan 06, 2025 20:53
--- NOTE | 2025-01-05 15:51 | DVHINCON2 ---
Consultation - Spinal Surgery Date Seen: Jan 05, 2025 Referring Physician Referring Physician Attending Doctor: Dahlia Leigh Resident Reason for Consultation Reason for Visit: Shortness for breath History of Present Illness History of Present Illness History of Present Illness 74-year-old male presents for evaluation of shortness for breath. Patient with a history of CVA and seizures is alert and oriented x1 at baseline. Patient was recently discharged two days ago for an [place] after being admitted and treated for septic shock. Patient was noted to be saturating in the 70s at home. Patient is currently on 3 L nasal cannula oxygen saturating 96%. Past Medical/Surgical History Past Medical/Surgical History Past Medical History Chronic kidney disease, AFib, COPD, CVA, diabetes mellitus, dyslipidemia, hypertension, seizures, mi Past Surgical History CABG Family and Social History Family and Social History Family History Noncontributory Smoke: No ALCOHOL: none Drugs: None Lives: with Family Allergies and medications Allergies: Coded Allergies: NO KNOWN ALLERGIES (Unverified , 10/26/22) Home Meds Active Scripts Linagliptin Base (TRADJENTA) 5 Mg Tab, 1 TAB PO DAILY, #90 TAB 1 Refill Prov:SOLIS NIEVES MD 10/29/22 Pantoprazole Sodium Sesquihydr (Protonix) 40 Mg Tab, 40 MG PO BID, #60 TAB Prov:LEVI GALLOWAY MD 05/14/20 Reported Medications Risperidone (Risperidone) 0.5 Mg Tab, 1 TAB PO BID PRN for AGITATION, #60 TAB 1 Refill 01/06/25 Ondansetron HCl (Ondansetron Hydrochloride) 4 Mg Tab, 4 MG PO Q6HP PRN for NAUSEA / VOMITING, TAB 01/06/25 Olanzapine (OLANZAPINE) 2.5 Mg Tab, 2.5 MG PO HS for 30 Days, MG 01/06/25 Lidocaine (Lidocaine Patch 5%) 5 % Pad, 1 PATCH TOP DAILY, PAD 01/06/25 Levetiracetam (LEVETIRACETAM ER) 750 Mg Tab, 750 MG PO BID, TAB 01/06/25 Furosemide (Furosemide) 40 Mg Tab, 40 MG PO DAILY for 30 Days 02/06/23 Sacubitril-Valsartan (Entresto 24-26 mg) Unknown Strength Tab, 1 TAB PO BID, TAB 12/12/22 Aspirin (Aspir-Low) 81 Mg Tab, 81 MG PO DAILY for 30 Days, MG 12/12/22 Sitagliptin Phosphate (Januvia) Unknown Strength Tab, PO DAILY, #30 TAB 5 Refills 12/12/22 Insulin Glargine (Lantus) 100 Unit/Ml Inj, 100 UNIT SC, INJ 12/12/22 Insulin Lispro (Human) (Humalog) 100 Unit/Ml Inj, 100 UNIT SC, INJ 12/12/22 Fluticasone Propionate (FLOVENT HFA 110Mcg INH) 110 Mcg Ih, 2 PUFF INH Q12HR, MCG 05/12/20 Hydrocodone-Acetaminophen ([place] 7.5-325 mg) 1 Tab Tab, 1 TAB PO BIDP PRN for PAIN, TAB 05/12/20 Carvedilol (Carvedilol) 12.5 Mg Tab, 6.25 MG PO Q12HR for 30 Days, MG QAM, TAKE CARVEDILOL 12.5 MG TAB WITH CARVEDILOL 25 MG TAB. QPM, TAKE CARVEDILOL 12.5 MG TAB ONLY 05/12/20 Gabapentin (Gabapentin) 600 Mg Tab, 600 MG PO BID for 30 Days, MG 05/12/20 Atorvastatin Calcium (ATORVASTATIN CALCIUM) 20 Mg Tab, 40 MG PO QPM, #30 TAB 5 Refills 02/16/17 Albuterol Sulfate (Ventolin Hfa) Aer, 2 PUFF IN BIDP PRN for SHORTNESS OF BREATH, AER 02/16/17 Review of systems Review of Systems: HEENT:Abnormal (Patient at baseline, wearing helmet with rafa wrap under. patient stated he has had skull surgery of some sort. Helmet use usually indicated a craniotomy has been preformed. pt a poor historian), CVS:Normal, RESPIRATORY:Abnormal (shortness of breath ), GI:Normal, :Normal, MSK:Normal, NEURO:Abnormal (cva hx, base line oriented to self) Examination Vital signs Imaging MRI c spine pending CTA Chest with intravenous contrast INDICATION: r/o pe COMPARISON: CT 02/08/2023 TECHNIQUE: Multidetector spiral CTA of the chest was performed of the chest with intravenous contrast. PULMONARY ANGIOGRAPHY PROTOCOL was utilized using a bolus- tracking technique centered on the main pulmonary artery. Axial, coronal and sagittal multiplanar and MIP reformats were performed. Radiation Dose : 1. Chest: CTDI volume is 29.57 mGy. Dose-length product is 858.11 mGy*cm The dose indicators for CT are the volume Computed Tomography (CT) Dose Index (CTDIvol) and the Dose Length Product (DLP), and are measured in units of mGy and mGy-cm, respectively. These indicators are not patient dose, but values generated from the CT scanner acquisition factors. The report includes radiation exposure data for exposures received during this examination. Findings: Pulmonary artery: No large central or large segmental pulmonary embolism. Lower neck: Normal thyroid. Lungs and Pleura: Mild nodular opacities noted in the left lower lobe. No pneumothorax. No pleural effusion. Heart/Vascular Structures: Normal heart size. No pericardial effusion. Coronary artery calcifications. Right chest wall port terminates in the right atrium. Mild atherosclerotic calcifications of the aorta and its branches. Lymph Nodes: No adenopathy Musculoskeletal: Destructive endplate changes noted at C6-7 with paravertebral soft tissue swelling, new when compared to 02/08/23. Median sternotomy wires. Chest wall: Normal. Upper abdomen: Limited portions of the upper abdomen are unremarkable. IMPRESSION: 1. No central pulmonary embolism. 2. Destructive endplate changes noted at C6-7 with paravertebral soft tissue swelling, new when compared to 02/08/23. Findings are concerning for possible discitis/osteomyelitis. Recommend MRI cervical spine with contrast for further evaluation. 3. Mild nodular opacities noted in the left lower lobe, could represent bronch iolitis of infectious or inflammatory etiology. Vital Signs Date Time Temp Pulse Resp B/P (MAP) Pulse Ox O2 Delivery O2 Flow Rate FiO2 01/05/25 09:00 97.9 90 20 133/65 (87) 92 97.9 01/05/25 08:00 Nasal Cannula* 2 28 Medications Current Medications Medications (Trade) Dose Ordered Sig/Luis A Route PRN Reason Start Time Stop Time Status Last Admin Atorvastatin Calcium (Lipitor) 20 mg HS PO 01/04/25 22:00 01/04/25 22:24 Ertapenem 1 gm/ Sodium Chloride 50 ml @ 100 mls/hr DAILY IV 01/05/25 10:00 01/05/25 09:40 Pantoprazole Sodium (Protonix Tablet) 40 mg DAILY@0600 PO 01/05/25 06:00 01/05/25 05:35 Vancomycin HCl 0 ml @ 0 mls/hr UD IV 01/05/25 14:45 UNV Laboratory Labs Test 01/05/25 11:28 01/04/25 09:20 01/04/25 00:55 01/04/25 00:10 Range/Units POC Glucose 171 H 70-106 mg/dl White Blood Count 8.4 # 4.4-10.8 10^3/uL Red Blood Count 4.13 L 4.5-5.90 10^6/uL Hemoglobin 12.7 L 13.5-17.5 g/dL Hematocrit 37.7 #L 41.0-53.0 % Mean Corpuscular Volume 91.3 80.0-100.0 fL Mean Corpuscular Hemoglobin 30.7 28.0-32.0 pg Mean Corpuscular Hemoglobin Concent 33.6 32.0-36.0 g/dL Red Cell Distribution Width 16.2 H 11.8-14.3 % Platelet Count 347 140-450 10^3/uL Mean Platelet Volume 8.0 6.9-10.8 fL Neutrophils (%) (Auto) 48.8 37.0-80.0 % Lymphocytes (%) (Auto) 33.3 10.0-50.0 % Monocytes (%) (Auto) 15.3 H 0.0-12.0 % Eosinophils (%) (Auto) 2.1 0.0-7.0 % Basophils (%) (Auto) 0.5 0.0-2.0 % Neutrophils # (Auto) 4.1 1.6-8.6 10 ^3/uL Lymphocytes # (Auto) 2.8 0.4-5.4 10 ^3/uL Monocytes # (Auto) 1.3 0-1.3 10 ^3/uL Eosinophils # (Auto) 0.2 0-0.8 10 ^3/uL Basophils # (Auto) 0 0-0.2 10 ^3/uL Nucleated Red Blood Cells 0.1 % Sodium Level 137 136-145 mmol/L Potassium Level 4.0 3.5-5.1 mmol/L Chloride Level 104 98-107 mmol/L Carbon Dioxide Level 23 20-31 mmol/L Anion Gap 10 5-15 Blood Urea Nitrogen 27 H 9-23 mg/dL Creatinine 1.05 0.700-1.30 mg/dL Glomerular Filtration Rate Calc 74 >90 mL/min BUN/Creatinine Ratio 25.7 H 10.0-20.0 Serum Glucose 151 H 74-106 mg/dL Calcium Level 10.4 8.7-10.4 mg/dL Ammonia 12 11-32 umol/L Thyroid Stimulating Hormone (TSH) 1.99 0.55-4.78 uIU/mL Hemoglobin A1c 6.2 H <5.7 % A1C B-Type Natriuretic Peptide 133.43 0-100 pg/mL Vitamin B12 Level 993 H 211-911 pg/mL Vitamin D 25-Hydroxy 65.6 30.0-100 ng/mL D-Dimer, Quantitative 0.96 H 0.0-0.49 mg/L FEU Test 01/03/25 20:00 01/03/25 18:30 Range/Units Urine Color Light-orange Yellow Urine Clarity Ex.turbid Clear Urine pH 6.0 5.0-9.0 Urine Specific [place] 1.018 1.001-1.035 Urine Protein 1+ H Negative Urine Ketones Negative Negative Urine Blood 3+ H Negative /uL Urine Nitrite Negative Negative Urine Bilirubin Negative Negative Urine Urobilinogen Normal Negative mg/dL Urine Leukocyte Esterase 3+ Negative /uL Urine RBC 39 0 - 3 /hpf Urine WBC Clumps Present None Seen /hpf Urine Microscopic WBC 3404 H 0-3 /HPF Urine Squamous Epithelial Cells None seen <5 /hpf Urine Bacteria Few H None Seen /hpf Urine Hyaline Casts Mod 0 - 2 /lpf Urine Yeast (Budding) Moderate None Seen /hpf Urine Glucose Normal Normal mg/dL Lactic Acid Level 1.8 0.4-2.0 mmol/L Troponin I High Sensitivity 35 </=54 ng/L Microbiology Date/Time Source Procedure Growth Status 01/03/25 20:00 Voided Urine Urine Culture - Preliminary Resulted 01/03/25 18:40 Blood Blood Culture - Preliminary NO GROWTH AFTER 24 HOURS OF INCUBATION. Resulted Examination: GENERAL:Abnormal (helemt, slow to respond- but able to respond rationally, cooperative), HEENT:Abnormal (helmet required for some sort of skull surgery patiemnt is unsure), NECK:Abnormal (neck pain, shoulder pain inability to move fingers,ot lift arms.), LUNGS:Abnormal (o2 dependent), CVS:Abnormal (afib HTN), ABDOMEN:Normal, MSK:Abnormal (waek to all extremities), SKIN:Abnormal, NEURO:Abnormal (at base line x 1 CALDER[place] independently. limited ROM), :Normal Problem List/Assessment/Plan Problems: (1) Muscle spasms of neck (2) Cervical stenosis of spinal canal (3) Abscess in epidural space of cervical spine Assessment and Plan ADDENDUM 01/06/2025 UPON REVIEW OF THE MRI RESULTS OF THE CERVICAL SPINE IT IS RECOMMENDED THAT THE PATIENT BE TRANSFERRED TO A HIGHER LEVEL OF CARE/[facility] FOR NEUROSURGICAL CONSULT THIS PATIENT WILL NEED CERVICAL SPINE INTERVENTION WHICH WILL INCLUDE ANTERIOR AND POSTERIOR SURGERIES, POSSIBLE CORPECTOMY, CONCERN FOR INEFFECTIVE ABSCESS IN THE EPIDURAL SPACE OF THE CERVICAL SPINE, WHICH WE ARE NOT EQUIPPED TO DO HERE IN THIS AREA. THIS IS AN URGENT MATTER AND THE PATIENT SHOULD BE TRANSFERRED SOON POSSIBLE CTA Chest with intravenous contrast - finding of destructive endplate changes noted at C6-7 with paravertebral soft tissue swelling, new when compared to 02/08/23. Findings are concerning for possible discitis/osteomyelitis. Recommend MRI cervical spine with contrast for further evaluation. Dedicated MRI of the c-spine ordered further spine recommendations when studies are completed Continue supportive care and treatment per admitting team's discretion PT evaluation and treatment recommendations recommend infectious disease consult- if MRI results indicate discitis/osteomyelitis Recommended inflammatory markers to be drawn such as sed rate, C-reactive protein patient need to be metabolically optimized as a priority Call with questions Hilario Caldwell [facility] Orthopaedic Spine Surgery nurse practitioner For Dr Jessica Mello Patient was examined, chart reviewed, labs evaluated, and diagnostic studies and findings analyzed. Case was discussed with Dr. Silvino Mello who formulated the plan of care. This medical document was created using an electronic medical record system with [employer] dictation system. Although this document has been carefully reviewed, there might still be some phonetic and typographical errors. These areas are purely typographical due to imperfections of the software programs, and do not reflect any compromise in the patient's medical care. Plan discussed with Plan discussed with: Patient, Other ([place] cardenas [id number] no answer @ 16:47, 17:03) VENKATA CALDWELL NP Jan 05, 2025 15:51
[2025-01-05 16:55] LABS: Erythrocyte Sedimentation Rate 91 mm/hr (0-20)
--- NOTE | 2025-01-05 17:51 | DVHSR ---
APPROVED REPORT EXAM: Two-dimensional and M-mode echocardiogram with Doppler and color Doppler. Blood Pressure: 131/66 mmHg INDICATION EF RISK FACTORS Height: 5'8", Weight: 157 DIMENSIONS LVDd4.1 (3.8-5.7cm)LA (2D)3.9 (1.9-4.0cm)Aortic Root3.9 (2.0-3.7cm) LVDs3.0 (2.5-4.0cm)LA (MM) (1.9-4.0cm)Aortic Cusp Exc1.7 (1.5-2.0cm) EF (%) 50.0 (55-70%)Rt. Atrium3.3 (1.9-4.0cm)Asc. Aorta cm IVSd1.0 (0.7-1.1cm)RV (D) (1.8-2.4cm) PWd1.0 (0.7-1.1cm) Mitral Valve MitralMitral Stenosis E wave0.76m/sMV Mean GR.mmHg E/A ratio0.02D MVAcm2 Aortic Valve Aortic ValveAortic Stenosis V10.62m/Iraida Mean GR.2mmHg V20.85m/Iraida Peak GR.3mmHg LVOT Diameter2.2 (1.8-2.4cm)Doppler AVA2.77cm2 Other Information Quality : LimitedRhythm : Technically limited study due to body habitus, patient position. Patient altered and uncooperative. Conclusion lvef 50% hypokinesis of septum mild LVH RV enlarged no severe valve abnormaliteis noted limited study
[2025-01-05] MEDS: VANCOMYCIN 1.5GM/250ML 250 ML IV ONE (18:24)
[2025-01-06] VITALS (8 sets, daily range): BP systolic 103–142; BP diastolic 68–76; PULSE 80–91; RESP 16–20; TEMP 97–98.8; O2SAT 92–93
[2025-01-06 07:32] LABS: Basophils # (auto) 0.1 10 ^3/uL (0-0.2); Basophils % (auto) 0.7 % (0.0-2.0); Eosinophils # (auto) 0.2 10 ^3/uL (0-0.8); Eosinophils % (auto) 2.3 % (0.0-7.0); Hematocrit 35.5 % (41.0-53.0); Lymphocytes # (auto) 3.1 10 ^3/uL (0.4-5.4); Lymphocytes % (auto) 39.2 % (10.0-50.0); Mean Corpuscular Hemoglobin 30.4 pg (28.0-32.0); Mean Corpuscular Hgb Conc. 33.7 g/dL (32.0-36.0); Neutrophils # (auto) 3.7 10 ^3/uL (1.6-8.6); Neutrophils % (auto) 45.8 % (37.0-80.0); Nucleated Red Blood Cells % 0.2 %; Platelet Count (auto) 359 10^3/uL (140-450); Red Blood Cells 3.94 10^6/uL (4.5-5.90); Red Cell Distribution Width 16.5 % (11.8-14.3)
--- NOTE | 2025-01-06 10:30 | DVHPNRES ---
Progress Note Date Seen: Jan 06, 2025 Resident Creating Document: MALLORIE SALEEM RESIDENT Medical Necessity Reason Pt with a Central, PICC or Fol: No Subjective Review of Systems The patient was seen and examined on the bedside. He is A&O x1. No overnight events and complaint of neck pain. No other active complaint this time. Objective vital signs Vital Sign Date Time Temp Pulse Resp B/P (MAP) Pulse Ox O2 Delivery O2 Flow Rate FiO2 01/06/25 09:20 92 Room Air 0.0 01/06/25 09:20 21 01/06/25 09:00 97.8 83 16 121/68 (85) 97.8 Total Intake and Output 01/05/25 01/05/25 01/06/25 15:00 23:00 07:00 Intake Total 50 ml 505 ml 175 ml Output Total 100 ml 225 ml Balance 50 ml 405 ml -50 ml medications Current Medications Medications Dose Ordered Sig/Luis A Route Start Time Stop Time Status Last Admin Dose Admin Atorvastatin Calcium 20 mg HS PO 01/04/25 22:00 01/05/25 22:12 20 MG Apixaban 5 mg BID PO 01/04/25 10:00 01/06/25 09:18 5 MG Albuterol 2.5 mg Q6HPRN PRN NEB 01/04/25 00:00 01/05/25 00:13 2.5 MG Diagnostic Test (Pha) 1 strip Q6HR 01/04/25 00:00 01/06/25 05:06 1 STRIP Insulin Human Regular Q6HR SC 01/04/25 00:00 01/06/25 00:05 2 UNITS Dextrose 50 ml UD PRN IV 01/04/25 00:00 Ondansetron HCl 4 mg Q4HP PRN IV 01/04/25 00:00 Ipratropium [place] 0.5 mg Q6HPRN PRN NEB 01/04/25 09:00 01/05/25 00:13 0.5 MG Ertapenem 1 gm/ Sodium Chloride 50 ml @ 100 mls/hr DAILY IV 01/05/25 10:00 01/06/25 09:18 100 MLS/HR Pantoprazole Sodium 40 mg DAILY@0600 PO 01/05/25 06:00 01/06/25 05:05 40 MG Vancomycin HCl 0 ml @ 0 mls/hr UD IV 01/05/25 14:45 Examination Physical examination: General Appearance: Alert, Oriented X1, Cooperative, Mild distress HEENT: Atraumatic, PERRLA, EOMI, Mucous membrane moist/pink Respiratory: Clear to auscultation, Normal air movement Cardiovascular: Irregular rate, Normal S1, Normal S2, No murmurs, no chest wall tenderness Abdominal: Normal bowel sounds, Soft, No tenderness, No hepatospenomegaly, No masses Extremities: No clubbing, No cyanosis, No edema, Normal pulses, No tenderness/swelling Skin: No rashes, No breakdown, No significant lesion Neuro: Bed bound, Normal speech, Strength at 4/5 X4 ext, Normal tone, Sensation intact, grossly intact cranial nerves. Psych/Mental Status: Mental status NL, Mood NL laboratory and microbiology Laboratory Tests 01/06/25 06:18 01/04/25 09:20 Test 01/04/25 09:20 Range/Units Serum Glucose 151 H 74-106 mg/dL Microbiology Date/Time Source Procedure Growth Status 01/03/25 20:00 Voided Urine Urine Culture - Preliminary Resulted 01/03/25 18:40 Blood Blood Culture - Preliminary NO GROWTH AFTER 48 HOURS OF INCUBATION. Resulted Labs and/or images reviewed: Labs reviewed by me, Image(s) reviewed by me Problem List/Assessment/Plan Problem List/Assessment/Plan Assessment and plan: # Possible osteomyelitis in the cervical spine - Destructive endplate changes noted at C6-7 with paravertebral soft tissue swelling, new when compared to 02/08/23. Findings are concerning for possible discitis/osteomyelitis - ESR is 91 and CRP is 3.97 - MRI of cervical spine demonstrated evidence of acute spondylodiscitis at C6-C7 with extensive prevertebral and paraspinal edema. Small prevertebral abscess anterior to C7 vertebral body can not be ruled out. Evaluation is markedly limited without IV contrast. In addition, there is evidence of adjacent paraspinal myositis. Edema noted in the inner spinous space/ligament with no definite fluid collection. - IV vancomycin as per pharmacy - Preliminary blood culture demonstrated no growth in 24 hours - Spine surgeon on board # Acute hypoxic respiratory failure likely due to pulmonary embolism - Patient was initially on 6 L oxygen and now titrated down to 2 L oxygen with saturation 97% - History of mobilization and the patient was presented with tachycardia - Well's score for pulmonary embolism is 6 - D-dimer elevated - CT angio ruled out PE. - Albuterol and ipratropium q.6 p.r.n. # Persistent atrial fibrillation with secondary hypercoagulable state # History of multiple strokes # History of CAD # Chronic systolic heart failure with improved ejection fraction # Acute hypotension - CT head without IV contrast demonstrated Areas of hypodensities involving the bilateral occipital lobes and right occipitoparietal region which may represent areas of infarct of unknown chronicity. Severe chronic small-vessel ischemic Changes. Superimposed areas of infarct -[id number] score 8 - Aspirin 81 mg daily and Eliquis 5 mg b.i.d. - Echo consulted EF 50% - Hold GDMT because of the hypotension - Atorvastatin 20 mg p.o. at HS # Acute complicated UTI - U/A was consistent with UTI - Ordered urine bacterial culture - IV ertapenem 1 g daily # Type 2 diabetes mellitus, hemoglobin A1c 6.2 - Mild sliding scale of insulin # DVT prophylaxis - Patient is on Eliquis # PUD prophylaxis - Protonix 40 mg p.o. daily Goal of care discussed with the patient for more than 20 minutes full code Plan discussed with Dr. Ash Plan discussed with: Patient, Other My Orders My Orders Orders - MALLORIE SALEEM Procedure Category Date Status Time Vancomycin Per PHA 01/05/25 In Process Pharmacy 14:[address]. [place] CONS 01/05/25 Transmitted [place](Spine) 14:57 Initiate Vte HERMES 01/06/25 In Process Prophylaxis 09:05 Thoracic Spine Without MRI 01/06/25 Logged 14:43 Dietary Evaluation Review Comments: 1. TF glucerna 50ml/hr providing 72 gProtwin, 1440 kcal, supporting 100% protwin needs and 81% energy needs. 2. Follow CCHO-60 diet, when medically feasible.and passing SENIOR DATA QUALITY ANALYST eval. Expected Outcomes/Goals: Controlled DM, healed wounds Date of Service: Jan 06, 2025 Billing Provider: JOANA ASH MD Common Visit Codes: [id number] INP/OBS CARE(HIGH) MALLORIE SALEEM Jan 06, 2025 10:30 JOANA ASH MD Jan 06, 2025 21:50
--- NOTE | 2025-01-06 12:19 | DVH ---
EXAM: MRI CERVICAL WO CONTRAST; DATE: 01/06/2025 10:15 AM HISTORY: concern for cervical discitis/osteo COMPARISON: CERVICAL WITHOUT CONTRAST on DOS: 10/25/22 TECHNIQUE: MRI was performed utilizing multiple appropriate imaging planes and pulse sequences. FINDINGS: CRANIOCERVICAL JUNCTION: The atlanto-dens interval is within normal limits. There is no evidence for significant cerebellar tonsillar ectopia. BONES: Vertebral body heights are preserved. No acute compression deformities are present. No discre te marrow infiltrative lesion is seen. SPINAL CORD: The spinal cord demonstrates normal signal and morphology throughout its course. No cord edema is present. PARASPINAL SOFT TISSUES: Unremarkable. INTERVERTEBRAL DISCS: C2-C3: Mild broad-based posterior disc bulge, mild right and moderate left posterior facet arthropath y with mild central canal stenosis moderate left neural foramina stenosis with impingement of the lef t exiting nerve. C3-C4: Mild broad-based posterior disc bulge, bilateral posterior facet and uncovertebral hypertrophy with mild central canal stenosis and moderate bilateral neural foramina stenosis with impingement of the bilateral traversing nerve roots and bilateral exiting nerves. C4-C5: Mild broad-based posterior disc bulge, bilateral posterior facet and uncovertebral hypertrophy with mild central canal stenosis, impingement of the traversing nerve root, moderate left and mild r ight neural foramina stenosis with impingement of the left exiting nerve. C5-C6: Central and left paracentral disc protrusion, bilateral posterior facet and uncovertebral hype rtrophy with resultant mild central canal stenosis moderate to severe bilateral neural foramina steno sis with impingement of the bilateral exiting nerves and the bilateral traversing ventral nerve roots . C6-C7: Fluid at the disc space with extensive adjacent bone marrow edema. Prevertebral soft tissue th ickening is seen anterior to C7 that may represent a developing abscess. There is edema in paraspinal musculature reflecting an element of myositis. Edema is also seen in the anterior spinous space/liga ment. Mild broad-based posterior disc bulge indenting ventral spinal cord. No abnormal signal in the cord. The bilateral posterior facet are unremarkable. Bilateral uncovertebral hypertrophy noted. Mil d bilateral neural foramina stenosis and diffuse edema in the bilateral neural foramina surrounding t he exiting nerves. C7-T1: No disc herniation, central canal stenosis, or neuroforaminal stenosis. IMPRESSION: 1. Suboptimal motion degraded an unenhanced study. 2. Evidence of acute spondylodiscitis at C6-C7 with extensive prevertebral and paraspinal edema. Sma ll prevertebral abscess anterior to C7 vertebral body can not be ruled out. Evaluation is markedly l imited without IV contrast. In addition, there is evidence of adjacent paraspinal myositis. Edema no stanislav in the inner spinous space/ligament with no definite fluid collection. The posterior facets appea r intact with no signs of septic joint. No definite epidural abscess in this limited unenhanced study . Edema in the bilateral neural foramina surrounding the exiting nerves noted. 3. Straightening of normal lordosis, multilevel degenerative disc disease, uncovertebral and posterio r facet arthropathy with evidence of nerve impingement throughout the cervical spine.
[2025-01-06] MEDS ORDERED: DEXTROSE (50%) 50ML SYRG IV PRN (13:15)
--- NOTE | 2025-01-06 14:55 | DVH ---
EXAM: MRI THORACIC SPINE WITHOUT; DATE: 01/06/2025 10:27 AM HISTORY: R/O OSTEO COMPARISON: Cervical spine MRI performed the same day TECHNIQUE: Multiplanar, multisequence MRI was performed. FINDINGS: VERTEBRAE: Normal in alignment and height. No suspicious bone marrow signal. INTERVERTEBRAL DISCS: Mild multilevel degenerative changes. No significant central canal or neural f oramina stenosis. No definite impingement of the bilateral exiting nerves and traversing nerve roots . SPINAL CORD: Normal morphology and signal without evidence for cord edema or myelomalacia. It termin ates at T12-L1 level. PARASPINAL SOFT TISSUES: Unremarkable. OTHER: None. IMPRESSION: 1. No evidence of thoracic spondylodiscitis. 2. Multilevel degenerative disc disease without significant central canal/neural foramina stenosis or nerve root impingement.
[2025-01-06] MEDS ORDERED: ONDA-188 PO (15:55)
[2025-01-06] MEDS ORDERED: LIDO5PAD12 TOP (15:55)
[2025-01-06] MEDS ORDERED: RISP0.5T45 PO (15:55)
[2025-01-06] MEDS ORDERED: OLAN2.5T38 PO (15:55)
[2025-01-06] MEDS ORDERED: LEVE1TAB38 PO (15:55)
[2025-01-06] MEDS: ACCU-CHEK COMFORT CURVE STRIP VI SCH (18:00)
[2025-01-06] MEDS: VANCOMYCIN 1.25GM/250ML 250 ML IV SCH (18:00)
[2025-01-06] MEDS: InsuLIN REG 1unit/0.01ml Soln (100units/ml) SC SCH (18:00)
[2025-01-06] MEDS: CEFEPIME 2GM/50ML NS 50 ML IV SCH (21:21)
[2025-01-06] MEDS: INSULIN LANTUS (GLARGINE) 1 /0.01ml (100units/ml) SC SCH (21:31)
[2025-01-07] VITALS (11 sets, daily range): BP systolic 105–134; BP diastolic 61–75; PULSE 63–90; RESP 16–18; TEMP 97.6–98.6; O2SAT 93–98
[2025-01-07] MEDS: ENOXAPARIN SOD 100 MG/1 ML SYRINGE SC SCH (05:33)
[2025-01-07 10:22] LABS: Chloride 104 mmol/L (98-107); Potassium 4.1 mmol/L (3.5-5.1); Sodium 137 mmol/L (136-145)
[2025-01-07 10:23] LABS: Anion Gap 8 (5-15); Carbon Dioxide 25 mmol/L (20-31)
[2025-01-07 10:24] LABS: Calcium 10.3 mg/dL (8.7-10.4)
[2025-01-07 10:29] LABS: BUN/Creatinine Ratio 33.1 (10.0-20.0)
[2025-01-07 10:30] LABS: Blood Urea Nitrogen 41 mg/dL (9-23); Glucose 163 mg/dL (74-106)
[2025-01-07 13:47] LABS: Basophils # (auto) 0.1 10 ^3/uL (0-0.2); Basophils % (auto) 0.6 % (0.0-2.0); Eosinophils # (auto) 0.2 10 ^3/uL (0-0.8); Eosinophils % (auto) 1.8 % (0.0-7.0); Hematocrit 37.4 % (41.0-53.0); Hemoglobin 12.5 g/dL (13.5-17.5); Lymphocytes # (auto) 3.2 10 ^3/uL (0.4-5.4); Lymphocytes % (auto) 38.2 % (10.0-50.0); Mean Corpuscular Hemoglobin 30.4 pg (28.0-32.0); Mean Corpuscular Hgb Conc. 33.6 g/dL (32.0-36.0); Mean Corpuscular Volume 90.4 fL (80.0-100.0); Monocytes # (auto) 0.9 10 ^3/uL (0-1.3); Monocytes % (auto) 10.6 % (0.0-12.0); Neutrophils # (auto) 4.1 10 ^3/uL (1.6-8.6); Neutrophils % (auto) 48.8 % (37.0-80.0); Nucleated Red Blood Cells % 0.2 %; Platelet Count (auto) 363 10^3/uL (140-450); Red Blood Cells 4.13 10^6/uL (4.5-5.90); Red Cell Distribution Width 16.2 % (11.8-14.3); White Blood Cell 8.4 10^3/uL (4.4-10.8)
--- NOTE | 2025-01-07 15:07 | DVHPNRES ---
Progress Note Date Seen: Jan 07, 2025 Resident Creating Document: MALLORIE SALEEM RESIDENT Medical Necessity Reason Pt with a Central, PICC or Fol: No Subjective Review of Systems Patient was seen and examined on the bedside. He is alert oriented x1. Complaint of neck pain and no other active complaint. Objective vital signs Vital Sign Date Time Temp Pulse Resp B/P (MAP) Pulse Ox O2 Delivery O2 Flow Rate FiO2 01/07/25 13:00 97.9 63 18 105/71 (82) 98 97.9 01/07/25 08:00 Nasal Cannula* 2 28 Total Intake and Output 01/06/25 01/06/25 01/07/25 15:00 23:00 07:00 Intake Total 50 ml 525 ml 125 ml Output Total 375 ml 200 ml Balance 50 ml 150 ml -75 ml medications Current Medications Medications Dose Ordered Sig/Luis A Route Start Time Stop Time Status Last Admin Dose Admin Atorvastatin Calcium 20 mg HS PO 01/04/25 22:00 01/06/25 21:22 20 MG Albuterol 2.5 mg Q6HPRN PRN NEB 01/04/25 00:00 01/05/25 00:13 2.5 MG Ondansetron HCl 4 mg Q4HP PRN IV 01/04/25 00:00 Ipratropium [place] 0.5 mg Q6HPRN PRN NEB 01/04/25 09:00 01/05/25 00:13 0.5 MG Pantoprazole Sodium 40 mg DAILY@0600 PO 01/05/25 06:00 01/07/25 05:32 40 MG Insulin Glargine 10 units HS SC 01/06/25 22:00 01/06/25 21:31 10 UNITS Diagnostic Test (Pha) 1 strip ACHS 01/06/25 17:00 01/07/25 11:56 1 STRIP Insulin Human Regular ACHS SC 01/06/25 17:00 01/07/25 12:14 2 UNITS Dextrose 50 ml UD PRN IV 01/06/25 13:15 Vancomycin HCl 250 ml @ 200 mls/hr Q24H IV 01/06/25 16:00 Hold 01/06/25 18:00 200 MLS/HR Cefepime HCl 50 ml @ 12.5 mls/hr Q12HR IV 01/06/25 22:00 01/07/25 10:05 12.5 MLS/HR Enoxaparin Sodium 70 mg Q12HR SC 01/07/25 06:00 01/07/25 10:05 70 MG Linezolid 300 ml @ 150 mls/hr Q12HR IV 01/07/25 22:00 Examination Physical examination: General Appearance: Alert, Oriented X1, Cooperative, Mild distress HEENT: Atraumatic, PERRLA, EOMI, Mucous membrane moist/pink Respiratory: Clear to auscultation, Normal air movement Cardiovascular: Irregular rate, Normal S1, Normal S2, No murmurs, no chest wall tenderness Abdominal: Normal bowel sounds, Soft, No tenderness, No hepatospenomegaly, No masses Extremities: No clubbing, No cyanosis, No edema, Normal pulses, No tenderness/swelling Skin: No rashes, No breakdown, No significant lesion Neuro: Bed bound, Normal speech, Strength at 4/5 X4 ext, Normal tone, Sensation intact, grossly intact cranial nerves. Psych/Mental Status: Mental status NL, Mood NL laboratory and microbiology Laboratory Tests 01/07/25 13:13 01/07/25 09:47 Test 01/07/25 09:47 Range/Units Serum Glucose 163 H 74-106 mg/dL Microbiology Date/Time Source Procedure Growth Status 01/05/25 00:00 Nose MRSA Screen - Final Complete 01/03/25 20:00 Voided Urine Urine Culture - Final Enterococcus faecium Complete 01/03/25 18:40 Blood Blood Culture - Preliminary NO GROWTH AFTER 72 HOURS OF INCUBATION. Resulted Labs and/or images reviewed: Labs reviewed by me, Image(s) reviewed by me Problem List/Assessment/Plan Problem List/Assessment/Plan Assessment and plan: # Possible osteomyelitis in the cervical spine - Destructive endplate changes noted at C6-7 with paravertebral soft tissue swelling, new when compared to 02/08/23. Findings are concerning for possible discitis/osteomyelitis - ESR is 91 and CRP is 3.97 - MRI of cervical spine demonstrated evidence of acute spondylodiscitis at C6-C7 with extensive prevertebral and paraspinal edema. Small prevertebral abscess anterior to C7 vertebral body can not be ruled out. Evaluation is markedly limited without IV contrast. In addition, there is evidence of adjacent paraspinal myositis. Edema noted in the inner spinous space/ligament with no definite fluid collection. - IV Linezolid 600 mg b.i.d. and IV cefepime 2 g Q 8 hours - Preliminary blood culture demonstrated no growth in 24 hours - Spine surgeon on board and recommended higher level of care for possible spine surgery for cervical spinal osteomyelitis. - Dr. Banerjee from [facility] recommended only continuation of IV antibiotic, no surgery needed and cancel the transfer. # Acute hypoxic respiratory failure likely due to pulmonary embolism - Patient was initially on 6 L oxygen and now titrated down to 2 L oxygen with saturation 97% - History of mobilization and the patient was presented with tachycardia - Well's score for pulmonary embolism is 6 - D-dimer elevated - CT angio ruled out PE. - Albuterol and ipratropium q.6 p.r.n. # Persistent atrial fibrillation with secondary hypercoagulable state # History of multiple strokes # History of CAD # Chronic systolic heart failure with improved ejection fraction # Acute hypotension - CT head without IV contrast demonstrated Areas of hypodensities involving the bilateral occipital lobes and right occipitoparietal region which may represent areas of infarct of unknown chronicity. Severe chronic small-vessel ischemic Changes. Superimposed areas of infarct -[id number] score 8 - Aspirin 81 mg daily and therapeutic Lovenox 1 milligram/kg b.i.d. - Echo consulted EF 50% - Hold GDMT because of the hypotension - Atorvastatin 20 mg p.o. at HS # Acute complicated UTI - U/A was consistent with UTI - Ordered urine bacterial culture - IV ertapenem 1 g daily # Type 2 diabetes mellitus, hemoglobin A1c 6.2 - Mild sliding scale of insulin # DVT prophylaxis - Patient is on Lovenox # PUD prophylaxis - Protonix 40 mg p.o. daily Goal of care discussed with the patient for more than 20 minutes full code Plan discussed with Dr. Ash Plan discussed with: Patient, Other My Orders My Orders Orders - MALLORIE SALEEM RESIDENT Procedure Category Date Status Time * Infectious Honorio- CONS 01/07/25 Transmitted K Jigar 08:58 Linezolid 600mg/300ml PHA 01/07/25 In Process (Zyvox) 22:00 Consistent DIET 01/07/25 Transmitted Carb(Ccho)Diabetes Lunch * Picc Line Consult CONS 01/07/25 Transmitted 14:21 Dietary Evaluation Review Comments: 1. TF glucerna 50ml/hr providing 72 gProtwin, 1440 kcal, supporting 100% protwin needs and 81% energy needs. 2. Follow CCHO-60 diet, when medically feasible.and passing SPA MANAGER eval. Expected Outcomes/Goals: Controlled DM, healed wounds Date of Service: Jan 07, 2025 Billing Provider: JOANA ASH MD Common Visit Codes: [id number] INP/OBS CARE(MOD) MALLORIE SALEEM RESIDENT Jan 07, 2025 15:07 JOANA ASH MD Jan 07, 2025 21:16
--- NOTE | 2025-01-07 20:32 | DVHINCON2 ---
Date of service: Jan 07, 2025 Family History: Alcoholism Cancer G8 MOTHER 19 CHILD 19 CHILD GRANDMA Chronic obstructive lung disease (situation) Family history: Alzheimer's disease Family history: Arthritis Family history: Asthma Family history: Blood disorder Family history: Cardiovascular disease Family history: Coronary thrombosis Family history: Glaucoma Ischemic heart disease Malignant neoplasm of breast Malignant neoplasm of lung Prostate cancer No Family History of: Cancer of colon Family history: Congenital anomaly Family history: Depression (situation) Family history: Diabetes in Family history: Diabetes mellitus Family history: Hypercholesterolemia (situation) Family history: Hypertension Family history: Osteoporosis Family history: Suicide (situation) Family history: Thyroid disorder Malignant melanoma Malignant neoplasm of ovary Renal stone Seizure disorder (situation) Stroke Allergies: Coded Allergies: NO KNOWN ALLERGIES (Unverified , 10/26/22) Home Meds Active Scripts Linagliptin Base (TRADJENTA) 5 Mg Tab, 1 TAB PO DAILY, #90 TAB 1 Refill Prov:SOLIS NIEVES MD 10/29/22 Pantoprazole Sodium Sesquihydr (Protonix) 40 Mg Tab, 40 MG PO BID, #60 TAB Prov:LEVI GALLOWAY MD 05/14/20 Reported Medications Risperidone (Risperidone) 0.5 Mg Tab, 1 TAB PO BID PRN for AGITATION, #60 TAB 1 Refill 01/06/25 Ondansetron HCl (Ondansetron Hydrochloride) 4 Mg Tab, 4 MG PO Q6HP PRN for NAUSEA / VOMITING, TAB 01/06/25 Olanzapine (OLANZAPINE) 2.5 Mg Tab, 2.5 MG PO HS for 30 Days, MG 01/06/25 Lidocaine (Lidocaine Patch 5%) 5 % Pad, 1 PATCH TOP DAILY, PAD 01/06/25 Levetiracetam (LEVETIRACETAM ER) 750 Mg Tab, 750 MG PO BID, TAB 01/06/25 Furosemide (Furosemide) 40 Mg Tab, 40 MG PO DAILY for 30 Days 02/06/23 Sacubitril-Valsartan (Entresto 24-26 mg) Unknown Strength Tab, 1 TAB PO BID, TAB 12/12/22 Aspirin (Aspir-Low) 81 Mg Tab, 81 MG PO DAILY for 30 Days, MG 12/12/22 Sitagliptin Phosphate (Januvia) Unknown Strength Tab, PO DAILY, #30 TAB 5 Refills 12/12/22 Insulin Glargine (Lantus) 100 Unit/Ml Inj, 100 UNIT SC, INJ 12/12/22 Insulin Lispro (Human) (Humalog) 100 Unit/Ml Inj, 100 UNIT SC, INJ 12/12/22 Fluticasone Propionate (FLOVENT HFA 110Mcg INH) 110 Mcg Ih, 2 PUFF INH Q12HR, MCG 05/12/20 Hydrocodone-Acetaminophen ([place] 7.5-325 mg) 1 Tab Tab, 1 TAB PO BIDP PRN for PAIN, TAB 05/12/20 Carvedilol (Carvedilol) 12.5 Mg Tab, 6.25 MG PO Q12HR for 30 Days, MG QAM, TAKE CARVEDILOL 12.5 MG TAB WITH CARVEDILOL 25 MG TAB. QPM, TAKE CARVEDILOL 12.5 MG TAB ONLY 05/12/20 Gabapentin (Gabapentin) 600 Mg Tab, 600 MG PO BID for 30 Days, MG 05/12/20 Atorvastatin Calcium (ATORVASTATIN CALCIUM) 20 Mg Tab, 40 MG PO QPM, #30 TAB 5 Refills 02/16/17 Albuterol Sulfate (Ventolin Hfa) Aer, 2 PUFF IN BIDP PRN for SHORTNESS OF BREATH, AER 02/16/17 Current Medications Current Medications Medications (Trade) Dose Ordered Sig/Luis A Route PRN Reason Start Time Stop Time Status Last Admin Insulin Glargine (Lantus) 10 units HS SC 01/06/25 22:00 01/06/25 21:31 Cefepime HCl 50 ml @ 12.5 mls/hr Q12HR IV 01/06/25 22:00 01/07/25 10:05 Enoxaparin Sodium (Lovenox) 70 mg Q12HR SC 01/07/25 06:00 01/07/25 10:05 Linezolid 300 ml @ 150 mls/hr Q12HR IV 01/07/25 22:00 Vital Signs Vital Signs Date Time Temp Pulse Resp B/P (MAP) Pulse Ox O2 Delivery O2 Flow Rate FiO2 01/07/25 16:32 98.1 82 16 113/61 (78) 96 98.1 01/07/25 08:00 Nasal Cannula* 2 28 Labs/Diagnostic Data Labs Test 01/07/25 13:13 01/07/25 11:40 01/07/25 09:47 01/06/25 06:18 Range/Units White Blood Count 8.4 4.4-10.8 10^3/uL Red Blood Count 4.13 L 4.5-5.90 10^6/uL Hemoglobin 12.5 L 13.5-17.5 g/dL Hematocrit 37.4 L 41.0-53.0 % Mean Corpuscular Volume 90.4 80.0-100.0 fL Mean Corpuscular Hemoglobin 30.4 28.0-32.0 pg Mean Corpuscular Hemoglobin Concent 33.6 32.0-36.0 g/dL Red Cell Distribution Width 16.2 H 11.8-14.3 % Platelet Count 363 140-450 10^3/uL Mean Platelet Volume 7.5 6.9-10.8 fL Neutrophils (%) (Auto) 48.8 37.0-80.0 % Lymphocytes (%) (Auto) 38.2 10.0-50.0 % Monocytes (%) (Auto) 10.6 0.0-12.0 % Eosinophils (%) (Auto) 1.8 0.0-7.0 % Basophils (%) (Auto) 0.6 0.0-2.0 % Neutrophils # (Auto) 4.1 1.6-8.6 10 ^3/uL Lymphocytes # (Auto) 3.2 0.4-5.4 10 ^3/uL Monocytes # (Auto) 0.9 0-1.3 10 ^3/uL Eosinophils # (Auto) 0.2 0-0.8 10 ^3/uL Basophils # (Auto) 0.1 0-0.2 10 ^3/uL Nucleated Red Blood Cells 0.2 % POC Glucose 160 H 70-106 mg/dl Sodium Level 137 136-145 mmol/L Potassium Level 4.1 3.5-5.1 mmol/L Chloride Level 104 98-107 mmol/L Carbon Dioxide Level 25 20-31 mmol/L Anion Gap 8 5-15 Blood Urea Nitrogen 41 H 9-23 mg/dL Creatinine 1.24 0.700-1.30 mg/dL Glomerular Filtration Rate Calc 61 >90 mL/min BUN/Creatinine Ratio 33.1 H 10.0-20.0 Serum Glucose 163 H 74-106 mg/dL Calcium Level 10.3 8.7-10.4 mg/dL Random Vancomycin Level 16.8 H 5-10 ug/mL Test 01/05/25 16:00 01/04/25 09:20 01/04/25 00:55 01/04/25 00:10 Range/Units Erythrocyte Sedimentation Rate 91 H 0-20 mm/hr C-Reactive Protein High Sensitivity 3.97 H <1.0 mg/dL Ammonia 12 11-32 umol/L Thyroid Stimulating Hormone (TSH) 1.99 0.55-4.78 uIU/mL Hemoglobin A1c 6.2 H <5.7 % A1C B-Type Natriuretic Peptide 133.43 0-100 pg/mL Vitamin B12 Level 993 H 211-911 pg/mL Vitamin D 25-Hydroxy 65.6 30.0-100 ng/mL D-Dimer, Quantitative 0.96 H 0.0-0.49 mg/L FEU Test 01/03/25 20:00 01/03/25 18:30 Range/Units Urine Color Light-orange Yellow Urine Clarity Ex.turbid Clear Urine pH 6.0 5.0-9.0 Urine Specific [place] 1.018 1.001-1.035 Urine Protein 1+ H Negative Urine Ketones Negative Negative Urine Blood 3+ H Negative /uL Urine Nitrite Negative Negative Urine Bilirubin Negative Negative Urine Urobilinogen Normal Negative mg/dL Urine Leukocyte Esterase 3+ Negative /uL Urine RBC 39 0 - 3 /hpf Urine WBC Clumps Present None Seen /hpf Urine Microscopic WBC 3404 H 0-3 /HPF Urine Squamous Epithelial Cells None seen <5 /hpf Urine Bacteria Few H None Seen /hpf Urine Hyaline Casts Mod 0 - 2 /lpf Urine Yeast (Budding) Moderate None Seen /hpf Urine Glucose Normal Normal mg/dL Lactic Acid Level 1.8 0.4-2.0 mmol/L Troponin I High Sensitivity 35 </=54 ng/L Microbiology Date/Time Source Procedure Growth Status 01/05/25 00:00 Nose MRSA Screen - Final Complete 01/03/25 20:00 Voided Urine Urine Culture - Final Enterococcus faecium Complete 01/03/25 18:40 Blood Blood Culture - Preliminary NO GROWTH AFTER 72 HOURS OF INCUBATION. Resulted Problems(with codes): (1) Acute respiratory failure (2) Dyspnea on exertion (3) Acute kidney injury (4) Prerenal azotemia (5) Leukocytosis (6) CVA (cerebral vascular accident) Plan/Recommendation ASSESSMENT AND PLAN ID Problem List: - Acute hypoxic respiratory failure - Recent stroke - Seizures - Metabolic encephalopathy - Urinary tract infection (UTI) - Diabetes mellitus - Hypertension - Chronic kidney disease (CKD) - Atrial fibrillation (Afib) - Chronic obstructive pulmonary disease (COPD) - Dyslipidemia - Myocardial infarction (UT) - Recent coronary artery bypass graft (CABG) Assessment: Mr. Nghia Adams is a 74-year-old male with a history of CKD, Afib, COPD, diabetes, dyslipidemia, hypertension, seizure disorder, recent stroke, UT, and previous CABG. He presents with acute hypoxic respiratory failure and was recently discharged from [facility] after treatment for septic shock. At home, he required three liters of oxygen via nasal cannula. Current vital signs demonstrate mild hypoxia on supplemental oxygen. In the ED, ceftriaxone was administered. Recent diagnostics: - Chest X-ray: No acute cardiopulmonary disease. Left costophrenic angle partially visualized, otherwise unremarkable. - Head CT: Areas of hyperdensity in bilateral occipital lobes and right occipital-parietal region, may represent infarction. - Laboratory data: Elevated glucose (218 mg/dL), creatinine 1.15 mg/dL, BUN 31, sodium 137. White blood cell count 6.7, hemoglobin 13.9, platelet count 351, lactic acid 1.8. Urinalysis significant for pyuria, urine leukocytes 3+, few bacteria, yeast present, preliminary urine cultures growing Enterococcus (noted to be vancomycin-resistant). BNP 130, D-dimer 0.96. - The patient is on apixaban and atorvastatin at home. Plan: - Initiate daptomycin or linezolid for VRE UTI, in place of vancomycin. - Continue cefepime for broader antimicrobial coverage given recent septic shock and hospitalization. - Exchange Martínez catheter to facilitate eradication of Enterococcus from the urinary tract. - Fluid support for hypotension, as needed. - Monitor for and manage acute kidney injury; nephrology consult if worsening. - Obtain blood, urine, and sputum cultures. - Swallow evaluation to assess for risk of aspiration given recent stroke and possible metabolic encephalopathy. - Monitor renal function closely while on empiric antibiotics. - Continue home apixaban and atorvastatin. - Strict glucose control for diabetes. - Continue home antihypertensives as tolerated. - Respiratory support as needed. - Monitor for seizures and provide anti-epileptic therapy as indicated. Isolation Precautions: Not specified. Assessment and plan discussed with patient (if able) and/or medical team. Plan subject to change pending new information or diagnostics. Thank you for the consult. ID will continue to follow. Please contact Infectious Disease for questions or concerns. Vivi Kimball M.D. [facility] Ph: ? Teams text: [email or web address] Electronically signed by: Vivi Kimball MD, 01/08/2025 History: The patient's chart and medications were reviewed in detail and the patient was seen and examined. History obtained from: medical record Mr. Nghia Adams is a 74-year-old male with a complex past medical history (see below), presenting with shortness of breath, recent stroke and seizures, metabolic encephalopathy, and urinary tract infection. At home, baseline is alert and oriented to person only, on three liters oxygen via nasal cannula, was recently hospitalized for septic shock. No history of smoking, alcohol, or heavy drug use. Review of Systems: A complete 10-system review of systems was completed and negative except as noted in the HPI or here. - CONSTITUTIONAL: Denies rashes. - HEENT: Not discussed. - RESPIRATORY: Complains of shortness of breath. No cough discussed. - CV: Not discussed. - GI: Not discussed. - : No open wounds. - MSK: Not discussed. - SKIN: No rashes. - NEUROLOGICAL: History of recent stroke and seizures. - PSYCHIATRIC: Not discussed. Past Medical History: - Chronic kidney disease - Atrial fibrillation - Chronic obstructive pulmonary disease - Stroke - Diabetes mellitus - Dyslipidemia - Hypertension - Seizure disorder - Myocardial infarction Past Surgical History: - Coronary artery bypass graft (CABG) Home Medications: - Apixaban - Atorvastatin Other medications not specified. Allergies: Not provided in transcript. Family History: Not provided in transcript. Social History: - No history of smoking - No alcohol use - No heavy drug use Social Determinants of Health: Not provided in transcript. Objective: Vital Signs on Arrival: - Temperature: 98.1 F - Blood Pressure: 110/61 - Pulse: 96 - Respiratory Rate: 23 - SpO2: 97% on 3L nasal cannula Most Recent Vital Signs: Not provided in transcript. Admission Weight: Not provided in transcript. Physical Exam: General: NAD Neck: Supple. No masses. HEENT: PERRL. Normal lids and conjunctiva. Moist mucous membranes. Oropharynx without lesions, exudates or excessive erythema. Normal appearance of the external aspects of the nose and ears. Heart: Regular rhythm, normal rate. No murmur. No lower extremity edema. Lungs: Normal respiratory effort. Clear to auscultation bilaterally. No wheezes. No crackles. Abdomen: Soft. Non-tender. Non-distended. No masses or abdominal hernia. Msk: No digital cyanosis. Normal strength and tone in all 4 limbs Skin: Warm and dry, no rashes. Neuro: Alert. No facial droop or slurred speech. Extra-ocular movements intact. Sensation intact to soft touch in all 4 limbs. Psych: Appropriate mood. Full affect. Oriented to person, place, time, and situation. Lines: Not provided in transcript. Diagnostic Studies: Available diagnostic studies reviewed are outlined below. Pertinent Imaging: - Chest X-ray: No acute cardiopulmonary disease. Left costophrenic angle partially visualized; otherwise, no significant findings. - Head CT: Areas of hyperdensity in bilateral occipital lobes and right occipital-parietal region, may represent cerebral infarctions. Pertinent Laboratory/Other Results: BNP 130 - D-dimer 0.96 - Glucose 218 mg/dL - Urinalysis: Nitrite negative, leukocytes 3+, few bacteria, yeast present, significant pyuria - Urine culture: Enterococcus (VRE) WBC 6.7 - Hemoglobin 13.9 - Platelets 351 - Creatinine 1.15 BUN 31 - Sodium 137 - Lactic acid 1.8 Microbiology: - Preliminary urine cultures: Enterococcus (vancomycin-resistant) Additional Studies: Not provided in transcript. Plan discussed with: Patient VIVI KIMBALL MD Jan 07, 2025 20:31
[2025-01-07] MEDS: LINEZOLID 600MG/300ML 300 ML IV SCH (22:11)
[2025-01-08] VITALS (7 sets, daily range): BP systolic 114–155; BP diastolic 53–80; PULSE 80–93; RESP 16–18; TEMP 97.5–98.7; O2SAT 92–96
[2025-01-08 09:40] LABS: Basophils # (auto) 0 10 ^3/uL (0-0.2); Basophils % (auto) 0.7 % (0.0-2.0); Eosinophils # (auto) 0.2 10 ^3/uL (0-0.8); Eosinophils % (auto) 2.1 % (0.0-7.0); Hematocrit 35.7 % (41.0-53.0); Hemoglobin 11.6 g/dL (13.5-17.5); Lymphocytes # (auto) 2.9 10 ^3/uL (0.4-5.4); Lymphocytes % (auto) 39.1 % (10.0-50.0); Mean Corpuscular Hemoglobin 29.8 pg (28.0-32.0); Mean Corpuscular Hgb Conc. 32.6 g/dL (32.0-36.0); Mean Corpuscular Volume 91.5 fL (80.0-100.0); Monocytes # (auto) 0.8 10 ^3/uL (0-1.3); Monocytes % (auto) 11.3 % (0.0-12.0); Neutrophils # (auto) 3.4 10 ^3/uL (1.6-8.6); Neutrophils % (auto) 46.8 % (37.0-80.0); Nucleated Red Blood Cells % 0.1 %; Platelet Count (auto) 341 10^3/uL (140-450); Red Cell Distribution Width 16.2 % (11.8-14.3); White Blood Cell 7.3 10^3/uL (4.4-10.8)
[2025-01-08 10:02] LABS: Anion Gap 8 (5-15); Carbon Dioxide 24 mmol/L (20-31); Chloride 105 mmol/L (98-107); Sodium 137 mmol/L (136-145)
[2025-01-08 10:04] LABS: Calcium 10.2 mg/dL (8.7-10.4)
[2025-01-08 10:10] LABS: Blood Urea Nitrogen 31 mg/dL (9-23); Glucose 127 mg/dL (74-106); Potassium 3.4 mmol/L (3.5-5.1)
--- NOTE | 2025-01-08 17:21 | DVHPNRES ---
Progress Note Date Seen: Jan 08, 2025 Resident Creating Document: MALLORIE SALEEM RESIDENT Medical Necessity Reason Pt with a Central, PICC or Fol: No Subjective Review of Systems Patient was seen and examined on the bedside. He is alert oriented x1. Complaint of neck pain and no other active complaint. The patient was discharged today with home health for continuation of IV antibiotics for 6 weeks but family wants hospice for the patient and they will come to discuss tomorrow. Review of Systems: HEENT:Normal, CVS:Normal, RESPIRATORY:Normal Objective vital signs Vital Sign Date Time Temp Pulse Resp B/P (MAP) Pulse Ox O2 Delivery O2 Flow Rate FiO2 01/08/25 09:00 93 16 155/76 (102) 92 01/08/25 08:00 Nasal Cannula* 2 28 01/08/25 05:00 98.3 98.3 Total Intake and Output 01/07/25 01/07/25 01/08/25 15:00 23:00 07:00 Intake Total 380 ml 350 ml Output Total 225 ml 275 ml Balance 155 ml 75 ml medications Current Medications Medications Dose Ordered Sig/Luis A Route Start Time Stop Time Status Last Admin Dose Admin Atorvastatin Calcium 20 mg HS PO 01/04/25 22:00 01/07/25 22:11 20 MG Albuterol 2.5 mg Q6HPRN PRN NEB 01/04/25 00:00 01/05/25 00:13 2.5 MG Ondansetron HCl 4 mg Q4HP PRN IV 01/04/25 00:00 Ipratropium [place] 0.5 mg Q6HPRN PRN NEB 01/04/25 09:00 01/05/25 00:13 0.5 MG Pantoprazole Sodium 40 mg DAILY@0600 PO 01/05/25 06:00 01/08/25 06:24 40 MG Insulin Glargine 10 units HS SC 01/06/25 22:00 01/07/25 22:00 10 UNITS Diagnostic Test (Pha) 1 strip ACHS 01/06/25 17:00 01/08/25 17:04 1 STRIP Insulin Human Regular ACHS SC 01/06/25 17:00 01/07/25 22:00 2 UNITS Dextrose 50 ml UD PRN IV 01/06/25 13:15 Cefepime HCl 50 ml @ 12.5 mls/hr Q12HR IV 01/06/25 22:00 01/08/25 12:51 12.5 MLS/HR Enoxaparin Sodium 70 mg Q12HR SC 01/07/25 06:00 01/08/25 08:50 70 MG Linezolid 300 ml @ 150 mls/hr Q12HR IV 01/07/25 22:00 01/08/25 08:50 150 MLS/HR Examination Physical examination: General Appearance: Alert, Oriented X1, Cooperative, Mild distress HEENT: Atraumatic, PERRLA, EOMI, Mucous membrane moist/pink Respiratory: Clear to auscultation, Normal air movement Cardiovascular: Irregular rate, Normal S1, Normal S2, No murmurs, no chest wall tenderness Abdominal: Normal bowel sounds, Soft, No tenderness, No hepatospenomegaly, No masses Extremities: No clubbing, No cyanosis, No edema, Normal pulses, No tenderness/swelling Skin: No rashes, No breakdown, No significant lesion Neuro: Bed bound, Normal speech, Strength at 4/5 X4 ext, Normal tone, Sensation intact, grossly intact cranial nerves. Psych/Mental Status: Mental status NL, Mood NL Examination: GENERAL:Normal, HEENT:Normal laboratory and microbiology Laboratory Tests 01/08/25 09:25 Test 01/08/25 09:25 Range/Units Serum Glucose 127 H 74-106 mg/dL Microbiology Date/Time Source Procedure Growth Status 01/05/25 00:00 Nose MRSA Screen - Final Complete 01/03/25 20:00 Voided Urine Urine Culture - Final Enterococcus faecium Complete 01/03/25 18:40 Blood Blood Culture - Preliminary NO GROWTH AFTER 72 HOURS OF INCUBATION. Resulted Labs and/or images reviewed: Labs reviewed by me, Image(s) reviewed by me Problem List/Assessment/Plan Problem List/Assessment/Plan Assessment and plan: # Possible osteomyelitis in the cervical spine - Destructive endplate changes noted at C6-7 with paravertebral soft tissue swelling, new when compared to 02/08/23. Findings are concerning for possible discitis/osteomyelitis - ESR is 91 and CRP is 3.97 - MRI of cervical spine demonstrated evidence of acute spondylodiscitis at C6-C7 with extensive prevertebral and paraspinal edema. Small prevertebral abscess anterior to C7 vertebral body can not be ruled out. Evaluation is markedly limited without IV contrast. In addition, there is evidence of adjacent paraspinal myositis. Edema noted in the inner spinous space/ligament with no definite fluid collection. - IV Linezolid 600 mg b.i.d. and IV cefepime 2 g Q 8 hours - Preliminary blood culture demonstrated no growth in 24 hours - Spine surgeon on board and recommended higher level of care for possible spine surgery for cervical spinal osteomyelitis. - Dr. Banerjee from [facility] recommended only continuation of IV antibiotic, no surgery needed and cancel the transfer. # Acute hypoxic respiratory failure likely due to pulmonary embolism - Patient was initially on 6 L oxygen and now titrated down to 2 L oxygen with saturation 97% - History of mobilization and the patient was presented with tachycardia - Well's score for pulmonary embolism is 6 - D-dimer elevated - CT angio ruled out PE. - Albuterol and ipratropium q.6 p.r.n. # Persistent atrial fibrillation with secondary hypercoagulable state # History of multiple strokes # History of CAD # Chronic systolic heart failure with improved ejection fraction # Acute hypotension - CT head without IV contrast demonstrated Areas of hypodensities involving the bilateral occipital lobes and right occipitoparietal region which may represent areas of infarct of unknown chronicity. Severe chronic small-vessel ischemic Changes. Superimposed areas of infarct -[id number] score 8 - Aspirin 81 mg daily and therapeutic Lovenox 1 milligram/kg b.i.d. - Echo consulted EF 50% - Hold GDMT because of the hypotension - Atorvastatin 20 mg p.o. at HS # Acute complicated UTI - U/A was consistent with UTI - Ordered urine bacterial culture - IV ertapenem 1 g daily # Type 2 diabetes mellitus, hemoglobin A1c 6.2 - Mild sliding scale of insulin # DVT prophylaxis - Patient is on Lovenox # PUD prophylaxis - Protonix 40 mg p.o. daily Goal of care discussed with the patient for more than 20 minutes full code Plan discussed with Dr. leyva Plan discussed with: Patient, Other My Orders My Orders Orders - MALLORIE SALEEM RESIDENT Procedure Category Date Status Time Ok To Access ORDERS 01/08/25 Transmitted Libertad-Cath 08:27 Communication Order ORDERS 01/08/25 Transmitted 08:27 * Range Mounter CONS 01/08/25 Transmitted Consult 10:15 Abg W/ Co-Ox RT 01/08/25 Logged 12:15 Discharge DISCHARGE 01/08/25 Transmitted 13:38 Dietary Evaluation Review Comments: 1. TF glucerna 50ml/hr providing 72 gProtwin, 1440 kcal, supporting 100% protwin needs and 81% energy needs. 2. Follow CCHO-60 diet, when medically feasible.and passing STATISTICAL PROGRAMMER eval. Expected Outcomes/Goals: Controlled DM, healed wounds Date of Service: Jan 08, 2025 Billing Provider: ESTEFANIA LEYVA DO Common Visit Codes: [id number] INP/OBS CARE(HIGH) MALLORIE SALEEM RESIDENT Jan 08, 2025 17:21 ESTEFANIA LEYVA DO Jan 10, 2025 20:53
[2025-01-09] VITALS (7 sets, daily range): BP systolic 105–134; BP diastolic 68–74; PULSE 80–87; RESP 18–20; TEMP 96.7–98.1; O2SAT 92–95
[2025-01-09] MEDS: POTASSIUM EFFERVESENT TAB 25 MEQ PO ONE (06:35)
[2025-01-09] MEDS ORDERED: GADOTERATE MEG 10 MMOL/20ml INJ (0.5MMOL/ml) IV ONE (09:13)
--- NOTE | 2025-01-09 10:42 | DVH ---
MRI BRAIN WITH CONTRAST CLINICAL HISTORY: evaluate for septic emboli vs ischemic stroke TECHNIQUE: Multiplanar multisequence images of the brain were obtained prior to and following intravenous admini stration of contrast. 10 cc of gadavist contrast from a prefilled syringe was administered intravenou sly. Comparison: CT head 01/03/2025 FINDINGS: There is no restricted diffusion. There is a moderate size chronic infarct involving the right occipi yi and medial temporal lobes with associated encephalomalacia, gliosis and laminar necrosis. There i s a similar smaller chronic infarct in the medial left occipital lobe. There are moderate to severe c hronic small-vessel ischemic changes in the supratentorial white matter. There is no pathologic enhancement. There is no evidence of acute hemorrhage, mass, mass effect or mi dline shift. There is no hydrocephalus or extra-axial fluid collection. The visualized intracranial v asculature demonstrates appropriate flow-voids. The midline structures appear unremarkable. The crani ocervical junction is within normal limits. The calvarium demonstrates normal marrow signal. There is small amount of fluid in the left mastoid air cells. Paranasal sinuses are clear. IMPRESSION: 1. There is no acute intracranial process. 2. Moderate size chronic infarct involving the right occipital and medial temporal lobes. There is a smaller similar chronic infarct in the medial left occipital lobe. 3. Moderate to severe chronic microvascular white matter ischemic changes. HS:Y
[2025-01-09 11:11] LABS: Chloride 105 mmol/L (98-107); Potassium 3.6 mmol/L (3.5-5.1); Sodium 138 mmol/L (136-145)
[2025-01-09 11:12] LABS: Anion Gap 8 (5-15); Calcium 10.4 mg/dL (8.7-10.4); Carbon Dioxide 25 mmol/L (20-31)
[2025-01-09 11:17] LABS: BUN/Creatinine Ratio 23.4 (10.0-20.0); Blood Urea Nitrogen 25 mg/dL (9-23); Glucose 112 mg/dL (74-106)
--- NOTE | 2025-01-09 11:31 | DVHDSRES ---
Discharge Summary Date of Admission Resident Creating Document: MALLORIE SALEEM RESIDENT Jan 03, 2025 at 23:48 Date of Discharge: Jan 09, 2025 Admitting Diagnosis Acute hypoxic respiratory failure likely due to pulmonary embolism Wounds: No wound was present. Labs/Diagnostic Data: Laboratory Results Test 01/09/25 10:55 01/09/25 10:50 01/08/25 09:25 01/06/25 06:18 POC Glucose 114 mg/dl (70-106) Sodium Level 138 mmol/L (136-145) Potassium Level 3.6 mmol/L (3.5-5.1) Chloride Level 105 mmol/L (98-107) Carbon Dioxide Level 25 mmol/L (20-31) Anion Gap 8 (5-15) Blood Urea Nitrogen 25 mg/dL (9-23) Creatinine 1.07 mg/dL (0.700-1.30) Glomerular Filtration Rate Calc 72 mL/min (>90) BUN/Creatinine Ratio 23.4 (10.0-20.0) Serum Glucose 112 mg/dL (74-106) Calcium Level 10.4 mg/dL (8.7-10.4) White Blood Count 7.3 10^3/uL (4.4-10.8) Red Blood Count 3.90 10^6/uL (4.5-5.90) Hemoglobin 11.6 g/dL (13.5-17.5) Hematocrit 35.7 % (41.0-53.0) Mean Corpuscular Volume 91.5 fL (80.0-100.0) Mean Corpuscular Hemoglobin 29.8 pg (28.0-32.0) Mean Corpuscular Hemoglobin Concent 32.6 g/dL (32.0-36.0) Red Cell Distribution Width 16.2 % (11.8-14.3) Platelet Count 341 10^3/uL (140-450) Mean Platelet Volume 7.6 fL (6.9-10.8) Neutrophils (%) (Auto) 46.8 % (37.0-80.0) Lymphocytes (%) (Auto) 39.1 % (10.0-50.0) Monocytes (%) (Auto) 11.3 % (0.0-12.0) Eosinophils (%) (Auto) 2.1 % (0.0-7.0) Basophils (%) (Auto) 0.7 % (0.0-2.0) Neutrophils # (Auto) 3.4 10 ^3/uL (1.6-8.6) Lymphocytes # (Auto) 2.9 10 ^3/uL (0.4-5.4) Monocytes # (Auto) 0.8 10 ^3/uL (0-1.3) Eosinophils # (Auto) 0.2 10 ^3/uL (0-0.8) Basophils # (Auto) 0 10 ^3/uL (0-0.2) Nucleated Red Blood Cells 0.1 % Random Vancomycin Level 16.8 ug/mL (5-10) Test 01/05/25 16:00 01/04/25 09:20 01/04/25 00:55 01/04/25 00:10 Erythrocyte Sedimentation Rate 91 mm/hr (0-20) C-Reactive Protein High Sensitivity 3.97 mg/dL (<1.0) Ammonia 12 umol/L (11-32) Thyroid Stimulating Hormone (TSH) 1.99 uIU/mL (0.55-4.78) Hemoglobin A1c 6.2 % A1C (<5.7) B-Type Natriuretic Peptide 133.43 pg/mL (0-100) Vitamin B12 Level 993 pg/mL (211-911) Vitamin D 25-Hydroxy 65.6 ng/mL (30.0-100) D-Dimer, Quantitative 0.96 mg/L FEU (0.0-0.49) Test 01/03/25 20:00 01/03/25 18:30 Urine Color Light-orange (Yellow) Urine Clarity Ex.turbid (Clear) Urine pH 6.0 (5.0-9.0) Urine Specific [place] 1.018 (1.001-1.035) Urine Protein 1+ (Negative) Urine Ketones Negative (Negative) Urine Blood 3+ /uL (Negative) Urine Nitrite Negative (Negative) Urine Bilirubin Negative (Negative) Urine Urobilinogen Normal mg/dL (Negative) Urine Leukocyte Esterase 3+ /uL (Negative) Urine RBC 39 /hpf (0 - 3) Urine WBC Clumps Present /hpf (None Seen) Urine Microscopic WBC 3404 /HPF (0-3) Urine Squamous Epithelial Cells None seen /hpf (<5) Urine Bacteria Few /hpf (None Seen) Urine Hyaline Casts Mod /lpf (0 - 2) Urine Yeast (Budding) Moderate /hpf (None Seen) Urine Glucose Normal mg/dL (Normal) Lactic Acid Level 1.8 mmol/L (0.4-2.0) Troponin I High Sensitivity 35 ng/L (</=54) Other Laboratory Tests 01/09/25 10:50 01/08/25 09:25 Brief Hx & Hospital Course: This is a 74-year-old male with past medical history of CVA, CKD, AFib, COPD, type 2 diabetes mellitus, dyslipidemia, hypertension, seizure disorder, CAD presented with the ED with a chief complaint of shortness of breath for 1 day prior to this admission. according to the daughter the patient has a history of multiple CVA in last August 2024 and after that she he is alert and oriented x1 at [facility]. patient was recently discharged 2 days ago from [facility] after being admitted and treated for septic shock. was noted to be desaturating in home in 70s that prompted this visit. the daughter denied chest pain, abdominal pain, nausea, vomiting, diarrhea, constipation, hematuria, or any change in bowel and bladder habit. Hospital course: Patient was initially presented with acute hypoxic respiratory failure, tachycardia, D-dimer was elevated, Well's score for pulmonary embolism was [address] angio demonstrated destructive endplate changes noted at C6 / 7 with paravertebral soft tissue swelling new when compared to 02/08/2023 and findings are concerning for possible discitis/osteomyelitis. ESR was 91, CRP 3.97 and MRI of cervical spine demonstrated evidence of acute spondylodiscitis at C6-C7 with extensive prevertebral and paraspinal edema. Small prevertebral abscess anterior to C7 vertebral body can not be ruled out. In addition, there is evidence of adjacent paraspinal myositis. Edema noted in the inner spinous space/ligament with no definite fluid collection. Blood C/S was negative and urine C/s demonstrated Enterococcus faecium. Patient was treated with IV vancomycin as per pharmacy and cefepime 2 g IV Q 8 hours and then changed vancomycin to linezolid 600 mg IV b.i.d. due to Enterococcus faecium. Spine surgeon was on board and the patient was initially thought to be transferred to higher level of care for possible spinal surgery for cervical spinal osteomyelitis. Dr. Banerjee from [facility] recommended only continuation of IV antibiotic, no surgery needed and cancel the transfer. formula room worker was consulted for arrangement of home health to continue IV antibiotics for 6 weeks. Spoke with the patient's daughter and was informed that family wants hospice for the patient. Patient is being discharged to hospice. Physical examination: General Appearance: Alert, Oriented X1, Cooperative, Mild distress HEENT: Atraumatic, PERRLA, EOMI, Mucous membrane moist/pink Respiratory: Clear to auscultation, Normal air movement Cardiovascular: Irregular rate, Normal S1, Normal S2, No murmurs, no chest wall tenderness Abdominal: Normal bowel sounds, Soft, No tenderness, No hepatospenomegaly, No masses Extremities: No clubbing, No cyanosis, No edema, Normal pulses, No tenderness/swelling Skin: No rashes, No breakdown, No significant lesion Neuro: Bed bound, Normal speech, Strength at 4/5 X4 ext, Normal tone, Sensation intact, grossly intact cranial nerves. Psych/Mental Status: Mental status NL, Mood N Consults/Reason for consult Spine surgeon was consulted Operations or Procedures Procedure: CT HEAD WITHOUT CONTRAST Study Date and Requested Time: 01/03/2025 07:31 PM History: ams, hx of cva Comparison: CT HEAD WITHOUT CONTRAST on DOS: 02/04/23, HEAD WITHOUT CONTRAST on DOS: 10/25/22 Dose: CTDI: 61.18 mGy DLP: 1205.49 mGycm Technique: Multiplanar images obtained through the brain without intravenous contrast. Findings: [id number] diffuse brain atrophy. Severe chronic small-vessel ischemic changes. Bilateral occipital and right parietal occipital areas of hypodensity which may represent infarct of unknown chronicity. No hemorrhages, masses, midline shift or herniation. No intra-axial or extra- axial fluid collections. No evidence of hydrocephalus. The basal cisterns are patent. The pituitary gland, sella and parasellar regions are unremarkable. The cerebellar tonsils are in normal position. The cerebellum is unremarkable. The orbits and globes are unremarkable. The paranasal sinuses and mastoids are clear. There are no worrisome calvarial lesions. Focal areas of left parietal bilateral frontal and vertex scalp thickening /nodularity measuring up to 3.2 cm. Recommend clinical correlation. Impression: Areas of hypodensities involving the bilateral occipital lobes and right occipitoparietal region which may represent areas of infarct of unknown chronicity. MRI would be helpful for further evaluation. Severe chronic small-vessel ischemic Changes. Superimposed areas of infarct can not be excluded. CTA Chest with intravenous contrast INDICATION: r/o pe COMPARISON: CT 02/08/2023 Findings: Pulmonary artery: No large central or large segmental pulmonary embolism. Lower neck: Normal thyroid. Lungs and Pleura: Mild nodular opacities noted in the left lower lobe. No pneumothorax. No pleural effusion. Heart/Vascular Structures: Normal heart size. No pericardial effusion. Coronary artery calcifications. Right chest wall port terminates in the right atrium. Mild atherosclerotic calcifications of the aorta and its branches. Lymph Nodes: No adenopathy Musculoskeletal: Destructive endplate changes noted at C6-7 with paravertebral soft tissue swelling, new when compared to 02/08/23. Median sternotomy wires. Chest wall: Normal. Upper abdomen: Limited portions of the upper abdomen are unremarkable. IMPRESSION: 1. No central pulmonary embolism. 2. Destructive endplate changes noted at C6-7 with paravertebral soft tissue swelling, new when compared to 02/08/23. Findings are concerning for possible discitis/osteomyelitis. Recommend MRI cervical spine with contrast for further evaluation. 3. Mild nodular opacities noted in the left lower lobe, could represent bronchiolitis of infectious or inflammatory etiology. EXAM: MRI CERVICAL WO CONTRAST; DATE: 01/06/2025 10:15 AM HISTORY: concern for cervical discitis/osteo COMPARISON: CERVICAL WITHOUT CONTRAST on DOS: 10/25/22 TECHNIQUE: MRI was performed utilizing multiple appropriate imaging planes and pulse sequences. FINDINGS: CRANIOCERVICAL JUNCTION: The atlanto-dens interval is within normal limits. There is no evidence for significant cerebellar tonsillar ectopia. BONES: Vertebral body heights are preserved. No acute compression deformities are present. No discrete marrow infiltrative lesion is seen. SPINAL CORD: The spinal cord demonstrates normal signal and morphology throughout its course. No cord edema is present. PARASPINAL SOFT TISSUES: Unremarkable. INTERVERTEBRAL DISCS: C2-C3: Mild broad-based posterior disc bulge, mild right and moderate left posterior facet arthropathy with mild central canal stenosis moderate left neural foramina stenosis with impingement of the left exiting nerve. C3-C4: Mild broad-based posterior disc bulge, bilateral posterior facet and uncovertebral hypertrophy with mild central canal stenosis and moderate bilateral neural foramina stenosis with impingement of the bilateral traversing nerve roots and bilateral exiting nerves. C4-C5: Mild broad-based posterior disc bulge, bilateral posterior facet and uncovertebral hypertrophy with mild central canal stenosis, impingement of the traversing nerve root, moderate left and mild right neural foramina stenosis with impingement of the left exiting nerve. C5-C6: Central and left paracentral disc protrusion, bilateral posterior facet and uncovertebral hypertrophy with resultant mild central canal stenosis moderate to severe bilateral neural foramina stenosis with impingement of the bilateral exiting nerves and the bilateral traversing ventral nerve roots. C6-C7: Fluid at the disc space with extensive adjacent bone marrow edema. Prevertebral soft tissue thickening is seen anterior to C7 that may represent a developing abscess. There is edema in paraspinal musculature reflecting an element of myositis. Edema is also seen in the anterior spinous space/ligament. Mild broad-based posterior disc bulge indenting ventral spinal cord. No abnormal signal in the cord. The bilateral posterior facet are unremarkable. Bilateral uncovertebral hypertrophy noted. Mild bilateral neural foramina stenosis and diffuse edema in the bilateral neural foramina surrounding the exiting nerves. C7-T1: No disc herniation, central canal stenosis, or neuroforaminal stenosis. IMPRESSION: 1. Suboptimal motion degraded an unenhanced study. 2. Evidence of acute spondylodiscitis at C6-C7 with extensive prevertebral and paraspinal edema. Small prevertebral abscess anterior to C7 vertebral body can not be ruled out. Evaluation is markedly limited without IV contrast. In addition, there is evidence of adjacent paraspinal myositis. Edema noted in the inner spinous space/ligament with no definite fluid collection. The posterior facets appear intact with no signs of septic joint. No definite epidural abscess in this limited unenhanced study. Edema in the bilateral neural foramina surrounding the exiting nerves noted. 3. Straightening of normal lordosis, multilevel degenerative disc disease, uncovertebral and posterior facet arthropathy with evidence of nerve impingement throughout the cervical spine. MRI BRAIN WITH CONTRAST CLINICAL HISTORY: evaluate for septic emboli vs ischemic stroke TECHNIQUE: Multiplanar multisequence images of the brain were obtained prior to and following intravenous administration of contrast. 10 cc of gadavist contrast from a prefilled syringe was administered intravenously. Comparison: CT head 01/03/2025 FINDINGS: There is no restricted diffusion. There is a moderate size chronic infarct involving the right occipital and medial temporal lobes with associated encephalomalacia, gliosis and laminar necrosis. There is a similar smaller chronic infarct in the medial left occipital lobe. There are moderate to severe chronic small-vessel ischemic changes in the supratentorial white matter. There is no pathologic enhancement. There is no evidence of acute hemorrhage, mass, mass effect or midline shift. There is no hydrocephalus or extra-axial fluid collection. The visualized intracranial vasculature demonstrates appropriate flow-voids. The midline structures appear unremarkable. The craniocervical junction is within normal limits. The calvarium demonstrates normal marrow signal. There is small amount of fluid in the left mastoid air cells. Paranasal sinuses are clear. IMPRESSION: 1. There is no acute intracranial process. 2. Moderate size chronic infarct involving the right occipital and medial temporal lobes. There is a smaller similar chronic infarct in the medial left occipital lobe. 3. Moderate to severe chronic microvascular white matter ischemic changes. Condition at Discharge: Guarded Final Diagnosis/Problems List # Possible osteomyelitis in the cervical spine # Acute hypoxic respiratory failure,ruled out pulmonary embolism # Persistent atrial fibrillation with secondary hypercoagulable state # History of multiple strokes # History of CAD # Chronic systolic heart failure with improved ejection fraction # Acute hypotension resolved # Acute complicated UTI # Type 2 diabetes mellitus, hemoglobin A1c 6.2 Discharge Disposition: Hospice - Home Discharge Instruct/Medications Diet: Consistent carbohydrate, Cardiac 2g Na,low cholest Activity: No Restrictions, As Tolerated Follow Up/Referral: Follow up with PCP in 1 week as per hospice. Discharge Statement: "Patient was advised to return to the ER or call 911 if any headaches, dizziness, shortness of breath, chest pain, abdominal pain, bleeding, fevers, or worsening of medical condition. Patient was counseled about treatment plan, medications, possible side effects, patientverbalized understanding. All questions were answered to the best of my ability. This discharge took greater then 30 minutes in planning, reviewing documentation, counseling the patient, and discussing with other team members." ASSESSMENT ASSESSMENT Assessment # Possible osteomyelitis in the cervical spine # Acute hypoxic respiratory failure,ruled out pulmonary embolism # Persistent atrial fibrillation with secondary hypercoagulable state # History of multiple strokes # History of CAD # Chronic systolic heart failure with improved ejection fraction # Acute hypotension resolved # Acute complicated UTI # Type 2 diabetes mellitus, hemoglobin A1c 6.2 Date of Service: Jan 09, 2025 Billing Provider: ESTEFANIA HAMMONDS DO Common Visit Codes: [id number] DISCH DAY >30min MALLORIE SALEEM RESIDENT Jan 09, 2025 11:31 ESTEFANIA HAMMONDS DO Jan 10, 2025 20:54
--- NOTE | 2025-01-09 14:22 | DVHPN2 ---
Consult Progress Note Date Seen: Jan 08, 2025 Subjective Patient reports: Other (tolerating IV antibiotics , no fevers , setting well on 2 liters nasal canula . saba catheter has been exchangedand there is clear urine . he does have spinal tenderness on cervical spine) Objective vital signs Vital Sign Date Time Temp Pulse Resp B/P (MAP) Pulse Ox O2 Delivery O2 Flow Rate FiO2 01/09/25 13:00 96.7 87 20 105/68 (80) 94 96.7 01/09/25 08:59 Room Air* 0 21 Total Intake and Output 01/08/25 01/08/25 01/09/25 15:00 23:00 07:00 Intake Total 300 ml 1815 ml 0 ml Output Total 450 ml 300 ml Balance 300 ml 1365 ml -300 ml medications Current Medications Medications Dose Ordered Sig/Luis A Route Start Time Stop Time Status Last Admin Dose Admin Atorvastatin Calcium 20 mg HS PO 01/04/25 22:00 01/08/25 22:37 20 MG Albuterol 2.5 mg Q6HPRN PRN NEB 01/04/25 00:00 01/05/25 00:13 2.5 MG Ondansetron HCl 4 mg Q4HP PRN IV 01/04/25 00:00 Ipratropium [place] 0.5 mg Q6HPRN PRN NEB 01/04/25 09:00 01/05/25 00:13 0.5 MG Pantoprazole Sodium 40 mg DAILY@0600 PO 01/05/25 06:00 01/09/25 06:35 40 MG Insulin Glargine 10 units HS SC 01/06/25 22:00 01/08/25 22:39 10 UNITS Diagnostic Test (Pha) 1 strip ACHS 01/06/25 17:00 01/09/25 06:44 1 STRIP Insulin Human Regular ACHS SC 01/06/25 17:00 01/07/25 22:00 2 UNITS Dextrose 50 ml UD PRN IV 01/06/25 13:15 Cefepime HCl 50 ml @ 12.5 mls/hr Q12HR IV 01/06/25 22:00 01/09/25 08:29 12.5 MLS/HR Enoxaparin Sodium 70 mg Q12HR SC 01/07/25 06:00 01/09/25 08:30 70 MG Linezolid 300 ml @ 150 mls/hr Q12HR IV 01/07/25 22:00 01/09/25 08:29 150 MLS/HR Physical Exam: General: NAD Neck: Supple. No masses. HEENT: PERRL. Normal lids and conjunctiva. Moist mucous membranes. Oropharynx without lesions, exudates or excessive erythema. Normal appearance of the external aspects of the nose and ears. Heart: Regular rhythm, normal rate. No murmur. No lower extremity edema. Lungs: Normal respiratory effort. Clear to auscultation bilaterally. No wheezes. No crackles. Abdomen: Soft. Non-tender. Non-distended. No masses or abdominal hernia. Msk: No digital cyanosis. Normal strength and tone in all 4 limbs Skin: Warm and dry, no rashes. Neuro: Alert. No facial droop or slurred speech. Extra-ocular movements intact. Sensation intact to soft touch in all 4 limbs. Psych: Appropriate mood. Full affect. Oriented to person, place, time, and situation. 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 Nghia Adams is a 74-year-old male with a history of CKD, Afib, COPD, diabetes, dyslipidemia, hypertension, seizure disorder, recent stroke, ND, and previous CABG. He presents with acute hypoxic respiratory failure and was recently discharged from [facility] after treatment for septic shock. At home, he required three liters of oxygen via nasal cannula. Current vital signs demonstrate mild hypoxia on supplemental oxygen. In the ED, ceftriaxone was administered. Recent diagnostics: - Chest X-ray: No acute cardiopulmonary disease. Left costophrenic angle partially visualized, otherwise unremarkable. - Head CT: Areas of hyperdensity in bilateral occipital lobes and right occipital-parietal region, may represent infarction. - Laboratory data: Elevated glucose (218 mg/dL), creatinine 1.15 mg/dL, BUN 31, sodium 137. White blood cell count 6.7, hemoglobin 13.9, platelet count 351, lactic acid 1.8. Urinalysis significant for pyuria, urine leukocytes 3+, few bacteria, yeast present, preliminary urine cultures growing Enterococcus (noted to be vancomycin-resistant). BNP 130, D-dimer 0.96. - The patient is on apixaban and atorvastatin at home. in regards to spinal osteomyelitis: found on CT chest angio: IMPRESSION: 1. No central pulmonary embolism. 2. Destructive endplate changes noted at C6-7 with paravertebral soft tissue swelling, new when compared to 02/08/23. Findings are concerning for possible discitis/osteomyelitis. Recommend MRI cervical spine with contrast for further evaluation. MRI cervical spine: IMPRESSION: 1. Suboptimal motion degraded an unenhanced study. 2. Evidence of acute spondylodiscitis at C6-C7 with extensive prevertebral and paraspinal edema. Small prevertebral abscess anterior to C7 vertebral body can not be ruled out. Evaluation is markedly limited without IV contrast. In addition, there is evidence of adjacent paraspinal myositis. Edema noted in the inner spinous space/ligament with no definite fluid collection. The posterior facets appear intact with no signs of septic joint. No definite epidural abscess in this limited unenhanced study. Edema in the bilateral neural foramina surrounding the exiting nerves noted. TTE w/ lvef 50% hypokinesis of septum mild LVH RV enlarged no severe valve abnormaliteis noted 01/08:patient appears to be more alert , Home antibiotics are being scheduled and awaiting evaluation by neurosurgery . Family desiring alternative placement options , having some hallucinations Plan: - Since Ct head hyperdensities seen are of unknown chronicity cannot rule out possibility of septic emboli to the brain with potentially life threatening edema , would get an MRI brain with and without contrast - consider GHULAM, although patient is likely a poor candidate for procedure - agree with neurosurgical evaluation by Dr sarmiento - once treatment is complete patient will need surveillance cultures, repeat MRI cervical in 6 months, fu as outpatient with neurosurgery and infectious diseases (4 weeks) - Continue linezolid and cefepime for 6 weeks Via portacath - Exchange Saba catheter to facilitate eradication of Enterococcus from the urinary tract. - Fluid support for hypotension, as needed. - Monitor for and manage acute kidney injury; nephrology consult if worsening. - Obtain blood, urine, and sputum cultures. - Swallow evaluation to assess for risk of aspiration given recent stroke and possible metabolic encephalopathy. - Monitor renal function closely while on empiric antibiotics. - Continue home apixaban and atorvastatin. - Strict glucose control for diabetes. - Continue home antihypertensives as tolerated. - Respiratory support as needed. - Monitor for seizures and provide anti-epileptic therapy as indicated. Isolation Precautions: Not specified. Plan discussed with: Other Dietary Evaluation Review Comments: 1. TF glucerna 50ml/hr providing 72 gProtwin, 1440 kcal, supporting 100% protwin needs and 81% energy needs. 2. Follow CCHO-60 diet, when medically feasible.and passing DETENTION OFFICER eval. Expected Outcomes/Goals: Controlled DM, healed wounds VIVI DEL TORO MD Jan 09, 2025 14:22
--- NOTE | 2025-01-09 16:33 | DVHPNRES ---
Progress Note Date Seen: Jan 09, 2025 Resident Creating Document: MALLORIE SALEEM RESIDENT Medical Necessity Reason Pt with a Central, PICC or Fol: No Objective vital signs Vital Sign Date Time Temp Pulse Resp B/P (MAP) Pulse Ox O2 Delivery O2 Flow Rate FiO2 01/09/25 13:00 96.7 87 20 105/68 (80) 94 96.7 01/09/25 08:59 Room Air* 0 21 Total Intake and Output 01/08/25 01/08/25 01/09/25 15:00 23:00 07:00 Intake Total 300 ml 1815 ml 0 ml Output Total 450 ml 300 ml Balance 300 ml 1365 ml -300 ml medications Current Medications Medications Dose Ordered Sig/Luis A Route Start Time Stop Time Status Last Admin Dose Admin Atorvastatin Calcium 20 mg HS PO 01/04/25 22:00 01/08/25 22:37 20 MG Albuterol 2.5 mg Q6HPRN PRN NEB 01/04/25 00:00 01/05/25 00:13 2.5 MG Ondansetron HCl 4 mg Q4HP PRN IV 01/04/25 00:00 Ipratropium [place] 0.5 mg Q6HPRN PRN NEB 01/04/25 09:00 01/05/25 00:13 0.5 MG Pantoprazole Sodium 40 mg DAILY@0600 PO 01/05/25 06:00 01/09/25 06:35 40 MG Insulin Glargine 10 units HS SC 01/06/25 22:00 01/08/25 22:39 10 UNITS Diagnostic Test (Pha) 1 strip ACHS 01/06/25 17:00 01/09/25 06:44 1 STRIP Insulin Human Regular ACHS SC 01/06/25 17:00 01/07/25 22:00 2 UNITS Dextrose 50 ml UD PRN IV 01/06/25 13:15 Cefepime HCl 50 ml @ 12.5 mls/hr Q12HR IV 01/06/25 22:00 01/09/25 08:29 12.5 MLS/HR Enoxaparin Sodium 70 mg Q12HR SC 01/07/25 06:00 01/09/25 08:30 70 MG Linezolid 300 ml @ 150 mls/hr Q12HR IV 01/07/25 22:00 01/09/25 08:29 150 MLS/HR laboratory and microbiology Laboratory Tests 01/09/25 10:50 01/08/25 09:25 Test 01/09/25 10:50 Range/Units Serum Glucose 112 H 74-106 mg/dL Microbiology Date/Time Source Procedure Growth Status 01/05/25 00:00 Nose MRSA Screen - Final Complete 01/03/25 20:00 Voided Urine Urine Culture - Final Enterococcus faecium Complete 01/03/25 18:40 Blood Blood Culture - Final NO GROWTH AFTER 5 DAYS OF INCUBATION. Complete Problem List/Assessment/Plan Problem List/Assessment/Plan Assessment and plan: # Possible osteomyelitis in the cervical spine - Destructive endplate changes noted at C6-7 with paravertebral soft tissue swelling, new when compared to 02/08/23. Findings are concerning for possible discitis/osteomyelitis - ESR is 91 and CRP is 3.97 - MRI of cervical spine demonstrated evidence of acute spondylodiscitis at C6-C7 with extensive prevertebral and paraspinal edema. Small prevertebral abscess anterior to C7 vertebral body can not be ruled out. Evaluation is markedly limited without IV contrast. In addition, there is evidence of adjacent paraspinal myositis. Edema noted in the inner spinous space/ligament with no definite fluid collection. - IV Linezolid 600 mg b.i.d. and IV cefepime 2 g Q 8 hours - Preliminary blood culture demonstrated no growth in 24 hours - Spine surgeon on board and recommended higher level of care for possible spine surgery for cervical spinal osteomyelitis. - Dr. Banerjee from [facility] recommended only continuation of IV antibiotic, no surgery needed and cancel the transfer. # Acute hypoxic respiratory failure likely due to pulmonary embolism - Patient was initially on 6 L oxygen and now titrated down to 2 L oxygen with saturation 97% - History of mobilization and the patient was presented with tachycardia - Well's score for pulmonary embolism is 6 - D-dimer elevated - CT angio ruled out PE. - Albuterol and ipratropium q.6 p.r.n. # Persistent atrial fibrillation with secondary hypercoagulable state # History of multiple strokes # History of CAD # Chronic systolic heart failure with improved ejection fraction # Acute hypotension - CT head without IV contrast demonstrated Areas of hypodensities involving the bilateral occipital lobes and right occipitoparietal region which may represent areas of infarct of unknown chronicity. Severe chronic small-vessel ischemic Changes. Superimposed areas of infarct -HLVR5GLJs score 8 - Aspirin 81 mg daily and therapeutic Lovenox 1 milligram/kg b.i.d. - Echo consulted EF 50% - Hold GDMT because of the hypotension - Atorvastatin 20 mg p.o. at HS # Acute complicated UTI - U/A was consistent with UTI - Ordered urine bacterial culture - IV ertapenem 1 g daily # Type 2 diabetes mellitus, hemoglobin A1c 6.2 - Mild sliding scale of insulin # DVT prophylaxis - Patient is on Lovenox # PUD prophylaxis - Protonix 40 mg p.o. daily Goal of care discussed with the patient for more than 20 minutes full code Plan discussed with Dr. leyva My Orders My Orders Orders - MALLORIE SALEEM RESIDENT Procedure Category Date Status Time * Administrative Appeals Tribunal Member CONS 01/09/25 Transmitted Consult Discharge DISCHARGE 01/09/25 Transmitted 10:35 Dietary Evaluation Review Comments: 1. TF glucerna 50ml/hr providing 72 gProtwin, 1440 kcal, supporting 100% protwin needs and 81% energy needs. 2. Follow CCHO-60 diet, when medically feasible.and passing REJECTED ITEMS CLERK eval. Expected Outcomes/Goals: Controlled DM, healed wounds MALLORIE SALEEM RESIDENT Jan 09, 2025 16:33
--- NOTE | 2025-01-09 21:17 | DVHPN2 ---
Consult Progress Note Date Seen: Jan 09, 2025 Subjective Patient reports: Feels better (doing better , settin on room air and has no tenderness. Was seen by neurosurgery . patient has a piccline in place that appears to be functioning ) Objective vital signs Vital Sign Date Time Temp Pulse Resp B/P (MAP) Pulse Ox O2 Delivery O2 Flow Rate FiO2 01/09/25 13:00 96.7 87 20 105/68 (80) 94 96.7 01/09/25 08:59 Room Air* 0 21 Total Intake and Output 01/08/25 01/08/25 01/09/25 15:00 23:00 07:00 Intake Total 300 ml 1815 ml 0 ml Output Total 450 ml 300 ml Balance 300 ml 1365 ml -300 ml medications Physical Exam: General: NAD Neck: Supple. No masses. HEENT: PERRL. Normal lids and conjunctiva. Moist mucous membranes. Oropharynx without lesions, exudates or excessive erythema. Normal appearance of the external aspects of the nose and ears. Heart: Regular rhythm, normal rate. No murmur. No lower extremity edema. Lungs: Normal respiratory effort. Clear to auscultation bilaterally. No wheezes. No crackles. Abdomen: Soft. Non-tender. Non-distended. No masses or abdominal hernia. Msk: No digital cyanosis. Normal strength and tone in all 4 limbs Skin: Warm and dry, no rashes. Neuro: Alert. No facial droop or slurred speech. Extra-ocular movements intact. Sensation intact to soft touch in all 4 limbs. Psych: Appropriate mood. Full affect. Oriented to person, place, time, and situation. 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 Nghia Adams is a 74-year-old male with a history of CKD, Afib, COPD, diabetes, dyslipidemia, hypertension, seizure disorder, recent stroke, SD, and previous CABG. He presents with acute hypoxic respiratory failure and was recently discharged from [facility] after treatment for septic shock. At home, he required three liters of oxygen via nasal cannula. Current vital signs demonstrate mild hypoxia on supplemental oxygen. In the ED, ceftriaxone was administered. Recent diagnostics: - Chest X-ray: No acute cardiopulmonary disease. Left costophrenic angle partially visualized, otherwise unremarkable. - Head CT: Areas of hyperdensity in bilateral occipital lobes and right occipital-parietal region, may represent infarction. - Laboratory data: Elevated glucose (218 mg/dL), creatinine 1.15 mg/dL, BUN 31, sodium 137. White blood cell count 6.7, hemoglobin 13.9, platelet count 351, lactic acid 1.8. Urinalysis significant for pyuria, urine leukocytes 3+, few bacteria, yeast present, preliminary urine cultures growing Enterococcus (noted to be vancomycin-resistant). BNP 130, D-dimer 0.96. - The patient is on apixaban and atorvastatin at home. in regards to spinal osteomyelitis: found on CT chest angio: IMPRESSION: 1. No central pulmonary embolism. 2. Destructive endplate changes noted at C6-7 with paravertebral soft tissue swelling, new when compared to 02/08/23. Findings are concerning for possible discitis/osteomyelitis. Recommend MRI cervical spine with contrast for further evaluation. MRI cervical spine: IMPRESSION: 1. Suboptimal motion degraded an unenhanced study. 2. Evidence of acute spondylodiscitis at C6-C7 with extensive prevertebral and paraspinal edema. Small prevertebral abscess anterior to C7 vertebral body can not be ruled out. Evaluation is markedly limited without IV contrast. In addition, there is evidence of adjacent paraspinal myositis. Edema noted in the inner spinous space/ligament with no definite fluid collection. The posterior facets appear intact with no signs of septic joint. No definite epidural abscess in this limited unenhanced study. Edema in the bilateral neural foramina surrounding the exiting nerves noted. TTE w/ lvef 50% hypokinesis of septum mild LVH RV enlarged no severe valve abnormaliteis noted 01/08:patient appears to be more alert , Home antibiotics are being scheduled and awaiting evaluation by neurosurgery . Family desiring alternative placement options , having some hallucinations 01/09: Patient was seen by Dr Way team and they are thinking upon review of the MRI results of the cervical spine , recommended that patient be transferred to a higher level of care at [facility] for Neurosurgical consult as this patient will need cervical spine intervention which will include anterior and posterior surgeries , possible corpectomy , concern for infective abscess in apertura space of cervical spine which we are not equip to do in this area . this is an urgent matter and patient should be transferred as soon as possible. MRI of the brain was done and showed no acute intracranial process and a modern in size infarct involving occipital and medial temporal lobe , there is a smaller chronic infarct in medial left occipital lobe , moderate to severe chronic microvascular ischemic changes Plan: - in light of ongoing concern for severe osteomyelitis as well as epidural abscess would want something with good brain penetration , current linezolid provides excellent brain penetration and daptomycin would confer less brain penetration - continue linezolid and cefepime 2 grams every 8 hours - defer to neurosurgery , they are recommending higher level of care and I am in agreement with this plan - Since Ct head hyperdensities seen are of unknown chronicity cannot rule out possibility of septic emboli to the brain with potentially life threatening edema , would get an MRI brain with and without contrast - consider GHULAM, although patient is likely a poor candidate for procedure - agree with neurosurgical evaluation by Dr sarmiento - once treatment is complete patient will need surveillance cultures, repeat MRI cervical in 6 months, fu as outpatient with neurosurgery and infectious diseases (4 weeks) - Continue linezolid and cefepime for 6 weeks Via portacath - Exchange Martínez catheter to facilitate eradication of Enterococcus from the urinary tract. - Fluid support for hypotension, as needed. - Monitor for and manage acute kidney injury; nephrology consult if worsening. - Obtain blood, urine, and sputum cultures. - Swallow evaluation to assess for risk of aspiration given recent stroke and possible metabolic encephalopathy. - Monitor renal function closely while on empiric antibiotics. - Continue home apixaban and atorvastatin. - Strict glucose control for diabetes. - Continue home antihypertensives as tolerated. - Respiratory support as needed. - Monitor for seizures and provide anti-epileptic therapy as indicated. Isolation Precautions: Not specified. Plan discussed with: Other Dietary Evaluation Review Comments: 1. TF glucerna 50ml/hr providing 72 gProtwin, 1440 kcal, supporting 100% protwin needs and 81% energy needs. 2. Follow CCHO-60 diet, when medically feasible.and passing HEADWAITRESS eval. Expected Outcomes/Goals: Controlled DM, healed wounds VIVI DEL TORO MD Jan 09, 2025 21:17
== END 2025-01-09 15:45 | disposition hospice, home (50) | DRG 70 ==
LOC: EDBD 18:10 → EDUNIT# 18:10 → ER 18:19 → OVERFLOW 23:48 → CENTRAL 01-04 21:56
PROVIDERS: ADMIT Internal Medicine; ATTEND Internal Medicine
DX: G93.41 Metabolic encephalopathy (principal); G06.2 Extradural and subdural abscess, unspecified; J96.01 Acute respiratory failure with hypoxia; M46.22 Osteomyelitis of vertebra, cervical region; N39.0 Urinary tract infection, site not specified; I13.0 Hypertensive heart and chronic kidney disease with heart failure and stage 1 through stage 4 chronic kidney disease, or unspecified chronic kidney disease; I48.19 Other persistent atrial fibrillation; D68.69 Other thrombophilia; I50.22 Chronic systolic (congestive) heart failure; E11.69 Type 2 diabetes mellitus with other specified complication; E11.22 Type 2 diabetes mellitus with diabetic chronic kidney disease; Z51.5 Encounter for palliative care; I95.9 Hypotension, unspecified; I25.10 Atherosclerotic heart disease of native coronary artery without angina pectoris; G40.909 Epilepsy, unspecified, not intractable, without status epilepticus; E78.5 Hyperlipidemia, unspecified; J44.89 Other specified chronic obstructive pulmonary disease; M48.02 Spinal stenosis, cervical region; N18.9 Chronic kidney disease, unspecified; Z86.73 Personal history of transient ischemic attack (TIA), and cerebral infarction without residual deficits; Z95.1 Presence of aortocoronary bypass graft; Z79.4 Long term (current) use of insulin; Z79.891 Long term (current) use of opiate analgesic; Z79.899 Other long term (current) drug therapy; I25.2 Old myocardial infarction; Z83.3 Family history of diabetes mellitus; Z82.62 Family history of osteoporosis; Z82.5 Family history of asthma and other chronic lower respiratory diseases; Z82.49 Family history of ischemic heart disease and other diseases of the circulatory system; Z82.3 Family history of stroke; Z82.0 Family history of epilepsy and other diseases of the nervous system; Z81.8 Family history of other mental and behavioral disorders; Z80.8 Family history of malignant neoplasm of other organs or systems; Z80.42 Family history of malignant neoplasm of prostate; Z80.3 Family history of malignant neoplasm of breast; Z80.1 Family history of malignant neoplasm of trachea, bronchus and lung; Z80.0 Family history of malignant neoplasm of digestive organs
CPT/HCPCS: 36415; 36600; 70450; 70553; 71045; 71275; 72141; 72146; 80048; 80202; 81001; 82140; 82306; 82565; 82607; 82805; 82962; 83036; 83605; 83880; 84443; 84484; 85025; 85379; 85652; 86141; 87040; 87081; 87086; 87088; 87186; 93005; 93306; 94640; 96365; 96367; 99291; G0378; J0692; J1335; J1815